=== PATIENT | female | born 1930 | race Caucasian/White ===

== ENCOUNTER 2017-08-01 13:08 | Outpatient (RCR) | payer MEDICARE, OTHER ==
[~2017-08-01 13:08] MED LIST: ALTACE; ASA81 MG; CARVEDILOL3.125 MG PO; COUMADIN3 MG PO; CRESTOR10 MG PO; ESIDRIX25 MG PO; IRBESARTAN150 MG PO; MINERAL OIL/PETROLAT/GLYCERI 6OZ BTL ONE; MUPIROCIN 2% OINT 22 GM TUBE ONE; NORCO 5-325 TA1 EACH PO; OMEPRAZOLE20 MG PO; OMEPRAZOLE40 MG PO; POTASSIUM CITRA5 MEQ PO; PREDNISONE2.5 MG PO; RAMIPRIL10 MG PO; WARFARIN SODIUM1 MG PO; WARFARIN SODIUM3 MG PO; Z.0.BENICAR HCT 201; Z.0.CARVEDILOL6.25 M PO; Z.0.CRESTOR10 MG PO; Z.0.RAMIPRIL10 MG PO; [UNRECOGNIZED DRUG - REMARK]
== END 2017-08-04 ==
LOC: WCC 13:08
PROVIDERS: ATTEND Podiatrist Foot & Ankle Surgery
DX: L89.622 Pressure ulcer of left heel, stage 2 (principal); L23.9 Allergic contact dermatitis, unspecified cause; I87.2 Venous insufficiency (chronic) (peripheral); R60.0 Localized edema; W45.8XXA Other foreign body or object entering through skin, initial encounter; Z74.01 Bed confinement status
CPT/HCPCS: 29581; G0463

== ENCOUNTER → 2017-09-04 | Outpatient (RCR) | payer MEDICARE, OTHER ==
[~2017-09-04] MED LIST changes: +LIDOCAINE VISC 2% SOLN 15 ML UDC ONE
== END ==
LOC: WCC 08-09 15:02
PROVIDERS: ATTEND Podiatrist Foot & Ankle Surgery
DX: I87.332 Chronic venous hypertension (idiopathic) with ulcer and inflammation of left lower extremity (principal); I87.331 Chronic venous hypertension (idiopathic) with ulcer and inflammation of right lower extremity; L97.321 Non-pressure chronic ulcer of left ankle limited to breakdown of skin; L97.311 Non-pressure chronic ulcer of right ankle limited to breakdown of skin; R60.0 Localized edema; I87.2 Venous insufficiency (chronic) (peripheral); W45.8XXA Other foreign body or object entering through skin, initial encounter; Z74.01 Bed confinement status
CPT/HCPCS: 29581 ×7; G0463 ×3

== ENCOUNTER 2017-09-27 10:55 | Outpatient (RCR) | payer MEDICARE, OTHER ==
[~2017-09-27 10:55] MED LIST changes: -LIDOCAINE VISC 2% SOLN 15 ML UDC ONE; -MINERAL OIL/PETROLAT/GLYCERI 6OZ BTL ONE
[2017-09-27] MEDS ORDERED: MUPIROCIN 2% OINT 22 GM TUBE ONE (15:32)
[2017-09-27] MEDS ORDERED: MINERAL OIL/PETROLAT/GLYCERI 6OZ BTL ONE (15:32)
== END 2017-10-02 ==
LOC: WCC 10:55
PROVIDERS: ATTEND Podiatrist Foot & Ankle Surgery
DX: S41.101A Unspecified open wound of right upper arm, initial encounter (principal); S41.102A Unspecified open wound of left upper arm, initial encounter; I87.2 Venous insufficiency (chronic) (peripheral); I89.0 Lymphedema, not elsewhere classified; R60.0 Localized edema; L24.1 Irritant contact dermatitis due to oils and greases; L25.1 Unspecified contact dermatitis due to drugs in contact with skin; S59.919A Unspecified injury of unspecified forearm, initial encounter; S80.919A Unspecified superficial injury of unspecified knee, initial encounter; W45.8XXA Other foreign body or object entering through skin, initial encounter; Z74.01 Bed confinement status

== ENCOUNTER 2017-10-15 13:11 | Outpatient (RCR) | payer MEDICARE, OTHER ==
[~2017-10-15 13:11] MED LIST changes: +MINERAL OIL/PETROLAT/GLYCERI 6OZ BTL ONE; -MUPIROCIN 2% OINT 22 GM TUBE ONE
[2017-10-15] MEDS ORDERED: MINERAL OIL/PETROLAT/GLYCERI 6OZ BTL ONE (18:42)
[2017-10-15] MEDS ORDERED: MUPIROCIN 2% OINT 22 GM TUBE ONE (18:42)
[2017-10-18] MEDS ORDERED: CYMBALTA30 MG PO (11:20)
[2017-10-18] MEDS ORDERED: MYRBETRIQ25 MG PO (11:20)
[2017-10-18] MEDS ORDERED: VESICARE5 MG PO (11:20)
[2017-10-18] MEDS ORDERED: FOLIC ACID1 MG PO (11:22)
[2017-10-18] MEDS ORDERED: METHOTREXATE2.5 MG PO (11:22)
== END 2017-11-02 ==
LOC: WCC 13:11
PROVIDERS: ATTEND Podiatrist Foot & Ankle Surgery
DX: I87.311 Chronic venous hypertension (idiopathic) with ulcer of right lower extremity (principal); L97.811 Non-pressure chronic ulcer of other part of right lower leg limited to breakdown of skin; L89.92 Pressure ulcer of unspecified site, stage 2; S80.821A Blister (nonthermal), right lower leg, initial encounter; S41.102A Unspecified open wound of left upper arm, initial encounter; S41.101A Unspecified open wound of right upper arm, initial encounter; I87.2 Venous insufficiency (chronic) (peripheral); R60.0 Localized edema; I89.0 Lymphedema, not elsewhere classified; W45.8XXA Other foreign body or object entering through skin, initial encounter; Z74.01 Bed confinement status

== ENCOUNTER 2017-10-18 11:05 | Inpatient (IN) | payer MEDICARE, OTHER ==
[~2017-10-18] VITALS: Ht 162.6 cm; Wt 78.7 kg
[~2017-10-18 11:05] MED LIST changes: -MINERAL OIL/PETROLAT/GLYCERI 6OZ BTL ONE
--- OUTSIDE RECORDS SUMMARY | 2017-10-18 11:09 | XMS REPORT | Continuity of Care Document ---
Author Author [facility] Organization [facility] Address [address] [place] [address] Phone Unavailable Care Team Providers Care Protohistorian Name Role Phone VINEET CRUM MD PCP Insurance Providers Guarantor Oj Araiza Address [address] [place] [address] Email [email or web address] Payer AARP Policy Number [id number] Subscriber's Name Oj Araiza R Relationship 18 Self / Same As Patient Group Number [id number] Group Name RETIRED Effective Date 16 Payer Medicare A & B Policy Number [id number] Subscriber's Name Oj Araiza R Relationship 18 Self / Same As Patient Group Number [id number] Group Name RETIRED Effective Date 97 Payer Aetna o Policy Number [id number] Subscriber's Name Oj Araiza R Relationship 18 Self / Same As Patient Group Number [id number] Group Name [id number] Effective Date 91 Advance Directives Directive Response Recorded Date/Time Does the patient have an advance directive? No 11/02/15 8:43am If yes, is advance directive on file with [facility]? No 10/23/14 7:00am If not on file with [facility] will patient provide a copy? No 11/02/15 8:43am Do you have a Directive to Physician? No 09/06/17 11:41am Do you have a Medical Power of Renovation Plant Supervisor? No 09/06/17 11:41am Do you have an out of hospital Do Not Resuscitate Order? No 09/06/17 11:41am Do you have any special needs we should be aware of? No 09/06/17 11:41am Do you have a support person here with you today? No 09/06/17 11:41am Did patient receive Notice of Privacy Practices? Yes 09/06/17 11:41am Did patient receive patient rights and responsibilities? Yes 09/06/17 11:41am Problems Medical Problem Onset Date Status Acute renal insufficiency 10/23/2014 Acute Chest pain 10/23/2014 Acute Hyperkalemia 10/23/2014 Acute Medications Current Home Medications Medication Dose Units Route Directions Days Qty Instructions Start Date Carvedilol 3.125 Mg Tablet 6.25 Mg Oral Twice A Day 60 Tab Hydrochlorothiazide (Esidrix*) 25 Mg Tab 12.5 Mg Oral Daily Hydrocodone Bit/Acetaminophen (Liberty 5-325 Tablet) 1 Each Tablet 1 Each Oral Every 6 Hours as needed for Pain Irbesartan 150 Mg Tablet 150 Mg Oral Daily 30 Tab Omeprazole 20 Mg Capsule.dr 20 Mg Oral Daily Potassium Citrate 5 Meq Tablet.er 5 Meq Oral Three Times A Day Prednisone 2.5 Mg Tablet 1.25 Mg Oral Daily Ramipril 10 Mg Capsule 10 Mg Oral Twice A Day Rosuvastatin Calcium (Crestor) 10 Mg Tab 10 Mg Oral Daily THERAPEUTICALLY SUBSTITUTED WITH SIMVASTATIN 40MG Unknown Med For Ra Warfarin Sodium 1 Mg Tablet 1.5 Mg Oral Daily 30 Tab Past Home Medications Medication Directions Ordered Status Aspirin (Asa) 81 Mg Tab, Discontinued Carvedilol 6.25 Mg Tablet, 6.25 Mg Oral Twice A Day Discontinued Hydrochlorothiazide (Esidrix*) 25 Mg Tab, 12.5 Mg Oral Daily Discontinued Hydrocodone Bit/Acetaminophen (Liberty 5-325 Tablet) 1 Each Tablet, 1 Each Oral Every 6 Hours as needed for Pain Discontinued Irbesartan 150 Mg Tablet, 150 Mg Oral Daily Discontinued Olmesartan/Hydrochlorothiazide (Benicar Hct 20-12.5 Mg Tablet) 1 Each Tablet, Discontinued Omeprazole 40 Mg Capsule.dr, 20 Mg Oral Daily Discontinued Potassium Citrate 5 Meq Tablet.er, Meq Oral Three Times A Day Discontinued Ramipril 10 Mg Capsule, 10 Mg Oral Twice A Day Discontinued Rosuvastatin Calcium (Crestor) 10 Mg Tablet, 10 Mg Oral Daily Discontinued Warfarin Sodium 3 Mg Tablet, 1 Mg Oral Daily Discontinued Warfarin Sodium (Coumadin*) 3 Mg Tablet, 1 Mg Oral Today At 5:00PM Discontinued Social History Social History Problem Response Recorded Date/Time Onset Date Status Hx Psychiatric Problems No 10/23/2014 7:00am Not Applicable Not Applicable Hospital Discharge Instructions No hospital discharge instruction information available. Plan of Care Prescriptions See Medication Section Functional Status No functional status information available. Allergies, Adverse Reactions, Alerts Allergen Type Severity Reaction Status Last Updated Morphine Adverse Reaction Intermediate VOMITING, DIARRHEA Active 11/14/14 Immunizations No immunization information available. Vital Signs No vital sign information available. Results No relevant diagnostic test, laboratory data and/or discharge summary information available. Procedures No procedure information available. Encounters Encounter Location Arrival/Admit Date Discharge/Depart Date Attending Provider Discharged [facility] 09/27/17 10:55am 11:59pm DAAN FRY DPM Discharged [facility] 08/09/17 3:02pm 09/04/17 11:59pm DANA FRY DPM Discharged [facility] 07/05/17 1:22pm 08/04/17 11:59pm YANETH WOODWARD DPM Discharged [facility] 06/20/17 1:29pm 07/04/17 11:59pm YANETH WOODWARD DPM Registered Clinic [facility] 02/18/17 8:51am VINEET CRUM MD
--- OUTSIDE RECORDS SUMMARY | 2017-10-18 11:09 | XMS REPORT | Clinical Summary ---
Author Author [facility] Organization [facility] Address Unknown Phone Unavailable Care Team Providers Care Cap Lining Machine Operator Name Role Phone Jorge Larson MD PCP Unavailable Allergies Active Allergy Reactions Severity Noted Date Comments Morphine 07/27/2017 Current Medications Prescription Sig. Disp. Refills Start End Date Status Date ciprofloxacin (CIPRO) 500 Take 1 tablet (500 mg 14 tablet 0 07/27/20 08/03/20 MG tablet total) by mouth 2 (two) 17 17 times a day for 7 days. Active Problems Problem Noted Date Urinary tract infectious disease 12/03/2015 Encounters Date Type Specialty Care Team Description 07/27/2017 Emergency Emergency Medicine Divya Fernando MD Acute cystitis with hematuria (Primary Dx); Poisoning by warfarin sodium, accidental or unintentional, initial encounter after 10/17/2016 Immunizations Name Dates Previously Given Next Due Pneumococcal Conjugate 03/16/2015 13-Valent Social History Tobacco Use Types Packs/Day Years Used Date Never Smoker Smokeless Tobacco: Never Used Alcohol Use Drinks/Week oz/Week Comments No Sex Assigned at Date Recorded Not on file Last Filed Vital Signs Vital Sign Reading Time Taken Blood Pressure 142/63 07/27/2017 12:00 PM MACHINE BILLER Pulse 70 07/27/2017 12:00 PM MACHINE BILLER Temperature 37.7 C (99.8 F) 07/27/2017 9:45 AM MACHINE BILLER Respiratory Rate 16 07/27/2017 12:00 PM MACHINE BILLER Oxygen Saturation 98% 07/27/2017 12:00 PM MACHINE BILLER Inhaled Oxygen - - Concentration Weight 76.7 kg (169 lb) 07/27/2017 9:45 AM MACHINE BILLER Height 162.6 cm (5' 4") 07/27/2017 9:45 AM MACHINE BILLER Body Mass Index 29.01 07/27/2017 9:45 AM MACHINE BILLER Plan of Treatment Not on file Results * Urinalysis screen and microscopy, with reflex to culture (07/27/2017 10:09 AM) Component Value Ref Range Specimen site Clean catch Color, UA Yellow Appearance, UA Slightly-Cloudy Specific gravity, UA 1.014 1.001 - 1.035 pH, UA 5.0 5.0 - 8.5 Protein, UA 1+ (A) Negative Glucose, UA Negative Negative Ketones, UA Negative Negative Bilirubin, UA Negative Negative Blood, UA Large (A) Negative Nitrite, UA Negative Negative Urobilinogen, UA Negative <2.0 Leukocyte esterase, UA Negative Negative Round epithelial cells, Many 0 - 1 /HPF UA WBC, UA 61-80 (H) 0 - 4 /HPF RBC, UA 61-80 (H) 0 - 2 /HPF Bacteria, UA Trace None seen WBC clumps, UA Few (A) Yeast, UA Moderate (A) Yeast with pseudohyphae, None seen UA Specimen Performing Laboratory Urine [facility] DEPARTMENT OF PATHOLOGY AND GENOMIC MEDICINE [address] [place] [address] [place] [address] * Gram stain (07/27/2017 10:09 AM) Component Value Ref Range Gram stain result No WBC's or organisms seen. Comment: Specimen Information Specimen Source: Urine Specimen Site: See UA Specimen Performing Laboratory Urine [facility] DEPARTMENT OF PATHOLOGY AND GENOMIC MEDICINE [address] [place] [address] * Urine culture (07/27/2017 10:09 AM) Component Value Ref Range Urine culture isolate Mixed Gram positive sumaya 10-2 cfu/ml (A) Comment: Specimen Information Specimen Source: Urine Specimen Site: See UA Urine culture isolate Gram negative rods <10-1 cfu/ml (A) Specimen Performing Laboratory Urine [facility] DEPARTMENT OF PATHOLOGY AND GENOMIC MEDICINE [address] [place] [address] * Prothrombin time with INR (07/27/2017 9:58 AM) Component Value Ref Range Prothrombin time 54.3 (H) 12.0 - 15.0 sec INR 5.9 (HH) Comment: The International Normalized Ratio (INR) is a therapeutic monitoring tool for patients who are stable on oral anticoagulant therapy. An INR of 2.0-3.0 is suggested for deep vein thrombosis/pulmonary embolism. Results called to and read back by TANJA LOVELACE IN ER 07/27/2017 @ 10:37 by PARISH. Specimen Performing Laboratory Blood [facility] DEPARTMENT OF PATHOLOGY AND GENOMIC MEDICINE [address] [place] [address] * CBC hemogram (07/27/2017 9:58 AM) Component Value Ref Range WBC 9.08 4.50 - 11.00 k/uL RBC 3.56 (L) 4.20 - 5.50 m/uL HGB 10.6 (L) 12.0 - 16.0 g/dL HCT 33.5 (L) 37.0 - 47.0 % MCV 94.1 82.0 - 100.0 fL MCH 29.8 27.0 - 34.0 pg MCHC 31.6 31.0 - 37.0 g/dL RDW - SD 55.5 (H) 37.0 - 55.0 fL MPV 10.2 8.8 - 13.2 fL Platelet count 214 150 - 400 k/uL Nucleated RBC 0.00 /100 WBC Specimen Performing Laboratory Blood [facility] DEPARTMENT OF PATHOLOGY AND GENOMIC MEDICINE [address] [place] [address] after 10/17/2016 Insurance Payer Benefit Subscriber ID Type Phone Address Plan / Group AETNA AETNA xxxxxxxxxx HMO HMO,POS,EP O, MC/EC MEDICARE MEDICARE xxxxxxxxxx Medicare [place], [place] PART A AND B AARP AARP xxxxxxxxxx [place] [address]
[2017-10-18] MEDS ORDERED: SODIUM CHLORIDE 0.9% 1000ML 1,000 ML IV STA (11:17)
[2017-10-18] MEDS ORDERED: CYMBALTA30 MG PO (11:20)
[2017-10-18] MEDS ORDERED: MYRBETRIQ25 MG PO (11:20)
[2017-10-18] MEDS ORDERED: VESICARE5 MG PO (11:20)
[2017-10-18] MEDS ORDERED: METHOTREXATE2.5 MG PO (11:22)
[2017-10-18] MEDS ORDERED: FOLIC ACID1 MG PO (11:22)
[2017-10-18] MEDS ORDERED: TETANUS/DIPHTHERIA TOX ADULT 0.5 ML SYR IM ONE (11:30)
[2017-10-18 11:49] LABS: BASOPHILS % 0.1 % (0.0-1.0); EOSINOPHILS % 0.2 % (0.0-6.0); HEMATOCRIT 31.9 % (34.2-44.1); HEMOGLOBIN 10.6 g/dL (12.0-16.0); LYMPHOCYTES # (AUTO) 0.5 (1.0-3.2); LYMPHOCYTES % 5.7 % (18.0-39.1); MEAN CORPUSCULAR HEMOGLOBIN 29.1 pg (28-32); MEAN CORPUSCULAR HGB CONC 33.2 g/dL (31-35); MEAN CORPUSCULAR VOLUME 87.6 fL (81-99); MONOCYTES % 0.2 % (4.4-11.3); NEUTROPHILS # (AUTO) 8.8 (2.1-6.9); NEUTROPHILS % 93.4 % (38.7-80.0); PLATELET COUNT 188 x10e3/uL (140-360); RED BLOOD COUNT 3.64 x10e6/uL (3.6-5.1); RED CELL DISTRIBUTION WIDTH 16.3 % (11.7-14.4)
[2017-10-18 11:55] LABS: PARTIAL THROMBOPLASTIN TIME 90.4 seconds (23.8-35.5)
[2017-10-18 11:57] LABS: INR 11.86; PROTHROMBIN TIME 85.6 seconds (11.9-14.5)
[2017-10-18] MEDS ORDERED: PANTOPRAZOLE 40 MG 10ML VIAL IV STA (11:58)
[2017-10-18 12:05] LABS: ALBUMIN 2.3 g/dL (3.5-5.0); ALBUMIN/GLOBULIN RATIO 0.9 (0.8-2.0); ANION GAP 20.6 mmol/L (8-16); CALCIUM 9.1 mg/dL (8.4-10.2); CREATININE, SERUM 2.63 mg/dL (0.57-1.11); POTASSIUM 5.6 mmol/L (3.5-5.1)
[2017-10-18] MEDS ORDERED: PIPER-TAZ 3.375 GM 50 ML IV STA (12:05)
--- NOTE | 2017-10-18 12:06 | Diagnostic Imaging Report ---
PROCEDURE: A single AP view of the chest. COMPARISON: 10/23/14 INDICATIONS: LEG WEAKNESS FINDINGS: Lines/tubes: None. Lungs: Low lung volumes. Left lower lung field linear atelectasis/scarring. Mild central vascular congestion. Pleura: There is no pleural effusion or pneumothorax. Heart and mediastinum: Enlarged cardiomediastinal silhouette, accentuated by low lung volumes. Median sternotomy wires. Bones: No acute bony abnormality. Partially imaged lumbar spine fixation hardware. Right humeral head prosthesis. IMPRESSION: Limited by shallow inspiration. Mild central vascular congestion and enlarged cardiomediastinal silhouette, accentuated by low lung volumes. Dictated by: Nate Becerra M.D. on 10/18/2017 at 12:06 Electronically approved by: Nate Becerra M.D. on 10/18/2017 at 12:06
[2017-10-18 12:09] LABS: MAGNESIUM 0.9 MG/DL (1.3-2.1)
[2017-10-18] MEDS ORDERED: ONDANSETRON HCL INJ 2 MG/ML VIAL IV PRN (12:15)
[2017-10-18] MEDS ORDERED: MAGNESIUM SULFATE 2GM/50ML 50 ML IV ONE (12:15)
[2017-10-18] MEDS ORDERED: FENTANYL CITRATE/PF 100MCG/2 ML INJ IV SCH (12:15)
[2017-10-18 12:18] LABS: BILIRUBIN,URINE NEGATIVE (NEGATIVE); CLARITY,URINE CLEAR (CLEAR); COLOR,URINE YELLOW (YELLOW); KETONES,URINE NEGATIVE (NEGATIVE); LEUKOCYTE ESTERASE ,URINE NEGATIVE (NEGATIVE); NITRITE,URINE NEGATIVE (NEGATIVE); PROTEIN,URINE DIPSTICK NEGATIVE (NEGATIVE); URINE UROBILINOGEN 0.2 mg/dL (0.2 - 1)
[2017-10-18 12:24] LABS: THYROID STIMULATING HORMONE 2.019 uIU/mL (0.350-4.940)
[2017-10-18] MEDS ORDERED: SOD POLYSTYRENE SULFONATE SUSP 15 GM/60 ML BTL PO ONE ×2 (12:30→19:30)
[2017-10-18 12:33] LABS: BACTERIA,URINE FEW /HPF; EPITHELIAL CELLS,URINE RARE /LPF; WBC,URINE (MAN) 0-5 /HPF (0-5)
[2017-10-18 12:34] LABS: AMORPHOUS SEDIMENT,URINE MODERATE (FEW)
[2017-10-18 12:40] LABS: LYMPHOCYTES % (MANUAL) 4 % (19-48); NEUTROPHILS % (MANUAL) 96 % (40-74)
[2017-10-18 12:42] LABS: ANISOCYTOSIS SLIGHT; PLATELET ESTIMATE ADEQUATE; PLATELET MORPHOLOGY COMMENT NORMAL; RBC MORPHOLOGY COMMENT NORMAL
--- OUTSIDE RECORDS SUMMARY | 2017-10-18 12:58 | XMS REPORT | Clinical Summary ---
Author Author [facility] Organization [facility] Address Unknown Phone Unavailable Care Team Providers Care Bonsai Tender Name Role Phone Jorge Larson MD PCP [...] Taken Blood Pressure 142/63 07/27/2017 12:00 PM EXHIBITIONS AND COLLECTIONS MANAGER Pulse 70 07/27/2017 12:00 PM EXHIBITIONS AND COLLECTIONS MANAGER Temperature 37.7 C (99.8 F) 07/27/2017 9:45 AM EXHIBITIONS AND COLLECTIONS MANAGER Respiratory Rate 16 07/27/2017 12:00 PM EXHIBITIONS AND COLLECTIONS MANAGER Oxygen Saturation 98% 07/27/2017 12:00 PM EXHIBITIONS AND COLLECTIONS MANAGER Inhaled Oxygen - - Concentration Weight 76.7 kg (169 lb) 07/27/2017 9:45 AM EXHIBITIONS AND COLLECTIONS MANAGER Height 162.6 cm (5' 4") 07/27/2017 9:45 AM EXHIBITIONS AND COLLECTIONS MANAGER Body Mass Index 29.01 07/27/2017 9:45 AM EXHIBITIONS AND COLLECTIONS MANAGER Plan of Treatment Not on file Results [...] None seen UA Specimen Performing Laboratory Urine [facility] DEPARTMENT OF PATHOLOGY AND GENOMIC MEDICINE [address] [place] [address] [place] [address] * Gram stain (07/27/2017 10:09 AM) Component Value Ref Range Gram stain result No WBC's or organisms seen. Comment: Specimen Information Specimen Source: Urine Specimen Site: See UA Specimen Performing Laboratory Urine [facility] DEPARTMENT OF PATHOLOGY AND GENOMIC MEDICINE [address] [place] [address] * Urine culture (07/27/2017 10:09 AM) Component Value Ref Range Urine culture isolate Mixed Gram positive sumaya 10-2 cfu/ml (A) Comment: Specimen Information Specimen Source: Urine Specimen Site: See UA Urine culture isolate Gram negative rods <10-1 cfu/ml (A) Specimen Performing Laboratory Urine [facility] DEPARTMENT OF PATHOLOGY AND GENOMIC MEDICINE [address] [place] [address] * Prothrombin time with INR (07/27/2017 9:58 [...] 10:37 by PARISH. Specimen Performing Laboratory Blood [facility] DEPARTMENT OF PATHOLOGY AND GENOMIC MEDICINE [address] [place] [address] * CBC hemogram (07/27/2017 9:58 AM) Component [...] 0.00 /100 WBC Specimen Performing Laboratory Blood [facility] DEPARTMENT OF PATHOLOGY AND GENOMIC MEDICINE [address] [place] [address] after 10/17/2016 Insurance Payer Benefit Subscriber ID Type Phone Address Plan / Group AETNA AETNA xxxxxxxxxx HMO HMO,POS,EP O, MC/EC MEDICARE MEDICARE xxxxxxxxxx Medicare [place], [place] PART A AND B AARP AARP xxxxxxxxxx [place] [address]
--- OUTSIDE RECORDS SUMMARY | 2017-10-18 12:59 | XMS REPORT ---
[facility] Address Unknown Phone Unavailable Care Team Providers Care Watch Engine Operator Name Role Phone JENA SMITH Unavailable Unavailable Problems This patient has no known problems. Allergies, Adverse Reactions, Alerts This patient has no known allergies or adverse reactions. Medications This patient has no known medications. Results Test Description Test Time Test Comments Text Results Atomic Results Result Comments CHEST SINGLE (PORTABLE) [place] [address] Patient Name: OJ GARAY MR #: [id number] : 1930 Age/Sex: 87/F Req #: [id number] Adm Physician: Ordered by: JENA SMITH MD, MD Report #: [id number] Location: ER Room/Bed: Procedure: [id number] DX/CHEST SINGLE (PORTABLE) Exam Date: 10/18/17 Exam Time: 1155 REPORT STATUS: Signed PROCEDURE: A single AP view of the chest. COMPARISON: 10/23/14 INDICATIONS: LEG WEAKNESS FINDINGS: Lines/tubes: None. Lungs: Low lung volumes. Left lower lung field linear atelectasis/scarring. Mild central vascular congestion. Pleura: There is no pleural effusion or pneumothorax. Heart and mediastinum: Enlarged cardiomediastinal silhouette , accentuated by low lung volumes. Median sternotomy wires. Bones: No acute bony abnormality. Partially imaged lumbar spine fixation hardware. Right humeral head prosthesis. IMPRESSION: Limited by shallow inspiration. Mild central vascular congestion and enlarged cardiomediastinal silhouette, accentuated by low lung volumes. Dictated by: Nate Becerra M.D. on 10/18/2017 at 12:06 Electronically approved by: Nate Becerra M.D. on 10/18/2017 at 12:06 Dictated By: NATE BECERRA MD [id number] Transcribed By: ARIANNA on 10/18/17 1206 COPY TO: JENA SMITH
[2017-10-18] MEDS ORDERED: PANTOPRAZOLE 40 MG 10ML VIAL IV SCH (13:00)
--- NOTE | 2017-10-18 14:07 | Diagnostic Imaging Report ---
EXAM: CT Chest, Abdomen and Pelvis WITHOUT contrast INDICATION: \S\FALL \[id number] \S\1226 \S\Y COMPARISON: None. TECHNIQUE: Chest, abdomen and pelvis were scanned utilizing a multidetector helical scanner from the lung apex to the pubic symphysis without administration of IV contrast. Absence of intravenous contrast decreases sensitivity for detection of focal lesions and vascular pathology. Coronal and sagittal reformations were obtained. Routine protocol was performed. IV CONTRAST: None ORAL CONTRAST: Water COMPLICATIONS: None RADIATION DOSE: Total DLP: 874.53 mGy*cm Estimated effective dose: (DLP x 0.015 x size factor) mSv CTDIvol has been reviewed. It is below the limits set by the Radiation Protocol Committee (RPC). FINDINGS: LINES and TUBES: None. LUNGS AND AIRWAYS: Bilateral airspace opacities, especially in the upper lobes. Bilateral lower lobe atelectasis/scarring. Airways are normal. PLEURA: The pleural spaces are clear. HEART AND MEDIASTINUM: The thyroid gland is normal. No mediastinal, hilar or axillary lymphadenopathy. The heart is normal in size.. There is no pericardial effusion. Atherosclerotic calcification of coronary arteries. Median sternotomy wires. HEPATOBILIARY: Unenhanced liver is unremarkable. No evidence of injury. No biliary ductal dilation. GALLBLADDER: Not visualized. SPLEEN: No splenomegaly. PANCREAS: No focal masses or ductal dilatation. ADRENALS: No adrenal nodules KIDNEYS/URETERS: No hydronephrosis. 1.9 cm hyperdense exophytic right renal inferior pole lesion. There is also a hypodense left midpole subcentimeter lesion. No stones. GI TRACT: No abnormal distention, wall thickening, or evidence of bowel obstruction. Appendix is not visualized. PELVIC ORGANS/BLADDER: Limited evaluation due to streak artifacts. Bladder is decompressed by a Bailey catheter in place. LYMPH NODES: No lymphadenopathy. VESSELS: There is moderate atherosclerotic disease in the aorta and major arterial branches. PERITONEUM / RETROPERITONEUM: No free air or fluid. BONES: Evaluation is limited by generalized demineralization. Mildly displaced fractures of the posterior 11th and 10th right ribs. Old fracture of the posterior left 11th rib. Advanced degenerative changes of left shoulder. Right shoulder arthroplasty. Old appearing compression fracture of T12 vertebral body. Right hip prosthesis. Advanced degenerative changes of lumbar spine. L2-L5 posterior fusion and laminectomies. SOFT TISSUES: Unremarkable. Elevated right hemidiaphragm. IMPRESSION: Limited study without intravenous contrast. 1. Bilateral upper lung lobe patchy opacities, concerning for infectious/inflammatory process. 2. Mildly displaced posterior right 10th and 11th rib fractures. No pneumothorax. 3. No evidence of traumatic injury in the abdomen/pelvis. 4. Right renal inferior pole hyperdense exophytic lesion is probably a hemorrhagic/proteinaceous cyst. Nonurgent renal ultrasound can be obtained to further evaluate. 5. Old appearing T12 vertebral body compression fracture. Signed by: Dr. Nate Becerra MD on 10/18/2017 2:03 PM
[2017-10-18 14:30] VITALS: BP 113/54
--- NOTE | 2017-10-18 15:26 | Diagnostic Imaging Report ---
Exams: Head and cervical spine CTs without IV contrast History: Fall, leg weakness Comparison studies: None Technique: Axial images were obtained from the brain and cervical spine. Coronal and sagittal images reconstructed from the axial data. Intravenous contrast: None Findings: Head CT: Scalp: No abnormalities. Bones: No fractures, blastic or lytic lesions. Extra-axial spaces: No masses. No fluid collections. Brain sulci: Mildly prominent but age appropriate. Ventricles: Mild compensatory dilatation. No hydrocephalus. Parenchyma: No mass, acute hemorrhage or acute cortical vascular insults. 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 Additional small chronic insult with encephalomalacia in the cuneus gyrus of the left parietal lobe and within the right middle frontal gyrus. A few scattered hypodensities in the supratentorial white matter are nonspecific but most compatible with chronic small vessel ischemic changes. A more focal hypodensity in the right frontal centrum semiovale is compatible with age-indeterminate nonhemorrhagic lacunar insult. Sellar/suprasellar region: No abnormalities. Craniocervical junction: The foramen magnum is patent. No Chiari one malformation. Cervical spine CT: Fractures: None. Soft tissues: No gross acute abnormalities. Atlantoaxial articulation: Intact. The patient's head is rotated to the right at the time of the exam. Alignment: Mild anterolisthesis of C3 on C4 is most likely degenerative in etiology. Cervicolordotic curvature is otherwise maintain. Cervicomedullary junction: No abnormalities. The foramen magnum is patent. Vertebrae: No infection or neoplasm. Degenerative changes: Moderately degenerated C3-C4 disc with loss of disc height. Thickened ligamentum flavum with disc bulge/uncovered disc/disc bulge at C3-C4 and small disc bulges at C4-C5 and C5-C6 result in mild canal stenosis. Uncovertebral facet arthrosis with moderate left and mild right foraminal stenosis at C3-C4. Multilevel facet arthrosis, worse/moderate on the left C3-C4 and at C4-C5 and on the right at C5-C6. Incidental findings: Atherosclerotic calcifications in the carotid siphons and vertebral arteries. Bilateral lens replacements related to previous cataract surgery. Left sphenoid sinus is partially opacified and contains hyperdense inspissated secretions within the left lateral recess. Partially imaged dystrophic calcification or calcified nodule in the left thyroid lobe. IMPRESSION: Head CT: 1. No acute posttraumatic and abnormalities. 2. Age-indeterminate nonhemorrhagic right frontal centrum semiovale lacunar insult. 3. Mild chronic microvascular ischemic changes with chronic insult in the distal right MCA territory and smaller chronic cortical insults in the right frontal and left parietal lobes. Cervical spine CT: 1. No cervical spine fracture or acute subluxation. 2. Multilevel degenerative changes as described. 3. Cannot exclude ligament, spinal cord and or vascular abnormalities on the basis of this examination. Signed by: Dr. Jorge Villaseñor M.D. on 10/18/2017 3:23 PM
[2017-10-18] MEDS ORDERED: SODIUM CHLORIDE 0.9% 1000ML 1,000 ML IV SCH (17:15)
[2017-10-18] MEDS: MAGNESIUM OXIDE 400 MG TAB PO SCH (18:03)
[2017-10-18] MEDS ORDERED: FUROSEMIDE INJ 10 MG/ML 4 ML VIAL IV PRN (18:30)
[2017-10-18] MEDS ORDERED: LACTULOSE SYRUP 20 GM/30 ML UDC PO ONE (19:30)
[2017-10-18] MEDS ORDERED: FUROSEMIDE INJ 10 MG/ML 4 ML VIAL IV ONE (19:30)
[2017-10-18 20:00] VITALS: BP 19/56
[2017-10-18] MEDS ORDERED: PHYTONADIONE 10 MG/ML AMP SC ONE (20:00)
[2017-10-18 21:00] VITALS: BP 19/56
[2017-10-18] MEDS: SIMVASTATIN 20 MG TAB PO SCH (21:00)
[2017-10-18 21:49] LABS: CREATINE KINASE MB 4.8 ng/mL (0-5.0)
[2017-10-18] MEDS: PIPER-TAZ 3.375 GM 50 ML IV SCH (21:53)
[2017-10-18] MEDS ORDERED: SODIUM CHLORIDE 0.9% 250ML 250 ML ONE (22:49)
[2017-10-19] VITALS (7 sets, daily range): BP systolic 108–144; BP diastolic 53–77
--- NOTE | 2017-10-19 05:26 | Consultation ---
DATE OF CONSULTATION: October 19, 2017 An 87-year-old female renal consulted for hyperkalemia. She has some urological issue. Has been seeing Dr. Lehman. Initially, was seeing Dr. Rao, but she says he did not paid attention to her "problem", and then Dr. Larson referred her to Dr. Lehman. She is a very poor historian. Initially, she denied having any kidney issues as far as kidney function issues, but later on she admitted that yes she did have abnormal kidney function. She has been on and hydrochlorothiazide at home. She also has skin tears and edema in the lower extremity. She has got a stage I decubitus noted in the buttock area. Beside valsartan, she is on simvastatin. She is on ramipril. She is on mirabegron. She is on VESIcare. She received some Kayexalate for her hyperkalemia as per my discussion with the ER physician. She is also on carvedilol 12.5 mg p.o. b.i.d. She was given 1 dose of Zosyn and currently on 3.375 g q.8 h. She is on normal saline at 50 mL an hour. She also received magnesium sulfate 1 time dose for hypomagnesemia. She is bright and alert. Comfortable laying supine. No apparent distress. Denies any fever, chills, chest pain, or shortness of breath. ALLERGIES: SHE IS ALLERGIC TO MORPHINE. SOCIAL HISTORY: Does not smoke or drink. Lives with her . FAMILY HISTORY: Significant for hypertension. PHYSICAL EXAMINATION GENERAL: Awake, alert and laying supine. No apparent distress. VITALS: Blood pressure of 109/86, pulse rate 95 and afebrile. HEAD AND NECK: Cornea clear. Mucosa dry. LUNGS: Occasional rhonchi. Decreased air entry at bases. No rales. HEART: S1 and S2 audible. ABDOMEN: Otherwise, soft and nontender. LOWER EXTREMITY EXAMINATION: No edema. It is covered by Kerlix on both lower extremities. IMPRESSION AND PLAN 1. History overactive bladder: On VESIcare as well as meropenem, as well as mirabegron. 2. She has had prior coronary bypass surgery. 3. She has had bilateral knee replacement. 4. She has had right shoulder replacement. 5. History of osteoporosis. 6. Osteoarthritis. 7. Hypertension. 8. Now with hyperkalemia. 9. Mmblf-uw-vzfxwjf kidney failure, most likely. I will discuss with Dr. Larson to find out what her baseline serum creatinine is. Her white count is 9.3 and hemoglobin 10.6. Potassium 5.6, bicarbonate 16. Magnesium 0.9. BNP 112. Plan to discontinue the ramipril and valsartan. She should not be given combination medications. Will discontinue hydrochlorothiazide. Will discontinue IV normal saline and start IV bicarbonate drip for distal RTA. Will obtain urine culture. Dr. Braun of wound care to see for decubitus and the leg ulcers. Exact underlying ejection fraction unclear. Will order an echocardiogram. Job#: [id number] TONYA
[2017-10-19] MEDS: PIPER-TAZ 3.375 GM 50 ML IV SCH ×3 (06:00→21:09)
--- NOTE | 2017-10-19 06:38 | Diagnostic Imaging Report ---
CHEST SINGLE (PORTABLE), 10/19/2017 7:00 AM Technique: CHEST SINGLE (PORTABLE) Comparison: CT from 10/18/2017. Clinical history: Cough Findings: See Impression. Partially imaged right shoulder arthroplasty. Severe left glenohumeral degenerative change. Posttraumatic deformity of the left scapula. Impression: 1. Mild cardiomegaly status post median sternotomy. 2. Diffuse interstitial and scattered linear opacities, favor edema/atelectasis. More patchy opacities could be due to infection. 3. No significant effusion. Signed by: Dr Dolly Drew MD on 10/19/2017 6:35 AM
[2017-10-19 07:32] LABS: EOSINOPHILS % 0.1 % (0.0-6.0); LYMPHOCYTES # (AUTO) 0.3 (1.0-3.2); LYMPHOCYTES % 3.7 % (18.0-39.1); MEAN CORPUSCULAR HEMOGLOBIN 28.7 pg (28-32); MEAN CORPUSCULAR HGB CONC 33.3 g/dL (31-35); MEAN CORPUSCULAR VOLUME 86.2 fL (81-99); MONOCYTES % 0.1 % (4.4-11.3); NEUTROPHILS # (AUTO) 6.4 (2.1-6.9); NEUTROPHILS % 94.5 % (38.7-80.0); PLATELET COUNT 130 x10e3/uL (140-360); RED BLOOD COUNT 2.61 x10e6/uL (3.6-5.1); RED CELL DISTRIBUTION WIDTH 16.2 % (11.7-14.4)
[2017-10-19 07:45] LABS: HEMATOCRIT 22.5 % (34.2-44.1); HEMOGLOBIN 7.5 g/dL (12.0-16.0)
[2017-10-19 07:49] LABS: ALBUMIN 2.5 g/dL (3.5-5.0); ALBUMIN/GLOBULIN RATIO 0.9 (0.8-2.0); ANION GAP 15.9 mmol/L (8-16); CALCIUM 8.8 mg/dL (8.4-10.2); CREATININE, SERUM 2.6 mg/dL (0.57-1.11); MAGNESIUM 1.5 MG/DL (1.3-2.1); PHOSPHORUS 4.6 MG/DL (2.3-4.7)
[2017-10-19 07:51] LABS: POTASSIUM 2.9 mmol/L (3.5-5.1)
[2017-10-19 08:00] LABS: INR 2.35; PROTHROMBIN TIME 24.2 seconds (11.9-14.5)
[2017-10-19 08:01] LABS: PARTIAL THROMBOPLASTIN TIME 65.8 seconds (23.8-35.5)
[2017-10-19] MEDS ORDERED: POTASSIUM CHLORIDE 20MEQ/15ML UDC NG STA (08:04)
[2017-10-19 08:08] LABS: CREATINE KINASE MB 4.8 ng/mL (0-5.0)
[2017-10-19] MEDS ORDERED: SODIUM CHLORIDE 0.9% 250ML 250 ML IV SCH (08:15)
[2017-10-19] MEDS ORDERED: POTASSIUM CHLORIDE 20MEQ/15ML UDC PO SCH (08:30)
[2017-10-19] MEDS: FOLIC ACID 1 MG TAB PO SCH (08:44)
[2017-10-19] MEDS: MAGNESIUM OXIDE 400 MG TAB PO SCH ×2 (08:44→17:46)
[2017-10-19] MEDS: CARVEDILOL 12.5 MG TAB PO SCH ×2 (08:44→17:46)
[2017-10-19] MEDS: PANTOPRAZOLE SOD 40 MG TABEC PO SCH (08:44)
[2017-10-19] MEDS: PREDNISONE 5 MG/5 ML SOLN PO SCH (08:44)
[2017-10-19] MEDS: SOLIFENACIN SUCCINATE 5 MG TAB PO SCH (08:44)
[2017-10-19] MEDS: DULOXETINE HCL 30 MG DELAYED RELEASE PO SCH (08:44)
[2017-10-19] MEDS: MIRABEGRON 25 MG PO SCH (08:50)
[2017-10-19] MEDS ORDERED: SIMVASTATIN 40 MG TAB PO SCH (09:00)
[2017-10-19] MEDS ORDERED: PREDNISONE PO SCH (09:00)
[2017-10-19] MEDS ORDERED: RAMIPRIL 20 MG PO SCH (09:00)
[2017-10-19] MEDS ORDERED: HYDROCHLOROTHIAZIDE 25 MG TAB PO SCH (09:00)
[2017-10-19] MEDS ORDERED: METHOTREXATE SOD 2.5 MG TAB PO SCH (09:00)
[2017-10-19] MEDS ORDERED: IRBESARTAN 150 MG TAB PO SCH (09:00)
[2017-10-19] MEDS ORDERED: CARVEDILOL 3.125 MG TAB PO SCH (09:00)
[2017-10-19] MEDS: HYDROCODONE/APAP 5MG-325MG TAB PO PRN (11:04)
[2017-10-19 11:27] LABS: LYMPHOCYTES % (MANUAL) 4 % (19-48); MONOCYTES % (MANUAL) 2 % (3.4-9.0); NEUTROPHILS % (MANUAL) 94 % (40-74); PLATELET ESTIMATE ADEQUATE; PLATELET MORPHOLOGY COMMENT NORMAL; RBC MORPHOLOGY COMMENT NORMAL
--- NOTE | 2017-10-19 11:37 | Diagnostic Imaging Report ---
EXAM: Renal Ultrasound INDICATION: LEONARDO COMPARISON: CT abdomen and pelvis 10/18/2017. Ultrasound 10/17/2016 is unavailable TECHNIQUE: Transverse and longitudinal images of the kidneys and bladder were obtained. FINDINGS: Right Kidney: Size: 9.3 x 4.7 x 4.0 cm Echogenicity: Increased Parenchymal thickness: Normal Collecting system: No hydronephrosis Stones: None Cyst/Mass: 1.4 x 1.1 x 1.3 cm hypoechoic area in the superior pole Left Kidney: Size: 8.7 x 3.9 x 3.5 cm Echogenicity: Increased Parenchymal thickness: Normal Collecting system: No hydronephrosis Stones: None Cyst/Mass: None Bladder: Decompressed with a Bailey catheter in place. IMPRESSION: 1. Limited exam secondary to overlying bowel gas. 2. Mildly increased echogenicity of bilateral kidneys consistent medical renal disease. 3. 1.4 cm cyst in the superior pole of the right kidney is present. The remaining cysts that was seen on CT abdomen and pelvis 10/18/2017 is obscured by overlying bowel gas. Signed by: Dr. Dhaval Long M.D. on 10/19/2017 11:34 AM
[2017-10-19] MEDS: SODIUM BICARBONATE 8.4% SYRING 150 ML in DEXTROSE 5% 1,000 ML IV SCH (13:00)
[2017-10-19 15:28] LABS: HEMATOCRIT 25.3 % (34.2-44.1); HEMOGLOBIN 8.6 g/dL (12.0-16.0)
--- NOTE | 2017-10-19 16:22 | Consultation ---
DATE OF CONSULTATION: WOUND CONSULTATION Thank you, Dr. Dutton, for asking me to see this patient. HISTORY OF PRESENT ILLNESS: An 87-year-old female patient admitted with multiple skin tears and wounds lower extremities, coagulopathy, fall, pain and deconditioning. Patient is a poor historian. Wound consult was called for multiple ulcers to the lower extremities. PAST MEDICAL HISTORY: Hypertension, chronic kidney disease, rheumatoid arthritis, hyperlipidemia, DVT and on anticoagulation, coronary artery disease, degenerative joint disease, hyperlipidemia. SURGICAL HISTORY: Cholecystectomy, appendectomy, coronary artery bypass surgery, bilateral knee surgery, right shoulder surgery, exploratory laparotomy. MEDICATIONS 1. Carvedilol 3.125 mg tablet, 12.5 mg b.i.d. 2. Hydrochlorothiazide 25 mg daily. 3. [place] 5 per 325 q.6 p.r.n. 4. Irbesartan 150 mg daily. 5. 30 mg daily. 6. Potassium. 7. Ramipril 20 mg oral twice a day. 8. Crestor 10 mg daily. 9. Warfarin 1 mg daily. 10. Prednisone 2.5 mg daily. 11. Duloxetine 30 mg 2 capsules daily. 12. Mirbetriq 25 mg daily. 13. Methotrexate 12.5 mg p.o. weekly. 14. Folic acid 1 mg daily. SOCIAL HISTORY: Does not smoke, drink. PHYSICAL EXAMINATION VITAL SIGNS: Blood pressure 108/71, pulse of 96, temperature is 97.2. HEENT: Patient has edema to the face. LUNGS: Diminished at the base. CARDIOVASCULAR: Normal. ABDOMEN: Soft. Bowel sounds normal. LOWER EXTREMITIES: Patient has compressive dressing to the lower extremities. Edema seen to the upper extremities. CENTRAL NERVOUS SYSTEM: Patient is awake, cognitively impaired, bedbound, weak, deconditioned. SKIN Left lower leg: Patient has a skin tear secondary to fall, measures 1.4 x 6.5 x 0.2 cm, 100% pink. Right proximal lateral lower leg: Has a wound that measures 1 x 1 x 0.2 cm, 100% pink. Right distal lateral lower leg: Has a wound, measures 1 x 0.8 x 0.2 cm, 100% pink. Right upper arm: Skin tear secondary to fall measures 4 x 8 x 0.2 cm, covered with Steri-Strips. Left buttock: Stage 2 pressure ulcer measures 10 x 7 x cm, 100% pink. No signs of infection noted. Patient has Xeroform to the buttock per wound care nurse. ASSESSMENT 1. Fall with multiple skin tears to the lower extremities. 2. Deconditioning from multiple medical problems including rheumatoid arthritis, degenerative joint disease, and medical condition. PLAN: Apply Xeroform ABD pad, Kerlix and Coban to both legs and Maxorb AG between toes. Change dressing Saturday/Saturday/Saturday. Patient needs physical therapy. Thank you for the consultation. Will follow. Job#: [id number] EV
[2017-10-19] MEDS ORDERED: POTASSIUM CHLORIDE 20MEQ/15ML UDC NG SCH (17:27)
[2017-10-19] MEDS: SIMVASTATIN 20 MG TAB PO SCH (21:09)
[2017-10-20] VITALS (7 sets, daily range): BP systolic 125–160; BP diastolic 56–72
[2017-10-20] MEDS: SODIUM BICARBONATE 8.4% SYRING 150 ML in DEXTROSE 5% 1,000 ML IV SCH ×2 (02:13→13:07)
[2017-10-20] MEDS ORDERED: DEXTROSE 5% 0 ML IV ONE (02:14)
[2017-10-20] MEDS: PIPER-TAZ 3.375 GM 50 ML IV SCH ×3 (05:33→21:20)
[2017-10-20] MEDS: MIRABEGRON 25 MG PO SCH (09:00)
[2017-10-20] MEDS: PANTOPRAZOLE SOD 40 MG TABEC PO SCH (09:07)
[2017-10-20] MEDS: PREDNISONE 5 MG/5 ML SOLN PO SCH (09:07)
[2017-10-20] MEDS: MAGNESIUM OXIDE 400 MG TAB PO SCH ×2 (09:07→16:00)
[2017-10-20] MEDS: DULOXETINE HCL 30 MG DELAYED RELEASE PO SCH (09:07)
[2017-10-20] MEDS: FOLIC ACID 1 MG TAB PO SCH (09:07)
[2017-10-20] MEDS: CARVEDILOL 12.5 MG TAB PO SCH ×2 (09:07→16:00)
[2017-10-20] MEDS: SOLIFENACIN SUCCINATE 5 MG TAB PO SCH (09:08)
[2017-10-20 10:38] LABS: HEMATOCRIT 25.7 % (34.2-44.1); HEMOGLOBIN 8.5 g/dL (12.0-16.0); MEAN CORPUSCULAR HEMOGLOBIN 27.8 pg (28-32); MEAN CORPUSCULAR HGB CONC 33.1 g/dL (31-35); PLATELET COUNT 119 x10e3/uL (140-360); RED BLOOD COUNT 3.06 x10e6/uL (3.6-5.1); RED CELL DISTRIBUTION WIDTH 20.3 % (11.7-14.4)
[2017-10-20 11:12] LABS: ALBUMIN 2.1 g/dL (3.5-5.0); ALBUMIN/GLOBULIN RATIO 0.8 (0.8-2.0); ANION GAP 15.7 mmol/L (8-16); CALCIUM 8.5 mg/dL (8.4-10.2); CREATININE, SERUM 2.2 mg/dL (0.57-1.11)
[2017-10-20 11:15] LABS: POTASSIUM 2.7 mmol/L (3.5-5.1)
[2017-10-20 11:18] LABS: INR 2.63; PROTHROMBIN TIME 26.4 seconds (11.9-14.5)
[2017-10-20 11:19] LABS: PARTIAL THROMBOPLASTIN TIME 88.2 seconds (23.8-35.5)
[2017-10-20 11:27] LABS: FERRITIN 653.47 ng/mL (4.63-204.00); FREE T4 (FREE THYROXINE) 0.89 ng/dL (0.9-1.8); THYROID STIMULATING HORMONE 0.664 uIU/mL (0.350-4.940)
[2017-10-20] MEDS ORDERED: POTASSIUM CHLORIDE 20MEQ/100ML 200 ML IV ONE (11:45)
[2017-10-20 11:55] LABS: ANISOCYTOSIS SLIGHT; EOSINOPHILS % (MANUAL) 4 % (0-7); HYPOCHROMASIA SLIGHT; LYMPHOCYTES % (MANUAL) 6 % (19-48); NEUTROPHILS % (MANUAL) 90 % (40-74); PLATELET ESTIMATE SLIGHTLY DECREASED; PLATELET MORPHOLOGY COMMENT NORMAL; RBC MORPHOLOGY COMMENT NORMAL
[2017-10-20] MEDS ORDERED: SODIUM CHLORIDE 0.9% 50ML 50 ML ONE (12:22)
--- NOTE | 2017-10-20 12:24 | Progress Note ---
DATE: October 20, 2017 CARDIOLOGY PROGRESS NOTE SUBJECTIVE: The patient denies chest pain or shortness of breath. OBJECTIVE VITALS: Temperature 98.3 degrees, pulse 85, respiratory rate 17, blood pressure 125/56, oxygen saturation 95% on 2 L nasal cannula. GENERAL: Awake, alert and in no acute distress. LUNGS: Clear to auscultation bilaterally. No wheezes or crackles. CARDIOVASCULAR: Normal rate. Regular rhythm. No murmur. Normal S1 and S2. ABDOMEN: Soft and nontender. EXTREMITIES: Bilateral lower extremities with compression wraps. Left upper extremity compression wrapping is noted. Edema is present. CARDIAC MEDICATIONS 1. Carvedilol 12.5 mg p.o. b.i.d. 2. Simvastatin 10 mg p.o. at bedtime. LABS: WBC 6.69, hemoglobin 8.5, hematocrit 25.7, and platelets 119,000. Sodium 142, potassium 2.7, chloride 94, CO2 35, BUN 53, creatinine 2.2. Telemetry is normal sinus rhythm. IMPRESSION 1. Qvppw-tf-pggewqq kidney disease. 2. Hyperkalemia, resolved. 3. Elevated beta naturetic peptide. 4. Status post fall with multiple skin tears and wounds. 5. Coronary artery disease: Status post coronary artery bypass graft. 6. Rheumatoid arthritis. RECOMMENDATIONS: Echocardiogram was technically difficult, but left ventricular systolic function appears low normal with EF between 50% and 55%. There was impaired LV relaxation. Continue carvedilol and statin. Can attempt trial of diuretics if agreeable with nephrology. Currently, being evaluated for zcrkw-xq-ovgchpg kidney disease. Please have the patient follow up in the office for bilateral lower extremity venous Dopplers with insufficiency protocol. Most likely, she also has venous reflux given history of DVT. Keep extremities elevated. Continue compression wrappings. Blood pressure is acceptable for age. Thank you for this consult. We will continue to follow. Job#: [id number] TONYA ANNA
[2017-10-20 14:03] LABS: FOLATE > 20.0 ng/mL (7.0-15.4)
[2017-10-20] MEDS: BALSAM PERU/CASTOR OIL 60 GM OINT...G. TP SCH (16:00)
[2017-10-20] MEDS: SIMVASTATIN 20 MG TAB PO SCH (20:28)
[2017-10-21] VITALS (8 sets, daily range): BP systolic 113–194; BP diastolic 61–84
[2017-10-21] MEDS: PIPER-TAZ 3.375 GM 50 ML IV SCH ×3 (06:33→21:26)
[2017-10-21 07:17] LABS: EOSINOPHILS # (AUTO) 0.2 (0.0-0.4); EOSINOPHILS % 5.5 % (0.0-6.0); HEMATOCRIT 26.9 % (34.2-44.1); HEMOGLOBIN 8.7 g/dL (12.0-16.0); LYMPHOCYTES # (AUTO) 0.4 (1.0-3.2); LYMPHOCYTES % 8.7 % (18.0-39.1); MEAN CORPUSCULAR HEMOGLOBIN 28.3 pg (28-32); MEAN CORPUSCULAR HGB CONC 32.3 g/dL (31-35); MEAN CORPUSCULAR VOLUME 87.6 fL (81-99); MONOCYTES % 0.2 % (4.4-11.3); NEUTROPHILS # (AUTO) 3.5 (2.1-6.9); NEUTROPHILS % 84.4 % (38.7-80.0); PLATELET COUNT 109 x10e3/uL (140-360); RED BLOOD COUNT 3.07 x10e6/uL (3.6-5.1); RED CELL DISTRIBUTION WIDTH 19.9 % (11.7-14.4)
[2017-10-21 07:42] LABS: ALBUMIN 1.9 g/dL (3.5-5.0); ALBUMIN/GLOBULIN RATIO 0.7 (0.8-2.0); ANION GAP 12.9 mmol/L (8-16); CALCIUM 8.8 mg/dL (8.4-10.2); CREATININE, SERUM 1.9 mg/dL (0.57-1.11)
[2017-10-21 07:45] LABS: POTASSIUM 2.9 mmol/L (3.5-5.1)
[2017-10-21] MEDS ORDERED: POTASSIUM CHLORIDE 20 MEQ TAB CR PO STA (08:10)
[2017-10-21] MEDS: MIRABEGRON 25 MG PO SCH (09:00)
[2017-10-21 09:25] LABS: ANISOCYTOSIS SLIGHT; PLATELET ESTIMATE SLIGHTLY DECREASED; PLATELET MORPHOLOGY COMMENT NORMAL; RBC MORPHOLOGY COMMENT NORMAL
[2017-10-21] MEDS: PANTOPRAZOLE SOD 40 MG TABEC PO SCH (09:52)
[2017-10-21] MEDS: SOLIFENACIN SUCCINATE 5 MG TAB PO SCH (09:52)
[2017-10-21] MEDS: DULOXETINE HCL 30 MG DELAYED RELEASE PO SCH (09:52)
[2017-10-21] MEDS: MAGNESIUM OXIDE 400 MG TAB PO SCH ×2 (09:52→17:47)
[2017-10-21] MEDS: CARVEDILOL 12.5 MG TAB PO SCH ×2 (09:52→17:47)
[2017-10-21] MEDS: FOLIC ACID 1 MG TAB PO SCH (09:52)
[2017-10-21] MEDS: BALSAM PERU/CASTOR OIL 60 GM OINT...G. TP SCH ×2 (09:52→17:47)
--- NOTE | 2017-10-21 10:02 | Consultation ---
DATE OF CONSULTATION: October 19, 2017 CARDIOLOGY CONSULTATION REQUESTING PHYSICIAN: Dr. Ambrosio Larson. REASON FOR CONSULTATION: Suspected congestive heart failure. HISTORY OF PRESENT ILLNESS: This is an 87-year-old woman with a history of coronary artery disease status post 2-vessel CABG, hypertension, hyperlipidemia, chronic kidney disease stage 3, and rheumatoid arthritis, who presents after a fall. The patient was evaluated in the ER and was found to have supratherapeutic INR with INR of 11.86 and acute renal failure with creatinine of 2.63 as well as hyperkalemia at 5.6. BNP was elevated at 113. Due to her supratherapeutic INR, the patient was admitted and administered 5 mg of vitamin K and 1 unit FFP. The patient dropped her H?H to 7.5 and 22.5 this morning and was transfused 1 unit PRBCs today. The patient denies any cardiac complaints. Denies chest pain, shortness of breath, palpitation, orthopnea, PND, lightheadedness or syncope. She does endorse chronic lower extremity swelling but states this has been ongoing since her diagnosis of deep vein thrombosis. REVIEW OF SYSTEMS: Negative except as per HPI. PAST MEDICAL HISTORY 1. Coronary artery disease status post 2-vessel CABG in November of 2008. 2. Hypertension. 3. Hyperlipidemia. 4. Rheumatoid arthritis. 5. Chronic kidney disease. 6. History of DVT on chronic anticoagulation. PAST SURGICAL HISTORY 1. Two-vessel CABG. 2. Bilateral knee replacement. 3. Right shoulder surgery. ALLERGIES: PLEASE SEE EMR. MEDICATIONS: Please see medication list. SOCIAL HISTORY: No tobacco, alcohol or illicit drugs. FAMILY HISTORY: Noncontributory. PHYSICAL EXAMINATION VITAL SIGNS: Temperature 98.7 degrees, pulse 83, respiratory rate 18, blood pressure 124/60, oxygen saturation 98% on 2 liters nasal cannula. GENERAL: Elderly woman in no acute distress. HEENT: Normocephalic, atraumatic. Pupils equal, no scleral icterus. NECK: Supple. No thyromegaly or cervical lymphadenopathy, no carotid bruits. LUNGS: Clear to auscultation bilaterally. No wheezes or crackles. CARDIOVASCULAR: Normal rate, regular rhythm. No murmur. Normal S1 and S2. ABDOMEN: Soft, nontender. EXTREMITIES: Bilateral lower extremities with compression wrappings. However, she does have 1+ pitting edema in the dependent areas. NEURO: Nonfocal exam. LABS: WBC 6.76, hemoglobin 7.5, hematocrit 22.5, platelets 130. Sodium 139, potassium 2.9, chloride 102, CO2 24, BUN 70, creatinine 2.6. Troponin 0.214. BNP 113. INR 2.35. Chest x-ray: Mild cardiomegaly, status post median sternotomy. Diffuse interstitial and scattered linear opacities. Favor edema/atelectasis. More patchy opacities could be due to infection. No significant effusion. CT chest, abdomen and pelvis: Bilateral upper lobe patchy opacities concerning for infectious or inflammatory process. Mildly displaced right 10th and 11th rib fractures. No pneumothorax. No evidence of traumatic injury in the abdomen and pelvis. Right renal inferior pole hyperdense exophytic lesion is probably a hemorrhagic proteinaceous cyst. No urgent renal ultrasound can be obtained to further evaluate. Old-appearing T12 vertebral body compression fracture. EKG: Normal sinus rhythm. Voltage criteria for LVH. Abnormal EKG. IMPRESSION 1. Supratherapeutic international normalized ratio. 2. Hbavz-qn-pbnskef kidney disease. 3. Acute anemia. 4. Coronary artery disease status post 2-vessel coronary artery bypass graft in November of 2008. 5. Hypertension. 6. Hyperlipidemia. 7. History of deep vein thrombosis, on chronic anticoagulation. RECOMMENDATIONS: The patient has been administered vitamin K and FFP. Defer further treatment to Dr. Sow. Echocardiogram has been done; however, has not yet been uploaded for review. We will review the images once they are available. No evidence of myocardial infarction on serial cardiac biomarkers. Continue current cardiac medications. Management of ulcers per Wound Care. Obtain bilateral lower extremity arterial Doppler. We will need a bilateral lower extremity arterial Doppler if these wounds do not heal. Given her history of DVT, she likely has deep-system venous reflux and will need long-term compression stockings. Keep compression wrappings and keep the legs elevated. Further recommendations pending echocardiogram results. Thank you for this consult. We will continue to follow. Job#: [id number] EV SHOSHANA
--- NOTE | 2017-10-21 10:46 | Progress Note ---
DATE: October 21, 2017 CARDIOLOGY PROGRESS NOTE SUBJECTIVE: The patient denies chest pain or shortness of breath. OBJECTIVE VITALS: Temperature 99 degrees, pulse 76, respiratory rate 18, blood pressure 170/74, oxygen saturation 95% on 2 L nasal cannula. GENERAL: Elderly woman in no acute distress. LUNGS: Clear to auscultation bilaterally. No wheezes or crackles. CARDIOVASCULAR: Normal rate. Regular rhythm. No murmur. Normal S1 and S2. ABDOMEN: Soft and nontender. EXTREMITIES: Bilateral lower extremities with compressing wrappings. One plus pitting edema in dependent areas. Left upper extremity wrapped as well. CARDIAC MEDICATIONS 1. Carvedilol 12.5 mg p.o. b.i.d. 2. Simvastatin 10 mg p.o. at bedtime. LABS: WBC 4.16, hemoglobin 8.7, hematocrit 26.9, and platelets 109,000. Sodium 139, potassium 2.9, chloride 92, CO2 37, BUN 43, creatinine 1.9. Normal sinus rhythm. IMPRESSION 1. Supratherapeutic INR: Currently, therapeutic after vitamin K administration and fresh frozen plasma. 2. Jmfkx-kd-akgefyc kidney disease. 3. Acute anemia, currently stable. 4. Coronary artery disease: Status post 2-vessel coronary artery bypass graft in November of 2008. 5. Hypertension. 6. Hyperlipidemia. 7. History of deep venous thrombosis, on chronic anticoagulation. 8. Lower extremity wounds. 9. Status post fall with multiple skin tears and wounds. 10. Hyperkalemia, resolved. 11. Elevated brain natriuretic peptide. 12. Rheumatoid arthritis. RECOMMENDATIONS: Echocardiogram was technically difficulty, but LV systolic function appeared low normal with EF between 50% and 55%. There was impaired LV relaxation. Monitor volume status closely. Continue carvedilol and statin. Currently, on IV fluids given acute kidney injury. The patient will need to follow up in the office for bilateral lower extremity venous Doppler with insufficiency protocol given her history of DVT. Continue compression wrappings and keep extremities elevated. Blood pressure is labile, but for the most part acceptable for age. Monitor for now. Thank you for this consult. We will continue to follow. Job#: [id number] TONYA
[2017-10-21] MEDS ORDERED: POTASSIUM CHLORIDE 20 MEQ TAB CR PO SCH (12:00)
[2017-10-21] MEDS: PREDNISONE 5 MG/5 ML SOLN PO SCH (13:44)
[2017-10-21] MEDS: HYDROCODONE/APAP 5MG-325MG TAB PO PRN (14:29)
[2017-10-21] MEDS: SIMVASTATIN 20 MG TAB PO SCH (21:00)
[2017-10-21] MEDS: LABETALOL HCL 5 MG/ML 20ML VIAL IV PRN (21:27)
[2017-10-22] VITALS (9 sets, daily range): BP systolic 136–205; BP diastolic 63–90
[2017-10-22] MEDS: PIPER-TAZ 3.375 GM 50 ML IV SCH ×3 (05:51→21:19)
[2017-10-22 07:09] LABS: EOSINOPHILS # (AUTO) 0.2 (0.0-0.4); EOSINOPHILS % 9.1 % (0.0-6.0); HEMATOCRIT 28.1 % (34.2-44.1); LYMPHOCYTES # (AUTO) 0.3 (1.0-3.2); LYMPHOCYTES % 16.7 % (18.0-39.1); MEAN CORPUSCULAR HEMOGLOBIN 28.1 pg (28-32); MEAN CORPUSCULAR VOLUME 87.8 fL (81-99); MONOCYTES % 0.5 % (4.4-11.3); NEUTROPHILS # (AUTO) 1.5 (2.1-6.9); NEUTROPHILS % 73.2 % (38.7-80.0); PLATELET COUNT 101 x10e3/uL (140-360); RED CELL DISTRIBUTION WIDTH 19.3 % (11.7-14.4)
[2017-10-22 07:38] LABS: ANION GAP 11.8 mmol/L (8-16); CREATININE, SERUM 1.64 mg/dL (0.57-1.11); POTASSIUM 3.8 mmol/L (3.5-5.1)
[2017-10-22 07:44] LABS: MAGNESIUM 0.9 MG/DL (1.3-2.1)
[2017-10-22 08:24] LABS: ANISOCYTOSIS SLIGHT; EOSINOPHILS % (MANUAL) 11 % (0-7); LYMPHOCYTES % (MANUAL) 11 % (19-48); NEUTROPHILS % (MANUAL) 73 % (40-74); NUCLEATED RED BLOOD CELLS 1; PLATELET ESTIMATE SLIGHTLY DECREASED; PLATELET MORPHOLOGY COMMENT NORMAL
[2017-10-22 08:25] LABS: OVALOCYTES FEW; RBC MORPHOLOGY COMMENT NORMAL
[2017-10-22] MEDS: MIRABEGRON 25 MG PO SCH (09:00)
[2017-10-22] MEDS: BALSAM PERU/CASTOR OIL 60 GM OINT...G. TP SCH ×2 (09:43→16:06)
[2017-10-22] MEDS: CARVEDILOL 12.5 MG TAB PO SCH ×2 (09:43→16:06)
[2017-10-22] MEDS: PREDNISONE 5 MG/5 ML SOLN PO SCH (09:43)
[2017-10-22] MEDS: FOLIC ACID 1 MG TAB PO SCH (09:43)
[2017-10-22] MEDS: MAGNESIUM OXIDE 400 MG TAB PO SCH ×2 (09:43→16:06)
[2017-10-22] MEDS: DULOXETINE HCL 30 MG DELAYED RELEASE PO SCH (09:43)
[2017-10-22] MEDS: PANTOPRAZOLE SOD 40 MG TABEC PO SCH (09:43)
[2017-10-22] MEDS: SOLIFENACIN SUCCINATE 5 MG TAB PO SCH (09:43)
[2017-10-22] MEDS ORDERED: MAGNESIUM SULFATE 2GM/50ML 50 ML IV ONE (10:00)
[2017-10-22] MEDS: SPIRONOLACTONE 25 MG TAB PO SCH (10:36)
--- NOTE | 2017-10-22 12:30 | Progress Note ---
DATE: October 22, 2017 CARDIOLOGY PROGRESS NOTE SUBJECTIVE: Patient denies chest pain or shortness of breath. She was seen working with physical therapy. OBJECTIVE VITAL SIGNS: Temperature 99 degrees, pulse 82, respiratory rate 17, blood pressure 155/67, oxygen saturation 94% on 2 liters nasal cannula. GENERAL: Elderly woman in no acute distress, sitting up at bedside with physical therapy. LUNGS: Clear to auscultation bilaterally. No wheezes or crackles. CARDIOVASCULAR: Normal rate, regular rhythm. No murmur. Normal S1 and S2. ABDOMEN: Soft, nontender. EXTREMITIES: Bilateral lower extremities with compression wrappings, 1+ pitting edema in dependent areas. The left upper extremity is wrapped as well. CARDIAC MEDICATIONS 1. Spironolactone 25 mg p.o. daily. 2. Carvedilol 12.5 mg p.o. b.i.d. 3. Simvastatin 10 mg p.o. nightly. 4. Furosemide 40 mg p.o. b.i.d. LABS: WBC 11.98, hemoglobin 9, hematocrit 28.1, platelets 101. Sodium 134, potassium 3.8, chloride 97, CO2 29, BUN 35, creatinine 1.64. TELEMETRY: Normal sinus rhythm. IMPRESSION 1. Supratherapeutic international normalized ratio, status post vitamin K and fresh frozen plasma. 2. Wugpk-mq-rrpwidd kidney disease, improving. 3. Acute anemia, currently stable. 4. Coronary artery disease status post 2-vessel coronary artery bypass graft in November of 2008. 5. Hypertension. 6. Hyperlipidemia. 7. History of deep vein thrombosis on chronic anticoagulation. 8. Lower extremity wounds. 9. Status post fall with multiple skin tears and wounds. 10. Hyperkalemia, resolved. 11. Elevated Beta natriuretic peptide. 12. Rheumatoid arthritis. RECOMMENDATIONS: Echocardiogram was technically difficult, had low normal EF with impaired LV relaxation. Noted initiation of spironolactone and Lasix. Will monitor volume status closely. Titrate up carvedilol given uncontrolled blood pressure. Continue compression wrappings. Keep extremities elevated when seated. Thank you for this consult. We will continue to follow. Job#: [id number] EV MTDJohn
[2017-10-22] MEDS: FUROSEMIDE 40 MG TAB PO SCH (17:19)
[2017-10-22] MEDS: SIMVASTATIN 20 MG TAB PO SCH (21:00)
[2017-10-23] VITALS: BP 153/70
[2017-10-23] MEDS ORDERED: MAGNESIUM SULFATE 2GM/50ML 50 ML IV ONE (04:30)
[2017-10-23] MEDS: FUROSEMIDE 40 MG TAB PO SCH ×2 (05:35→17:16)
[2017-10-23 07:28] LABS: EOSINOPHILS # (AUTO) 0.2 (0.0-0.4); EOSINOPHILS % 9.7 % (0.0-6.0); HEMATOCRIT 27.9 % (34.2-44.1); HEMOGLOBIN 8.9 g/dL (12.0-16.0); LYMPHOCYTES # (AUTO) 0.4 (1.0-3.2); LYMPHOCYTES % 17.2 % (18.0-39.1); MEAN CORPUSCULAR HEMOGLOBIN 28.3 pg (28-32); MEAN CORPUSCULAR HGB CONC 31.9 g/dL (31-35); MEAN CORPUSCULAR VOLUME 88.6 fL (81-99); NEUTROPHILS # (AUTO) 1.6 (2.1-6.9); NEUTROPHILS % 72.2 % (38.7-80.0); RED BLOOD COUNT 3.15 x10e6/uL (3.6-5.1); RED CELL DISTRIBUTION WIDTH 19.5 % (11.7-14.4)
[2017-10-23 07:42] LABS: INR 2.33
[2017-10-23 07:54] LABS: ALBUMIN 1.7 g/dL (3.5-5.0); ALBUMIN/GLOBULIN RATIO 0.6 (0.8-2.0); ANION GAP 12.5 mmol/L (8-16); CREATININE, SERUM 1.91 mg/dL (0.57-1.11); MAGNESIUM 1.6 MG/DL (1.3-2.1); PHOSPHORUS 2.2 MG/DL (2.3-4.7); POTASSIUM 3.5 mmol/L (3.5-5.1)
[2017-10-23 08:00] VITALS: BP 154/67
[2017-10-23 08:42] LABS: BLAST CELLS % MANUAL 1; EOSINOPHILS % (MANUAL) 8 % (0-7); LYMPHOCYTES % (MANUAL) 16 % (19-48); MONOCYTES % (MANUAL) 1 % (3.4-9.0); NEUTROPHILS % (MANUAL) 71 % (40-74); RBC MORPHOLOGY COMMENT NORMAL
[2017-10-23 08:43] LABS: ANISOCYTOSIS SLIGHT; HYPOCHROMASIA SLIGHT; PLATELET ESTIMATE SLIGHTLY DECREASED; PLATELET MORPHOLOGY COMMENT NORMAL
[2017-10-23 08:51] LABS: PLATELET COUNT 83 x10e3/uL (140-360)
[2017-10-23] MEDS: MIRABEGRON 25 MG PO SCH (09:00)
[2017-10-23] MEDS: PANTOPRAZOLE SOD 40 MG TABEC PO SCH (09:45)
[2017-10-23] MEDS: CARVEDILOL 12.5 MG TAB PO SCH ×2 (09:45→17:00)
[2017-10-23] MEDS: SOLIFENACIN SUCCINATE 5 MG TAB PO SCH (09:45)
[2017-10-23] MEDS: DULOXETINE HCL 30 MG DELAYED RELEASE PO SCH (09:45)
[2017-10-23] MEDS: PREDNISONE 5 MG/5 ML SOLN PO SCH (09:45)
[2017-10-23] MEDS: FOLIC ACID 1 MG TAB PO SCH (09:45)
[2017-10-23] MEDS: SPIRONOLACTONE 25 MG TAB PO SCH (09:45)
[2017-10-23] MEDS: MAGNESIUM OXIDE 400 MG TAB PO SCH ×2 (09:45→17:16)
--- NOTE | 2017-10-23 11:47 | Progress Note ---
DATE: October 23, 2017 CARDIOLOGY PROGRESS NOTE SUBJECTIVE: Patient denies chest pain or shortness of breath. OBJECTIVE VITAL SIGNS: Temperature 96.1 degrees, pulse 80, respiratory rate 21, blood pressure 154/67, oxygen saturation 96% on 2 liters nasal cannula. GENERAL: Elderly woman in no acute distress. LUNGS: Clear to auscultation bilaterally. No wheezes or crackles. CARDIOVASCULAR: Normal rate, regular rhythm. No murmur. Normal S1 and S2. ABDOMEN: Soft, nontender. EXTREMITIES: Bilateral lower extremities with compression wrappings, 1+ pitting edema in dependent areas. The left upper extremity is wrapped. CARDIAC MEDICATIONS 1. Carvedilol 12.5 mg p.o. b.i.d. 2. Spironolactone 25 mg p.o. daily. 3. Furosemide 40 mg p.o. b.i.d. 4. Simvastatin 10 mg p.o. nightly. LABS: WBC 2.27, hemoglobin 8.9, hematocrit 27.9, platelets 83. Sodium 134, potassium 3.5, chloride 97, CO2 28, BUN 35, creatinine 1.91. INR 2.33. TELEMETRY: Normal sinus rhythm. IMPRESSION 1. Supratherapeutic international normalized ratio, status post vitamin K and fresh frozen plasma, currently still therapeutic. 2. Tgvtm-bq-zizznes kidney disease, improving. 3. Acute anemia, currently stable. 4. Coronary artery disease status post 2-vessel coronary artery bypass graft in November of 2008. 5. Hypertension. 6. Hyperlipidemia. 7. History of deep vein thrombosis on chronic anticoagulation. 8. Lower extremity wounds status post falls with multiple skin tears and wounds. 9. Hyperkalemia, resolved. 10. Elevated beta natriuretic peptide. 11. Rheumatoid arthritis. RECOMMENDATIONS: Echocardiogram was technically difficult, but ejection fraction was low normal with impaired LV relaxation. Monitor volume status closely. The patient's blood pressure is borderline for her age. If it remains elevated, we will add additional antihypertensive therapies, likely low-dose nifedipine. Continue compression wrappings. Keep legs elevated when seated. Thank you for this consult. We will continue to follow. Job#: [id number]
[2017-10-23 12:01] VITALS: BP 166/72
[2017-10-23 12:17] VITALS: BP 154/67
[2017-10-23] MEDS: BALSAM PERU/CASTOR OIL 60 GM OINT...G. TP SCH ×2 (14:30→15:27)
[2017-10-23] MEDS ORDERED: POTASSIUM CHLORIDE 20 MEQ TAB CR PO ONE (15:40)
[2017-10-23 16:00] VITALS: BP 161/70
[2017-10-23 20:00] VITALS: BP 142/65
[2017-10-23] MEDS: SIMVASTATIN 20 MG TAB PO SCH (20:15)
[2017-10-24] VITALS (7 sets, daily range): BP systolic 133–156; BP diastolic 60–71
[2017-10-24] MEDS: FUROSEMIDE 40 MG TAB PO SCH ×2 (05:51→17:59)
[2017-10-24 06:50] LABS: HEMATOCRIT 28.7 % (34.2-44.1); HEMOGLOBIN 9.3 g/dL (12.0-16.0); MEAN CORPUSCULAR HGB CONC 32.4 g/dL (31-35); MEAN CORPUSCULAR VOLUME 86.4 fL (81-99); PLATELET COUNT 61 x10e3/uL (140-360); RED BLOOD COUNT 3.32 x10e6/uL (3.6-5.1); RED CELL DISTRIBUTION WIDTH 19.1 % (11.7-14.4)
[2017-10-24 07:19] LABS: ALBUMIN 1.8 g/dL (3.5-5.0); ALBUMIN/GLOBULIN RATIO 0.6 (0.8-2.0); ANION GAP 14.3 mmol/L (8-16); CALCIUM 9.4 mg/dL (8.4-10.2); CREATININE, SERUM 1.65 mg/dL (0.57-1.11); POTASSIUM 4.3 mmol/L (3.5-5.1)
[2017-10-24] MEDS: MIRABEGRON 25 MG PO SCH (09:00)
[2017-10-24] MEDS: MAGNESIUM OXIDE 400 MG TAB PO SCH ×2 (09:30→16:20)
[2017-10-24] MEDS: CARVEDILOL 12.5 MG TAB PO SCH ×2 (09:30→16:20)
[2017-10-24] MEDS: DULOXETINE HCL 30 MG DELAYED RELEASE PO SCH (09:30)
[2017-10-24] MEDS: PANTOPRAZOLE SOD 40 MG TABEC PO SCH (09:30)
[2017-10-24] MEDS: SOLIFENACIN SUCCINATE 5 MG TAB PO SCH (09:30)
[2017-10-24] MEDS: SPIRONOLACTONE 25 MG TAB PO SCH (09:30)
[2017-10-24] MEDS: PREDNISONE 5 MG/5 ML SOLN PO SCH (09:30)
[2017-10-24] MEDS: FOLIC ACID 1 MG TAB PO SCH (09:30)
[2017-10-24] MEDS: BALSAM PERU/CASTOR OIL 60 GM OINT...G. TP SCH ×2 (11:55→16:20)
--- NOTE | 2017-10-24 15:28 | Progress Note ---
DATE: October 24, 2017 CARDIOLOGY PROGRESS NOTE SUBJECTIVE: The patient denies chest pain or shortness of breath. OBJECTIVE VITALS: Temperature 97 degrees, pulse 80, respiratory rate 22, blood pressure 134/60, and oxygen saturation 95% on 2 L nasal cannula. GENERAL: Elderly woman in no acute distress. LUNGS: Clear to auscultation bilaterally. No wheezes or crackles. CARDIOVASCULAR: Normal rate. Regular rhythm. No murmur. Normal S1 and S2. ABDOMEN: Soft and nontender. EXTREMITIES: Bilateral lower extremities in compression wrapping. One plus pitting edema in dependent areas. The left upper extremity is wrapped. CARDIAC MEDICATIONS 1. Carvedilol 25 mg p.o. b.i.d. 2. Spironolactone 25 mg p.o. daily. 3. Furosemide 40 mg p.o. b.i.d. 4. Simvastatin 10 mg p.o. at bedtime. LABS: WBC 2.44, hemoglobin 9.3, hematocrit 28.7, and platelets 61,000. Sodium 134, potassium 4.3, chloride 99, CO2 25, BUN 31, creatinine 1.65. Telemetry is normal sinus rhythm. IMPRESSION 1. Supratherapeutic INR, status post vitamin K and fresh frozen plasma. 2. Ydkfm-uu-vpcagje kidney disease, improving. 3. Acute anemia, currently stable. 4. Coronary artery disease, status post 2-vessel coronary artery bypass graft in November of 2008. 5. Hypertension. 6. Hyperlipidemia. 7. History of deep venous thrombosis, on chronic anticoagulation. 8. Left lower extremity wound, status post fall with multiple skin tears and wounds. 9. Hyperkalemia, resolved. 10. Elevated brain natriuretic peptide. 11. Rheumatoid arthritis. RECOMMENDATIONS: Echocardiogram was technically difficult, but demonstrated low normal LVEF with impaired LV relaxation. Monitor volume status closely. The patient is on gentle diuretics. We will continue to monitor volume status. Continue compression wrappings. Keep legs elevated. Blood pressure is borderline for age. Continue to monitor. Thank you for this consult. We will continue to follow. Job#: [id number] TONYA
[2017-10-24] MEDS: HYDROCODONE/APAP 5MG-325MG TAB PO PRN ×2 (16:20→23:35)
[2017-10-24] MEDS: SIMVASTATIN 20 MG TAB PO SCH (20:16)
[2017-10-25] VITALS (7 sets, daily range): BP systolic 114–183; BP diastolic 57–84
[2017-10-25] MEDS: FUROSEMIDE 40 MG TAB PO SCH ×2 (06:16→18:00)
[2017-10-25 07:06] LABS: HEMATOCRIT 28.6 % (34.2-44.1); HEMOGLOBIN 9.4 g/dL (12.0-16.0); MEAN CORPUSCULAR HEMOGLOBIN 28.1 pg (28-32); MEAN CORPUSCULAR HGB CONC 32.9 g/dL (31-35); MEAN CORPUSCULAR VOLUME 85.6 fL (81-99); PLATELET COUNT 55 x10e3/uL (140-360); RED BLOOD COUNT 3.34 x10e6/uL (3.6-5.1); RED CELL DISTRIBUTION WIDTH 18.7 % (11.7-14.4)
[2017-10-25 07:28] LABS: ALBUMIN 1.9 g/dL (3.5-5.0); ALBUMIN/GLOBULIN RATIO 0.6 (0.8-2.0); ANION GAP 12.8 mmol/L (8-16); CALCIUM 9.4 mg/dL (8.4-10.2); CREATININE, SERUM 1.7 mg/dL (0.57-1.11); POTASSIUM 3.8 mmol/L (3.5-5.1)
[2017-10-25 08:27] LABS: EOSINOPHILS % (MANUAL) 21 % (0-7); LYMPHOCYTES % (MANUAL) 23 % (19-48); NEUTROPHILS % (MANUAL) 56 % (40-74); PLATELET ESTIMATE MARKEDLY DECREASED; PLATELET MORPHOLOGY COMMENT FEW LARGE; RBC MORPHOLOGY COMMENT NORMAL
[2017-10-25 08:39] LABS: INR 1.69; PROTHROMBIN TIME 18.7 seconds (11.9-14.5)
[2017-10-25 08:40] LABS: PARTIAL THROMBOPLASTIN TIME 47.4 seconds (23.8-35.5)
[2017-10-25] MEDS: MIRABEGRON 25 MG PO SCH (09:00)
[2017-10-25] MEDS: SPIRONOLACTONE 25 MG TAB PO SCH (09:54)
[2017-10-25] MEDS: SOLIFENACIN SUCCINATE 5 MG TAB PO SCH (09:55)
[2017-10-25] MEDS: PANTOPRAZOLE SOD 40 MG TABEC PO SCH (09:55)
[2017-10-25] MEDS: FOLIC ACID 1 MG TAB PO SCH (09:55)
[2017-10-25] MEDS: PREDNISONE 5 MG/5 ML SOLN PO SCH (09:55)
[2017-10-25] MEDS: BALSAM PERU/CASTOR OIL 60 GM OINT...G. TP SCH ×2 (09:55→18:03)
[2017-10-25] MEDS: CARVEDILOL 12.5 MG TAB PO SCH ×2 (09:55→17:00)
[2017-10-25] MEDS: DULOXETINE HCL 30 MG DELAYED RELEASE PO SCH (09:55)
[2017-10-25] MEDS: MAGNESIUM OXIDE 400 MG TAB PO SCH ×2 (09:55→17:00)
[2017-10-25] MEDS ORDERED: FILGRASTIM 480 MCG/0.8 ML VIAL SC ONE (11:30)
--- NOTE | 2017-10-25 14:17 | Progress Note ---
DATE: October 25, 2017 CARDIOLOGY PROGRESS NOTE SUBJECTIVE: The patient is confused. She thinks she is at her mother's house and the year is 1979. OBJECTIVE VITALS: Temperature 96.9 degrees, pulse 71, respiratory rate 18, blood pressure 158/72, oxygen saturation 96% on nasal cannula. GENERAL: Elderly woman in no acute distress. Confused. LUNGS: Clear to auscultation bilaterally. No wheezes or crackles. CARDIOVASCULAR: Normal rate. Regular rhythm. No murmur. Normal S1 and S2. ABDOMEN: Soft and nontender. EXTREMITIES: Bilateral lower extremities with compression wrappings. There is 1+ pitting edema in dependent areas. The left upper extremity has wrapping as well. Ecchymoses are noted across the body. CARDIAC MEDICATIONS 1. Carvedilol 25 mg p.o. b.i.d. 2. Spironolactone 25 mg p.o. daily. 3. Lasix 40 mg p.o. b.i.d. 4. Simvastatin 10 mg p.o. at bedtime. LABS: WBC 1.17, hemoglobin 9.4, hematocrit 28.6, and platelets 55,000. Sodium 128, potassium 3.8, chloride 93, CO2 26, BUN 35, creatinine 1.7. TELEMETRY: Normal sinus rhythm. IMPRESSION 1. Supratherapeutic international normalization ratio, status post vitamin K and fresh frozen plasma, now subtherapeutic. 2. Ysdow-iq-namvsgt kidney disease. 3. Acute anemia, currently stable. 4. Coronary artery disease, status post 2-vessel coronary artery bypass graft in November 2008. 5. Hypertension. 6. Hyperlipidemia. 7. History of deep venous thrombosis on chronic anticoagulation. 8. Left lower extremity wound, status post fall with multiple skin tears and wounds. 9. Hyperkalemia, resolved. 10. Hyponatremia. 11. Elevated brain natriuretic peptide. 12. Rheumatoid arthritis. 13. Altered mental status. RECOMMENDATIONS: Echocardiogram was technically difficult but demonstrated normal LVEF with impaired LV relaxation. The patient is diuresing well. Plan to continue. Continue compression wrappings. Keep legs elevated. Will obtain a CT of the head given the patient's change in mental status. Further evaluation is per primary. The patient's blood pressure is borderline for age. May need to add additional antihypertensive agents. Would prefer an MINA or ARB; however, her renal function precludes this. If her renal function stabilizes, plan to add at that time. Thank you for this consult. We will continue to follow. Job#: [id number] ROJELIO
[2017-10-25] MEDS: CLOTRIMAZOLE 1% CR 15 GM TOP SCH (18:03)
--- NOTE | 2017-10-25 21:09 | Diagnostic Imaging Report ---
History:Altered mental status Comparison studies:CT brain from 10/18/2017. Technique: Axial images were obtained from the skull base to the vertex. Coronal and sagittal images reconstructed from the axial data. Intravenous contrast: None Findings: Suboptimal evaluation due to motion-related streak artifacts. Scalp/skull: No abnormalities. Extra-axial spaces: No masses. No fluid collections. Brain sulci: Mildly prominent. Ventricles: Mild compensatory dilatation. No hydrocephalus. 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 Chronic encephalomalacia in left parietal lobe and right middle frontal gyrus from prior vascular insult. 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 Scattered hypodensities in the supratentorial white matter are small vessel ischemic changes. No acute intracranial hemorrhage, mass or acute major vascular territorial infarct. Sellar/suprasellar region: No abnormalities. Craniocervical junction: Patent foramen magnum. No Chiari one malformation. Incidental findings: Severe atherosclerotic calcifications in the carotid siphons and distal vertebral arteries. Near complete opacification of the left sphenoid sinus. Impression: No acute abnormalities. No change since CT head from 10/18/2017. Persistent findings: 1. 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 2. Multifocal chronic encephalomalacia as detailed above. 3. Mild supratentorial white matter microvascular ischemic changes. A preliminary report was given by neuroradiology fellow Dr. Narvaez and at 4:56 PM on 10/25/2017. I have reviewed the images and agree with the findings in the preliminary report. Signed by: Dr. Minerva Alcocer M.D. on 10/25/2017 9:02 PM
[2017-10-25] MEDS: SIMVASTATIN 20 MG TAB PO SCH (21:31)
[2017-10-26] VITALS (8 sets, daily range): BP systolic 124–165; BP diastolic 63–79
[2017-10-26] MEDS: LABETALOL HCL 5 MG/ML 20ML VIAL IV PRN ×2 (01:10→05:10)
[2017-10-26] MEDS: FUROSEMIDE 40 MG TAB PO SCH ×2 (05:24→18:00)
[2017-10-26 08:03] LABS: HEMATOCRIT 30.7 % (34.2-44.1); HEMOGLOBIN 10.1 g/dL (12.0-16.0); MEAN CORPUSCULAR HEMOGLOBIN 28.1 pg (28-32); MEAN CORPUSCULAR HGB CONC 32.9 g/dL (31-35); MEAN CORPUSCULAR VOLUME 85.3 fL (81-99); RED CELL DISTRIBUTION WIDTH 18.9 % (11.7-14.4)
[2017-10-26 08:16] LABS: PLATELET COUNT 41 x10e3/uL (140-360)
[2017-10-26 08:32] LABS: ALBUMIN 1.9 g/dL (3.5-5.0); ALBUMIN/GLOBULIN RATIO 0.5 (0.8-2.0); ANION GAP 16.7 mmol/L (8-16); CALCIUM 9.8 mg/dL (8.4-10.2); CREATININE, SERUM 1.53 mg/dL (0.57-1.11); POTASSIUM 3.7 mmol/L (3.5-5.1)
[2017-10-26] MEDS: PANTOPRAZOLE SOD 40 MG TABEC PO SCH (09:00)
[2017-10-26] MEDS: SPIRONOLACTONE 25 MG TAB PO SCH (09:00)
[2017-10-26] MEDS: DULOXETINE HCL 30 MG DELAYED RELEASE PO SCH (09:00)
[2017-10-26] MEDS: MIRABEGRON 25 MG PO SCH (09:00)
[2017-10-26] MEDS: BALSAM PERU/CASTOR OIL 60 GM OINT...G. TP SCH ×2 (09:00→17:00)
[2017-10-26] MEDS: SOLIFENACIN SUCCINATE 5 MG TAB PO SCH (09:00)
[2017-10-26] MEDS: CLOTRIMAZOLE 1% CR 15 GM TOP SCH ×2 (09:00→17:00)
[2017-10-26] MEDS: MAGNESIUM OXIDE 400 MG TAB PO SCH ×2 (09:00→17:00)
[2017-10-26] MEDS: FOLIC ACID 1 MG TAB PO SCH (09:00)
[2017-10-26 10:41] LABS: EOSINOPHILS % (MANUAL) 24 % (0-7); HYPOCHROMASIA SLIGHT; LYMPHOCYTES % (MANUAL) 24 % (19-48); NEUTROPHILS % (MANUAL) 50 % (40-74); PLATELET ESTIMATE MARKEDLY DECREASED; PLATELET MORPHOLOGY COMMENT NORMAL; RBC MORPHOLOGY COMMENT NORMAL
--- NOTE | 2017-10-26 11:24 | Progress Note ---
DATE: CARDIOLOGY PROGRESS NOTE SUBJECTIVE: The patient states she has no complains. Denies any shortness of breath or palpitations or chest pain. OBJECTIVE: VITAL SIGNS: Temperature 98.5, pulse 103, respiratory rate 20, blood pressure 145/79, oxygen saturation 94% on 2 liters nasal cannula. GENERAL: Alert and oriented times 2, resting comfortably in bed. Does not appear to be in any acute distress. LUNGS: Diminished breath sounds throughout. No wheezing. No rhonchi or crackles. CARDIOVASCULAR: Regular rate and rhythm. Tachycardic. No murmurs. Normal S1, S2. ABDOMEN: Soft, nontender. EXTREMITIES: Bilateral lower extremity with compression wraps. Ecchymosis noted all across the body. CARDIOVASCULAR MEDICATIONS 1. Carvedilol 25 mg p.o. b.i.d. 2. Spironolactone 25 mg p.o. daily. 3. Simvastatin 10 mg p.o. at bedtime. 4. Labetalol 20 mg q.4 hours p.r.n. for hypertension. 5. Furosemide 40 mg p.o. b.i.d. LABORATORY DATA: WBC 0.54, hemoglobin 10.1, hematocrit 30.7, platelet 41. Sodium 131, potassium 3.7, BUN 34, creatinine 1.53, GFR 32, alkaline phosphatase 126, ALT 27, ALT 19. CT of the brain from yesterday with age-indeterminate lacunar infarct of the right frontal centrum semiovale, multifocal chronic encephalomalacia, and mild supratentorial white matter microvascular ischemic changes. Telemetry, sinus tachycardia. IMPRESSION 1. Supratherapeutic INR, status post vitamin K and fresh frozen plasma, now subtherapeutic. 2. Hpcnz-lo-gxudjee kidney disease. 3. Acute anemia, currently stable. 4. Thrombocytopenia. 5. Coronary artery disease, status post 2-vessel coronary artery bypass graft in 2008. 6. Hypertension. 7. Hyperlipidemia. 8. History of deep venous thrombosis, on chronic anticoagulation. 9. Lower extremity wound, status post fall with multiple skin tears and wounds. 10. Hyperkalemia, resolved. 11. Hyponatremia. 12. Elevated brain natriuretic peptide. 13. Rheumatoid arthritis. 14. Altered mental status changes. RECOMMENDATION: Recent echocardiogram revealed normal left ventricular ejection fraction with impaired left ventricular relaxation. Patient is currently on diuresis. Continue the above listed cardiac medication. Up-titrate beta-juan alberto today. Continue leg wrapping and keep legs elevated. CT of the head with chronic ischemic changes. Continue to monitor renal function closely. Dictated By: Meron Bhardwaj NP Job#: [id number] VAS
[2017-10-26] MEDS ORDERED: SODIUM CHLORIDE 0.9% 1000ML 1,000 ML ONE (16:19)
[2017-10-26] MEDS: CARVEDILOL 12.5 MG TAB PO SCH (17:00)
[2017-10-26] MEDS ORDERED: FILGRASTIM 300 MCG/ML VIAL SC ONE (18:30)
[2017-10-26] MEDS: SIMVASTATIN 20 MG TAB PO SCH (20:23)
[2017-10-27] VITALS: BP_SYST 156; BP_SYST 177; BP_DIAS 68; BP_DIAS 72
[2017-10-27 04:00] VITALS: BP 114/64
[2017-10-27 07:26] LABS: EOSINOPHILS # (AUTO) 0.1 (0.0-0.4); EOSINOPHILS % 24.4 % (0.0-6.0); HEMATOCRIT 30.4 % (34.2-44.1); HEMOGLOBIN 9.8 g/dL (12.0-16.0); LYMPHOCYTES # (AUTO) 0.2 (1.0-3.2); LYMPHOCYTES % 51.1 % (18.0-39.1); MEAN CORPUSCULAR HEMOGLOBIN 27.8 pg (28-32); MEAN CORPUSCULAR HGB CONC 32.2 g/dL (31-35); MEAN CORPUSCULAR VOLUME 86.1 fL (81-99); MONOCYTES # (AUTO) 0.1 (0.2-0.8); MONOCYTES % 13.3 % (4.4-11.3); NEUTROPHILS # (AUTO) 0.1 (2.1-6.9); NEUTROPHILS % 11.2 % (38.7-80.0); RED BLOOD COUNT 3.53 x10e6/uL (3.6-5.1); RED CELL DISTRIBUTION WIDTH 19.2 % (11.7-14.4)
[2017-10-27 07:30] LABS: PLATELET COUNT 23 x10e3/uL (140-360)
[2017-10-27] MEDS: FUROSEMIDE 40 MG TAB PO SCH ×2 (07:35→17:54)
[2017-10-27] MEDS: SODIUM CHLORIDE 0.9% 1000ML 1,000 ML IV SCH (07:45)
[2017-10-27 07:47] VITALS: BP 138/58
[2017-10-27] MEDS: CARVEDILOL 12.5 MG TAB PO SCH ×3 (08:00→16:54)
[2017-10-27 08:02] LABS: ALBUMIN 1.8 g/dL (3.5-5.0); ALBUMIN/GLOBULIN RATIO 0.5 (0.8-2.0); ANION GAP 18.9 mmol/L (8-16); CALCIUM 9.4 mg/dL (8.4-10.2); CREATININE, SERUM 1.9 mg/dL (0.57-1.11); POTASSIUM 3.9 mmol/L (3.5-5.1)
[2017-10-27] MEDS: CLOTRIMAZOLE 1% CR 15 GM TOP SCH ×2 (09:00→16:55)
[2017-10-27] MEDS: DULOXETINE HCL 30 MG DELAYED RELEASE PO SCH (09:00)
[2017-10-27] MEDS: PANTOPRAZOLE SOD 40 MG TABEC PO SCH (09:00)
[2017-10-27] MEDS: MAGNESIUM OXIDE 400 MG TAB PO SCH ×2 (09:00→16:55)
[2017-10-27] MEDS: SPIRONOLACTONE 25 MG TAB PO SCH (09:00)
[2017-10-27] MEDS: FOLIC ACID 1 MG TAB PO SCH (09:00)
[2017-10-27] MEDS: MIRABEGRON 25 MG PO SCH (09:00)
[2017-10-27] MEDS: BALSAM PERU/CASTOR OIL 60 GM OINT...G. TP SCH ×2 (09:00→16:55)
[2017-10-27 10:26] LABS: BAND NEUTROPHILS % (MANUAL) 1 %; BLAST CELLS % MANUAL 3; EOSINOPHILS % (MANUAL) 14 % (0-7); LYMPHOCYTES % (MANUAL) 69 % (19-48); NEUTROPHILS % (MANUAL) 13 % (40-74)
[2017-10-27 10:27] LABS: PLATELET ESTIMATE MARKEDLY DECREASED; PLATELET MORPHOLOGY COMMENT NORMAL; RBC MORPHOLOGY COMMENT NORMAL
[2017-10-27 12:06] VITALS: BP 126/58
--- NOTE | 2017-10-27 12:16 | Progress Note ---
DATE: CARDIOLOGY PROGRESS NOTE SUBJECTIVE: Patient is without any complaints. She states she is just tired; however, she is disoriented this morning and confused. CARDIOVASCULAR MEDICATIONS 1. Furosemide 40 mg p.o. b.i.d. 2. Simvastatin 10 mg p.o. h.s. 3. Coreg 25 mg p.o. t.i.d. 4. Spironolactone 25 mg p.o. daily. 5. Labetalol 20 mg q.4 hours p.r.n. IV. OBJECTIVE VITAL SIGNS: Temperature 97.5, pulse 97, respiratory rate 20, blood pressure 138/58, oxygen saturation 90% on 2 liters nasal cannula. GENERAL: Alert and oriented x1, resting comfortably in bed. Does not appear to be in any acute distress. LUNGS: Diminished breath sounds throughout. No wheezing. No rhonchi or crackles. CARDIOVASCULAR: Regular rate and rhythm. No murmurs. S1 and S2 normal. ABDOMEN: Rounded, soft, and nontender. EXTREMITIES: Bilateral lower extremities with compression wraps. Ecchymosis noted all throughout the body. LABS: WBC 0.45, hemoglobin 9.8, hematocrit 30.4, and platelets 23. Sodium 134, potassium 3.9, BUN 46, creatinine 1.90, glucose 123. AST 14 and ALT 20. IMPRESSION 1. Supratherapeutic INR, status post vitamin K and fresh frozen plasma, now subtherapeutic. 2. Pkvau-dm-yvxckjb kidney disease. 3. Acute anemia, currently stable. 4. Thrombocytopenia. 5. Coronary artery disease, status post 2-vessel coronary artery bypass graft in 2008. 6. Hypertension. 7. Hyperlipidemia. 8. History of deep venous thrombosis, on chronic anticoagulation. 9. Lower extremity wounds, status post falls with multiple skin tears and wounds. 10. Electrolyte imbalance. 11. Elevated BNP. 12. Rheumatoid arthritis. 13. Altered mental status and changes. RECOMMENDATIONS: Recent echocardiogram with normal left ventricular ejection fraction and impaired left ventricular relaxation. Patient is currently on diuresis. Continue the current dose of medications. Continue the rest of the above listed cardiac medications. Monitor closely. Monitor renal function. Thank you. We will continue to follow. Dictated By: Meron Bhardwaj NP Job#: [id number]
[2017-10-27 16:24] VITALS: BP 119/55
[2017-10-27 20:00] VITALS: BP 130/58
[2017-10-27] MEDS: SIMVASTATIN 20 MG TAB PO SCH (21:00)
[2017-10-28] VITALS (28 sets, daily range): BP systolic 84–153; BP diastolic 49–78
[2017-10-28] MEDS: SODIUM CHLORIDE 0.9% 1000ML 1,000 ML IV SCH ×2 (05:46→13:41)
[2017-10-28 07:52] LABS: HEMATOCRIT 25.4 % (34.2-44.1); HEMOGLOBIN 8.2 g/dL (12.0-16.0); MEAN CORPUSCULAR HGB CONC 32.3 g/dL (31-35); MEAN CORPUSCULAR VOLUME 86.7 fL (81-99); RED BLOOD COUNT 2.93 x10e6/uL (3.6-5.1); RED CELL DISTRIBUTION WIDTH 19.2 % (11.7-14.4)
[2017-10-28] MEDS: CARVEDILOL 12.5 MG TAB PO SCH ×3 (08:00→16:30)
[2017-10-28 08:02] LABS: PLATELET COUNT 29 x10e3/uL (140-360)
[2017-10-28 08:14] LABS: ALBUMIN 1.5 g/dL (3.5-5.0); ALBUMIN/GLOBULIN RATIO 0.5 (0.8-2.0); ANION GAP 14.8 mmol/L (8-16); CALCIUM 8.8 mg/dL (8.4-10.2); CREATININE, SERUM 1.77 mg/dL (0.57-1.11); POTASSIUM 3.8 mmol/L (3.5-5.1)
[2017-10-28 08:47] LABS: PLATELET ESTIMATE MODERATELY DECREASED; RBC MORPHOLOGY COMMENT NORMAL
[2017-10-28 08:48] LABS: ANISOCYTOSIS SLIG; PLATELET MORPHOLOGY COMMENT FEW LARGE
[2017-10-28 08:49] LABS: HYPOCHROMASIA SLIGHT; POIKILOCYTOSIS SLIG
[2017-10-28] MEDS: PANTOPRAZOLE SOD 40 MG TABEC PO SCH (09:00)
[2017-10-28] MEDS: FOLIC ACID 1 MG TAB PO SCH (09:00)
[2017-10-28] MEDS: MAGNESIUM OXIDE 400 MG TAB PO SCH ×2 (09:00→16:30)
[2017-10-28] MEDS ORDERED: MAGNESIUM SULFATE 2GM/50ML 50 ML IV ONE (09:15)
[2017-10-28] MEDS: FILGRASTIM 480 MCG/0.8 ML VIAL SC SCH (10:30)
[2017-10-28] MEDS: BALSAM PERU/CASTOR OIL 60 GM OINT...G. TP SCH ×2 (10:30→16:30)
--- NOTE | 2017-10-28 11:20 | Diagnostic Imaging Report ---
Examination: CT BRAIN WITHOUT CONTRAST History:Confusion. Weakness. Comparison studies:Head CT performed October 25, 2017. Technique: Axial images were obtained from the skull base to the vertex. Coronal and sagittal images reconstructed from the axial data. Intravenous contrast: None Findings: Scalp: No abnormalities. Bones: No fractures, blastic or lytic lesions. Brain sulci: Mild volume loss for age. Ventricles: No hydrocephalus. Extra-axial space: No abnormalities. Parenchyma: Again demonstrated are patchy areas of hypoattenuation in the periventricular and subcortical and pontine white matter, nonspecific. Chronic cortical based infarct is again demonstrated in the right middle and inferior temporal gyri with ex vacuo dilatation of the atrium of the right lateral ventricle. Chronic lacunar infarct is again demonstrated in the right frontal centrum semiovale. No masses, hemorrhage, or acute cortical based vascular insults. Sellar/suprasellar region: No abnormalities. Craniocervical junction: Patent foramen magnum. No Chiari one malformation. Incidental findings: Atherosclerotic calcification of the cavernous and supraclinoid internal carotid and V4 segments of the bilateral vertebral arteries. Moderate circumferential inflammatory mucosal thickening of the left sphenoid sinus with involvement of the aerated lateral recess. Bilateral slitlike orbital lenses. Impression: 1. No new or acute intracranial abnormality. No change from prior head CT performed October 25, 2017. 2. 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 3. Unchanged mild chronic microvascular ischemic change and volume loss. Signed by: Dr. Aliyah Javed M.D. on 10/28/2017 11:16 AM
[2017-10-28] MEDS: CLOTRIMAZOLE 1% CR 15 GM TOP SCH ×2 (13:41→16:30)
--- NOTE | 2017-10-28 16:36 | Diagnostic Imaging Report ---
PROCEDURE: A single AP view of the chest. COMPARISON: Chest x-ray 10/19/2017. INDICATIONS: RESPIRATORY DISTRESS FINDINGS: Lines/tubes: Median sternotomy wires are present. Lungs: Lungs are hypoinflated. Continued worsening in lung aeration. Significant worsening of diffuse interstitial and airspace opacities. Pleura: There is no pleural effusion or pneumothorax. Heart and mediastinum: The heart and the mediastinum are unremarkable. Atherosclerotic calcifications of the aorta. Bones: No acute bony abnormality. Right humeral arthroplasty. Moderate severe degenerative changes in the left glenohumeral joint. IMPRESSION: Worsening diffuse airspace opacities in bilateral lungs, possibly multifocal pneumonia versus pulmonary edema. Dictated by: Dhaval Long M.D. on 10/28/2017 at 16:36 Electronically approved by: Dhaval Long M.D. on 10/28/2017 at 16:36
[2017-10-28] MEDS ORDERED: BUMETANIDE INJ 0.25MG/ML 4ML VIAL IV STA (16:47)
[2017-10-28 16:48] LABS: ABG HCO3 21 mmol/L (23-28); ABG PCO2 29 mmHg (41-51); ABG PH 7.46 (7.31-7.41); ABG PO2 47 mmHg (80-105)
[2017-10-28] MEDS: MEROPENEM 500 MG VIAL IV SCH (19:35)
[2017-10-28] MEDS: BUMETANIDE 10 MG in SODIUM CHLORIDE 0.9% 100 ML 60 ML IV SCH (20:02)
[2017-10-28] MEDS: SIMVASTATIN 20 MG TAB PO SCH (21:00)
[2017-10-28] MEDS ORDERED: PIPER-TAZ 3.375 GM 50 ML IV SCH (22:00)
[2017-10-28] MEDS ORDERED: MEROPENEM 500MG 500 MG in SODIUM CHLORIDE 0.9% 50ML 50 ML IV SCH (22:00)
[2017-10-28 22:03] LABS: ABG PH 7.5 (7.31-7.41)
[2017-10-29] VITALS (73 sets, daily range): BP systolic 75–129; BP diastolic 38–69
--- NOTE | 2017-10-29 00:50 | Consultation ---
DATE OF CONSULTATION: October 28, 2017 PULMONARY CONSULTATION Patient of Dr. Larson. Unfortunate 87-year-old woman admitted with elevated pro-time and renal failure on October 18. She has had progressive pancytopenia. She, apparently, did receive 1 dose of methotrexate. Her pro-time has improved. She remains . She was confused this morning and found to be hypoxic. She has a history for DVT in the past, rheumatoid arthritis. She has had coronary bypass surgery in the past, total knee replacements, shoulder replacement surgery. ALLERGIES: SHE IS ALLERGIC TO MORPHINE. HOME MEDICATIONS: Warfarin, potassium citrate, Coreg, Cymbalta, folic acid, hydrochlorothiazide, Vicodin, irbesartan, methotrexate, Myrbetriq, Prilosec, prednisone, ramipril, Crestor, and . Nonsmoker. It is difficult for her to relay her history because of her . EXAM HEAD: Normocephalic, atraumatic. SKIN: There is bruising in the extremities and right lower extremity. LUNGS: Bilateral rales. HEART: Regular rhythm. ABDOMEN: Nontender. EXTREMITIES: Not edematous. IMPRESSIONS 1. Hospital-acquired pneumonia. 2. Pancytopenia. 3. Elderly frail patient. Patient's outlook is extremely poor at this time. Will add meropenem for broad-spectrum antibiotic for hospital acquired pneumonia, pancytopenia. Patient initially declined intubation, but now she has agreed intubation if there is no other choice. She wish to defer this as long as possible. Case discussed with Dr. Sow and Dr. Larson. Prognosis is extremely poor. Thank you for this kind referral. Job#: [id number] CQ
--- NOTE | 2017-10-29 01:07 | Progress Note ---
DATE: October 28, 2017 CARDIOLOGY PROGRESS NOTE SUBJECTIVE: The patient denies chest pain. However, she is confused and tachypneic, pulling off her face mask. OBJECTIVE VITALS: Temperature 100.4 degrees, pulse 99, respiratory rate 16, blood pressure 131/63, and oxygen saturation 86% on 15 L nasal cannula. GENERAL: Elderly woman, tachypneic, confused. LUNGS: Diminished breath sounds. No wheezes or crackles. CARDIOVASCULAR: Normal rate. Regular rhythm. No murmur. Normal S1 and S2. ABDOMEN: Soft and nontender. EXTREMITIES: Compression wrappings noted with scattered ecchymosis. There is 1+ pitting edema in dependent areas. CARDIAC MEDICATIONS 1. Bumex drip at 1 mg an hour. 2. Carvedilol 25 mg p.o. t.i.d. 3. Simvastatin 10 mg p.o. nightly. LABS: WBC 0.48, hemoglobin 8.2, hematocrit 25.4, and platelets 29,000. Sodium 133, potassium 3.8, chloride 98, CO2 of 24, BUN 50, and creatinine 1.77. BNP 311. Chest x-ray: Worsening diffuse air space opacities in bilateral lungs, possible multifocal pneumonia versus pulmonary edema. IMPRESSIONS 1. Acute hypoxic respiratory failure. 2. Fkuhb-wu-faeqvkt kidney disease. 3. Pancytopenia. 4. Suspect pneumonia in the setting of leukopenia and low-grade fever and chest x-ray findings. 5. Coronary artery disease, status post 2-vessel coronary artery bypass grafting in 2008. 6. Hypertension. 7. Hyperlipidemia. 8. History of deep venous thrombosis, on chronic anticoagulation. 9. Supratherapeutic international normalized ratio, status post vitamin K fresh frozen plasma, now subtherapeutic. 10. Left lower extremity wound, status post fall with multiple skin tears. 11. Rheumatoid arthritis. 12. Altered mental status. 13. Electrolyte abnormalities. 14. Elevated beta-natriuretic peptide. RECOMMENDATIONS: Most recent echocardiogram demonstrates normal LV systolic function with impaired LV relaxation. Continue diuretics. Watch creatinine closely. Continue current cardiac medications otherwise. Suspect patient's acute hypoxic respiratory failure is infectious in etiology given leukopenia and fever. Thank you for this consult. We will continue to follow. Job#: [id number]
[2017-10-29] MEDS: MEROPENEM 500 MG VIAL IV SCH ×3 (02:14→18:40)
[2017-10-29 06:15] LABS: HEMATOCRIT 27.3 % (34.2-44.1); HEMOGLOBIN 8.7 g/dL (12.0-16.0); MEAN CORPUSCULAR HEMOGLOBIN 27.5 pg (28-32); MEAN CORPUSCULAR HGB CONC 31.9 g/dL (31-35); MEAN CORPUSCULAR VOLUME 86.4 fL (81-99); PLATELET COUNT 56 x10e3/uL (140-360); RED BLOOD COUNT 3.16 x10e6/uL (3.6-5.1); RED CELL DISTRIBUTION WIDTH 19.6 % (11.7-14.4)
--- NOTE | 2017-10-29 06:31 | Diagnostic Imaging Report ---
CHEST SINGLE (PORTABLE), 10/29/2017 7:00 AM Technique: CHEST SINGLE (PORTABLE) Comparison: 10/19/2017 Clinical history: Pneumonia Findings: Rotation precludes adequate assessment of the cardiomediastinal silhouette status post sternotomy. Unchanged bones with posttraumatic deformity, left glenohumeral osteoarthrosis and right humeral hemiarthroplasty. Impression: 1. Increased bilateral pulmonary opacities which may reflect a combination of infection and edema. 2. Elevated right hemidiaphragm. No significant effusion appreciated. Signed by: Dr Dolly Drew MD on 10/29/2017 6:28 AM
[2017-10-29 06:46] LABS: ALBUMIN 1.6 g/dL (3.5-5.0); ALBUMIN/GLOBULIN RATIO 0.5 (0.8-2.0); ANION GAP 18.7 mmol/L (8-16); CALCIUM 9.5 mg/dL (8.4-10.2); CREATININE, SERUM 1.82 mg/dL (0.57-1.11); MAGNESIUM 2.2 MG/DL (1.3-2.1); PHOSPHORUS 3.1 MG/DL (2.3-4.7); POTASSIUM 3.7 mmol/L (3.5-5.1)
[2017-10-29] MEDS: CARVEDILOL 12.5 MG TAB PO SCH ×3 (08:00→17:00)
[2017-10-29] MEDS ORDERED: MIDAZOLAM HCL 25 MG in DEXTROSE 5% 50ML 45 ML IV PRN (09:00)
[2017-10-29] MEDS: PANTOPRAZOLE SOD 40 MG TABEC PO SCH (09:00)
[2017-10-29] MEDS: MAGNESIUM OXIDE 400 MG TAB PO SCH ×2 (09:00→17:00)
[2017-10-29] MEDS ORDERED: VANCOMYCIN 1GM/NS 250 ML 250 ML IV SCH (09:00)
[2017-10-29] MEDS: FOLIC ACID 1 MG TAB PO SCH (09:00)
[2017-10-29] MEDS ORDERED: FILGRASTIM 480 MCG/0.8 ML VIAL SC SCH (09:00)
[2017-10-29] MEDS ORDERED: SODIUM CHLORIDE 0.9% 1000ML 1,000 ML ONE (09:10)
[2017-10-29] MEDS: MIDAZOLAM HCL 25 MG in SODIUM CHLORIDE 0.9% 50ML 45 ML IV PRN (09:30)
--- NOTE | 2017-10-29 09:50 | Diagnostic Imaging Report ---
PROCEDURE:CHEST SINGLE (PORTABLE) TECHNIQUE:Supine AP portable chest INDICATION:Line placement placement; intubation COMPARISON:[facility], , CHEST SINGLE (PORTABLE), 10/29/2017, 5:51. FINDINGS: See conclusion. CONCLUSION: 1. Endotracheal tube tip about 3 cm from the mechelle. 2. Left internal jugular central venous catheter tip about 3 cm from the superior atrial caval junction. 3. Low lung volume. Bilateral airspace opacities consistent with a combination of atelectasis, pneumonia and/or pulmonary edema. 4. Stable cardiomediastinal silhouette, with mild cardiomegaly and central vascular prominence. 5. Right shoulder arthroplasty. Grossly intact skeleton. 6. Intact midline sternotomy wires. Dictated by: Danilo Hughes M.D. on 10/29/2017 at 9:51 Electronically approved by: Danilo Hughes M.D. on 10/29/2017 at 9:51
[2017-10-29] MEDS: FILGRASTIM 480 MCG/0.8 ML VIAL SC SCH (10:04)
[2017-10-29 10:21] LABS: ABG HCO3 21 mmol/L (23-28); ABG PCO2 33 mmHg (41-51); ABG PH 7.42 (7.31-7.41); ABG PO2 64 mmHg (80-105)
[2017-10-29 10:23] LABS: ABG HCO3 25 mmol/L (23-28); ABG PCO2 34 mmHg (41-51); ABG PH 7.48 (7.31-7.41); ABG PO2 71 mmHg (80-105)
[2017-10-29] MEDS: BALSAM PERU/CASTOR OIL 60 GM OINT...G. TP SCH ×2 (11:07→17:32)
[2017-10-29] MEDS: CLOTRIMAZOLE 1% CR 15 GM TOP SCH ×2 (11:07→17:32)
[2017-10-29 11:21] LABS: BLAST CELLS % MANUAL 2; EOSINOPHILS % (MANUAL) 6 % (0-7); HYPOCHROMASIA MODERATE; LYMPHOCYTES % (MANUAL) 48 % (19-48); METAMYELOCYTES % (MANUAL) 4 % (0-0); MONOCYTES % (MANUAL) 16 % (3.4-9.0); MYELOCYTES % (MANUAL) 2 % (0-0); NEUTROPHILS % (MANUAL) 16 % (40-74); NUCLEATED RED BLOOD CELLS 2; PLATELET ESTIMATE MARKEDLY DECREASED; PLATELET MORPHOLOGY COMMENT FEW GIANT; PROMYELOCYTES % (MANUAL) 2 % (0-0); RBC MORPHOLOGY COMMENT ABNORMAL
[2017-10-29 11:22] LABS: ANISOCYTOSIS MODERATE; BURR CELLS SLIGHT; ELLIPTOCYTE, RBC SLIGHT; POIKILOCYTOSIS SLIGHT
[2017-10-29] MEDS: ALBUTEROL SULF 0.083% NEB SOLN 3 ML NEB NEB SCH ×2 (14:00→15:00)
--- NOTE | 2017-10-29 14:25 | Progress Note ---
DATE: October 29, 2017 CARDIOLOGY PROGRESS NOTE SUBJECTIVE: The patient was intubated this morning for respiratory distress. OBJECTIVE VITALS: Temperature 98.8 degrees, pulse 85, respiratory rate 18, blood pressure 86/46, and oxygen saturation 97% on mechanical ventilation. GENERAL: Woman in no acute distress intubated and sedated. LUNGS: Diminished breath sounds. No wheezes or crackles. CARDIOVASCULAR: Normal rate. Regular rhythm. No murmur. Normal S1 and S2. ABDOMEN: Soft and nontender. EXTREMITIES: Compression wrapping noted with ecchymosis across the body. CARDIAC MEDICATIONS 1. Bumex 1 mg an hour. 2. Carvedilol 25 mg p.o. t.i.d. 3. Simvastatin 10 mg p.o. at bedtime. LABS: WBC 11.7, hemoglobin 8.7, hematocrit 27.3, and platelets 56,000. Sodium 140, potassium 3.7, chloride 101, CO2 24, BUN 60, creatinine 1.82. Telemetry is normal sinus rhythm. Chest x-ray with increased bilateral pulmonary opacities, which may reflect a combination of infection and edema, elevated right hemidiaphragm. No significant effusion appreciated. IMPRESSION 1. Acute hypoxic respiratory failure, now on mechanical ventilation. 2. Yrozj-cg-oduiwql kidney disease. 3. Pancytopenia. 4. Suspect pneumonia in the setting of leukopenia and low-grade fever and chest x-ray findings. 5. Coronary artery disease: Status post 2-vessel coronary artery bypass graft in 2008. 6. Hypertension. 7. Hyperlipidemia. 8. History of deep venous thrombosis, on chronic anticoagulation. 9. Supratherapeutic INR: Status post vitamin K and fresh frozen plasma, now subtherapeutic. 10. Left lower extremity wound: Status post fall with multiple skin tears. 11. Rheumatoid arthritis. 12. Altered mental status. 13. Electrolyte abnormalities. 14. Elevated brain natriuretic peptide. RECOMMENDATIONS: The patient's echocardiogram demonstrated normal LV systolic function with impaired LV relaxation. Continue diuretics. Watch creatinine closely. Continue current cardiac medications. Antibiotics per primary service. Suspect hypoxic respiratory failure secondary to pneumonia given leukopenia and x-ray findings. Thank you for this consult. Will continue to follow. Job#: [id number] IN
[2017-10-29] MEDS: BUMETANIDE 10 MG in SODIUM CHLORIDE 0.9% 100 ML 60 ML IV SCH ×2 (16:00→17:33)
[2017-10-29] MEDS ORDERED: SUCCINYLCHOLINE CHLORIDE 20 MG/ML 10ML VIAL ONE (18:13)
[2017-10-29] MEDS ORDERED: ETOMIDATE 40 MG/ 20ML VIAL IV ONE (18:13)
[2017-10-29] MEDS ORDERED: PANTOPRAZOLE 40 MG 10ML VIAL ONE (19:00)
--- NOTE | 2017-10-29 20:06 | Diagnostic Imaging Report ---
PROCEDURE:X-RAY ABDOMEN - KUB COMPARISON:[facility], CT, CT ABDOMEN/PELVIS WO, 10/18/2017, 12:29. INDICATIONS:OG TUBE PLACEMENT FINDINGS: See conclusion. CONCLUSION: 1. Enteric tube is seen below the left hemidiaphragm, with distal tip projecting in the proximal fundus and side-port at the level of the GE junction. Further advancement is recommended. 2. Nonobstructive bowel gas pattern. 3. Generalized osteopenia. No acute bony abnormalities. Intact posterior fusion orthopedic hardware in the lower lumbar spine. 4. Patchy opacities in the lung bases bilaterally, left greater than right, which represent atelectasis versus pneumonia. Armando Gil M.D. Dictated by: Armando Gil M.D. on 10/29/2017 at 20:07 Electronically approved by: Armando Gil M.D. on 10/29/2017 at 20:07
[2017-10-29] MEDS: LINEZOLID 600 MG/D5W 300ML 300 ML IV SCH (20:56)
[2017-10-29] MEDS: SIMVASTATIN 20 MG TAB PO SCH (20:56)
--- NOTE | 2017-10-29 22:36 | Consultation ---
DATE OF CONSULTATION: ADDENDUM I am concerned about Coumadin associated skin necrosis in this patient. Agree with wound care. Agree with antibiotic. Discontinue Coumadin. Will follow. Job#: [id number]
--- NOTE | 2017-10-29 23:33 | Consultation ---
REASON FOR CONSULTATION: Sepsis. HISTORY OF PRESENT ILLNESS: This is an 66-nml[age]-vut white female. The patient had been by Dr. Lehman as an outpatient and Dr. Rao apparently. The patient is currently at the intensive care unit, ill and infectious disease was consulted. The patient who apparently has history of overactive bladder, history of coronary artery disease, status post CABG, bilateral total knee replacement, right shoulder replacement, osteoporosis, hypertension, hyperkalemia. She presented with acute exacerbation of her chronic kidney disease. The patient has multiple skin tears, multiple wound in lower extremities, coagulopathy, history of cholecystectomy, appendectomy, coronary artery disease with CABG. Her home medications she is on carvedilol, hydrochlorothiazide, [place], Losartan, potassium, ramipril, Coumadin, prednisone, methotrexate. Patient has been seen by critical care, has been seen by cardiology. I was asked to see her today to make recommendations towards antibiotic. The patient was currently intubated, noncommunicative, history was taken mainly from chart. The patient since she came here, she had chest x-ray, showed mild cardiomegaly. She had CT of the abdomen and pelvis, showed bilateral upper lobe patchy opacity concerning for infection, mildly displaced 10th and 11th rib fracture. The patient was originally admitted to the hospital on October 19. I was asked to see her today, on October 29. Apparently, she got sick overnight, transferred to ICU. She was intubated. Infectious disease was consulted today because they were concerned about sepsis. The patient was continued on ventilator and there is no family for me to interview, so history was taken mainly from chart. She had multiple lacerations. I can see multiple bruising noted on the skin on the chest and on the right elbow. The area on the chest is concerning with early necrosis noted. She had been seen by Dr. Mcclain earlier. LABORATORY DATA: Reviewed. Blood culture on was no growth. White count was 1.77, hemoglobin 9.4, her platelets 55,000. Sodium 133, potassium 3.8, creatinine 1.77. MEDICATIONS: The patient is currently on meropenem q.8, Lotrimin, Neupogen, Coreg. PHYSICAL EXAMINATION GENERAL: She is intubated, sedated. VITALS: Stable. T-max 100.4. HEENT: Normocephalic. NECK: Supple. CHEST: A few crackles. COR: S1, S2. No murmur. ABDOMEN: Soft. IMPRESSION 1. Respiratory failure, acute: I think there is hospital associated aspiration pneumonia. I am also concerned about the patient is overall very ill. 2. Pancytopenia. 3. History of deep vein thrombosis. 4. Multiple wounds. 5. Rheumatoid arthritis. 6. Altered mental status. PLAN: Agree with meropenem. Will adjust for kidney function. Will put her on linezolid. Since the patient has chronic kidney disease, I am concerned she may go into worsened condition with acute renal failure. Pancytopenia, hematology/oncology is following. Will discuss with Dr. Sow. Concerned about the skin lesion. Concerned if it is Coumadin toxicity or side effects. Will follow with you. Job#: [id number] DORITA
[2017-10-30] VITALS (100 sets, daily range): BP systolic 62–177; BP diastolic 38–85
[2017-10-30] MEDS: ALBUTEROL SULF 0.083% NEB SOLN 3 ML NEB NEB SCH ×4 (00:15→23:20)
[2017-10-30] MEDS ORDERED: NOREPINEPHRINE 8 MG/D5W 250 ML 250 ML ONE ×3 (00:40→18:09)
[2017-10-30] MEDS: NOREPINEPHRINE INJ 4MG/4ML 8 MG in DEXTROSE 5% 250ML 242 ML IV SCH (00:43)
[2017-10-30] MEDS: BUMETANIDE 10 MG in SODIUM CHLORIDE 0.9% 100 ML 60 ML IV SCH (03:51)
--- NOTE | 2017-10-30 05:46 | Diagnostic Imaging Report ---
CHEST SINGLE (PORTABLE), 10/30/2017 7:00 AM Technique: CHEST SINGLE (PORTABLE) Comparison: Previous day Clinical history: Pneumonia Findings: Stable cardiomediastinal silhouette status post sternotomy. Unchanged bones with left glenohumeral osteoarthrosis and right humeral hemiarthroplasty. Impression: Lines/tubes: Placement of subdiaphragmatic NG tube. Stable ET tube 2.2 cm above the mechelle, left CVC tip over the SVC, median sternotomy wires. 1. Stable bilateral pulmonary opacities which may reflect a combination of infection and edema. 2. Mildly elevated right hemidiaphragm. No significant effusion appreciated. Signed by: Dr Dolly Drew MD on 10/30/2017 5:43 AM
[2017-10-30 06:19] LABS: HEMATOCRIT 27.5 % (34.2-44.1); HEMOGLOBIN 8.8 g/dL (12.0-16.0); MEAN CORPUSCULAR HEMOGLOBIN 27.4 pg (28-32); MEAN CORPUSCULAR VOLUME 85.7 fL (81-99); PLATELET COUNT 72 x10e3/uL (140-360); RED BLOOD COUNT 3.21 x10e6/uL (3.6-5.1); RED CELL DISTRIBUTION WIDTH 19.4 % (11.7-14.4)
[2017-10-30] MEDS: MEROPENEM 500 MG VIAL IV SCH ×2 (06:27→18:08)
[2017-10-30 07:07] LABS: ALBUMIN 1.4 g/dL (3.5-5.0); ALBUMIN/GLOBULIN RATIO 0.5 (0.8-2.0); ANION GAP 15.3 mmol/L (8-16); CALCIUM 9.1 mg/dL (8.4-10.2); CREATININE, SERUM 2.05 mg/dL (0.57-1.11); POTASSIUM 3.3 mmol/L (3.5-5.1)
[2017-10-30] MEDS ORDERED: POTASSIUM CHLORIDE 20MEQ/100ML 200 ML IV ONE (07:45)
[2017-10-30] MEDS: CARVEDILOL 12.5 MG TAB PO SCH ×3 (08:00→16:48)
[2017-10-30] MEDS: FOLIC ACID 1 MG TAB PO SCH (09:21)
[2017-10-30] MEDS: MAGNESIUM OXIDE 400 MG TAB PO SCH ×2 (09:21→16:48)
[2017-10-30] MEDS: LINEZOLID 600 MG/D5W 300ML 300 ML IV SCH ×2 (09:21→22:15)
[2017-10-30] MEDS: BALSAM PERU/CASTOR OIL 60 GM OINT...G. TP SCH ×2 (09:30→16:43)
[2017-10-30] MEDS: PANTOPRAZOLE SOD 40 MG TABEC PO SCH (09:30)
[2017-10-30] MEDS: FILGRASTIM 480 MCG/0.8 ML VIAL SC SCH (09:45)
[2017-10-30] MEDS: CLOTRIMAZOLE 1% CR 15 GM TOP SCH ×2 (10:00→16:43)
[2017-10-30] MEDS ORDERED: ALBUMIN 5% 500 ML IV ONE (15:30)
--- NOTE | 2017-10-30 21:28 | Progress Note ---
DATE: October 30, 2017 CARDIOLOGY PROGRESS NOTE SUBJECTIVE: The patient remains intubated and sedated. She is on Levophed 5 mcg per minute. OBJECTIVE VITAL SIGNS: Temperature 99.4 degrees, pulse 88, respiratory rate 22, blood pressure 101/54, oxygen saturation 96% on mechanical ventilation. GENERAL: Intubated and sedated. In no acute distress. LUNGS: Diminished breath sounds. No wheezes or crackles. CARDIOVASCULAR: Normal rate. Regular rhythm. No murmur. Normal S1 and S2. ABDOMEN: Soft and nontender. EXTREMITIES: Compression wrappings noted with ecchymosis across the body. There is 1+ dependent pitting edema. CARDIAC MEDICATIONS 1. Levophed 5 mcg per minute. 2. Simvastatin 10 mg p.o. at bedtime. LABS: WBC 7.05, hemoglobin 8.8, hematocrit 27.5, platelets 72,000. Sodium 137, potassium 3.3, chloride 101, CO2 of 24, BUN 67, creatinine 2.05. TELEMETRY: Normal sinus rhythm. Chest x-ray stable bilateral pulmonary opacities which may reflect a combination of infection and edema. Mildly elevated right hemidiaphragm. IMPRESSION 1. Acute hypoxic respiratory failure, now on mechanical ventilation. 2. Septic shock, suspect pneumonia. 3. Atjby-gl-shgtlph kidney disease. 4. Pancytopenia. 5. Coronary artery disease: Status post 2-vessel coronary artery bypass graft in 2008. 6. Hypertension. 7. Hyperlipidemia. 8. History of deep venous thrombosis, on chronic anticoagulation. 9. Left lower extremity wound: Status post fall with multiple skin tears. 10. Supratherapeutic INR status post vitamin K and fresh frozen plasma, now subtherapeutic. 11. Rheumatoid arthritis. 12. Altered mental status. 13. Electrolyte abnormalities. 14. Elevated brain natriuretic peptide. RECOMMENDATIONS: Echocardiogram demonstrated normal LV systolic function with impaired LV relaxation. Given hypotension requiring pressor support, hold beta blockade and diuretics. Continue current cardiac medications otherwise. Antibiotics per infectious disease. Thank you for this consult. We will continue to follow. Job#: [id number]
[2017-10-30] MEDS: SIMVASTATIN 20 MG TAB PO SCH (22:15)
[2017-10-31] VITALS (96 sets, daily range): BP systolic 82–119; BP diastolic 39–66
[2017-10-31] MEDS: MIDAZOLAM HCL 25 MG in SODIUM CHLORIDE 0.9% 50ML 45 ML IV PRN ×3 (00:30→20:21)
[2017-10-31] MEDS: NOREPINEPHRINE INJ 4MG/4ML 8 MG in DEXTROSE 5% 250ML 242 ML IV SCH (00:45)
[2017-10-31] MEDS: MEROPENEM 500 MG VIAL IV SCH ×2 (05:10→16:58)
[2017-10-31 06:10] LABS: HEMATOCRIT 28.4 % (34.2-44.1); MEAN CORPUSCULAR HGB CONC 31.7 g/dL (31-35); MEAN CORPUSCULAR VOLUME 88.2 fL (81-99); PLATELET COUNT 74 x10e3/uL (140-360); RED BLOOD COUNT 3.22 x10e6/uL (3.6-5.1); RED CELL DISTRIBUTION WIDTH 20.1 % (11.7-14.4)
--- NOTE | 2017-10-31 06:10 | Diagnostic Imaging Report ---
CHEST SINGLE (PORTABLE), 10/31/2017 5:00 AM Technique: CHEST SINGLE (PORTABLE) Comparison: Previous day Clinical history: Intubated Findings: Stable cardiomediastinal silhouette and bones. Impression: Lines/tubes: ET tube 1.6 cm above the mechelle. Stable left CVC tip over the SVC, median sternotomy wires, subdiaphragmatic NG tube. 1. Persistent bilateral pulmonary opacities, increased at the left lung base, which could be due to aspiration/infection or atelectasis. 2. Possible small effusions. Signed by: Dr Dolly Drew MD on 10/31/2017 6:06 AM
[2017-10-31 06:26] LABS: ALBUMIN 1.8 g/dL (3.5-5.0); ALBUMIN/GLOBULIN RATIO 0.7 (0.8-2.0); ANION GAP 17.5 mmol/L (8-16); CALCIUM 9.3 mg/dL (8.4-10.2); CREATININE, SERUM 2.17 mg/dL (0.57-1.11); PHOSPHORUS 0.8 MG/DL (2.3-4.7); POTASSIUM 4.5 mmol/L (3.5-5.1)
[2017-10-31] MEDS: ALBUTEROL SULF 0.083% NEB SOLN 3 ML NEB NEB SCH ×3 (07:03→23:00)
[2017-10-31] MEDS: CARVEDILOL 12.5 MG TAB PO SCH ×3 (08:00→16:57)
[2017-10-31] MEDS: FILGRASTIM 480 MCG/0.8 ML VIAL SC SCH (09:00)
[2017-10-31] MEDS ORDERED: SODIUM PHOSPHATE 30 MMOL in SODIUM CHLORIDE 0.9% 250ML 250 ML IV ONE (09:15)
[2017-10-31] MEDS ORDERED: SODIUM CHLORIDE 0.9% 250ML 250 ML ONE (09:30)
[2017-10-31] MEDS: PANTOPRAZOLE SOD 40 MG TABEC PO SCH (09:30)
[2017-10-31] MEDS: MAGNESIUM OXIDE 400 MG TAB PO SCH ×2 (09:30→16:57)
[2017-10-31] MEDS: FOLIC ACID 1 MG TAB PO SCH (09:30)
[2017-10-31] MEDS: BALSAM PERU/CASTOR OIL 60 GM OINT...G. TP SCH ×2 (09:30→16:58)
[2017-10-31] MEDS: CLOTRIMAZOLE 1% CR 15 GM TOP SCH ×2 (09:30→16:57)
[2017-10-31] MEDS: LINEZOLID 600 MG/D5W 300ML 300 ML IV SCH ×2 (09:30→21:40)
--- NOTE | 2017-10-31 12:43 | Progress Note ---
DATE: October 31, 2017 CARDIOLOGY PROGRESS NOTE SUBJECTIVE: Patient remains intubated and sedated on Levophed 5 mcg per minute. OBJECTIVE VITAL SIGNS: Temperature 100.6 degrees, pulse 85, respiratory rate 30, blood pressure 90/49, oxygen saturation 94% on mechanical ventilation. GENERAL: Intubated and sedated. No acute distress. LUNGS: Diminished breath sounds. No wheezes or crackles. CARDIOVASCULAR: Normal rate, regular rhythm. No murmur. Normal S1 and S2. ABDOMEN: Soft, nontender. EXTREMITIES: Compression wrappings noted in bilateral lower extremities with ecchymosis across the body. There is 1+ dependent pitting edema. CARDIAC MEDICATIONS 1. Simvastatin 10 mg p.o. nightly. 2. Levophed 5 mcg per minute. LABS: WBC 15.49, hemoglobin 9, hematocrit 28.4, platelets 74. Sodium 136, potassium 4.5, chloride 101, CO2 22, BUN 81, creatinine 2.17. TELEMETRY: Normal sinus rhythm. CHEST X-RAY: Persistent bilateral pulmonary opacities increased at the left lung base, which could be due to aspiration/infection or atelectasis, possible small effusions. IMPRESSION 1. Acute hypoxic respiratory failure, now on mechanical ventilation. 2. Septic shock, suspect pneumonia. 3. Dnsfw-oh-hqvetue kidney disease. 4. Pancytopenia. 5. Coronary artery disease, status post 2-vessel coronary artery bypass graft in 2008. 6. Hypertension. 7. Hyperlipidemia. 8. History of deep vein thrombosis on chronic anticoagulation. 9. Left lower extremity wounds status post fall with multiple skin tears. 10. Supratherapeutic international normalized ratio, status post vitamin K and fresh frozen plasma, now subtherapeutic. 11. Rheumatoid arthritis. 12. Altered mental status. 13. Electrolyte abnormality. 14. Elevated Beta natriuretic peptide. RECOMMENDATIONS: Echocardiogram demonstrated normal LV systolic function with impaired LV relaxation. Given hypotension requiring pressor support and LEONARDO, hold beta blockers and diuretics. Antibiotics per Infectious Disease. Continue current cardiac medications otherwise. The ventilator management per Pulmonary. Thank you for this consult. We will continue to follow. Job#: [id number] EV
[2017-10-31] MEDS: INSULIN REGULAR, HUMAN 100 UNIT/1 ML 3ML VIAL SQ SCH (18:55)
[2017-10-31] MEDS ORDERED: DEXTROSE 50% SYRINGE 50 ML IV PRN (19:00)
[2017-10-31] MEDS: SIMVASTATIN 20 MG TAB PO SCH (21:40)
[2017-11-01] VITALS (95 sets, daily range): BP systolic 91–125; BP diastolic 41–66
[2017-11-01] MEDS: INSULIN REGULAR, HUMAN 100 UNIT/1 ML 3ML VIAL SQ SCH ×4 (00:19→18:19)
[2017-11-01] MEDS: NOREPINEPHRINE INJ 4MG/4ML 8 MG in DEXTROSE 5% 250ML 242 ML IV SCH (00:45)
[2017-11-01] MEDS: MIDAZOLAM HCL 25 MG in SODIUM CHLORIDE 0.9% 50ML 45 ML IV PRN (05:05)
[2017-11-01] MEDS: MEROPENEM 500 MG VIAL IV SCH ×2 (05:05→18:18)
--- NOTE | 2017-11-01 05:42 | Diagnostic Imaging Report ---
CHEST SINGLE (PORTABLE), 11/01/2017 7:00 AM Technique: CHEST SINGLE (PORTABLE) Comparison: Previous day Clinical history: Intubation Findings: Stable cardiomediastinal silhouette and bones. Impression: Lines/tubes: Stable ET tube, left CVC tip over the SVC, median sternotomy wires, subdiaphragmatic NG tube. 1. No significant change in bilateral pulmonary opacities. 2. Small pleural effusions. Signed by: Dr Dolly Drew MD on 11/01/2017 5:38 AM
[2017-11-01 06:32] LABS: BASOPHILS # (AUTO) 0.1 (0.0-0.1); BASOPHILS % 0.2 % (0.0-1.0); EOSINOPHILS # (AUTO) 0.2 (0.0-0.4); EOSINOPHILS % 0.6 % (0.0-6.0); HEMATOCRIT 27.4 % (34.2-44.1); HEMOGLOBIN 8.9 g/dL (12.0-16.0); LYMPHOCYTES # (AUTO) 1.6 (1.0-3.2); LYMPHOCYTES % 5.4 % (18.0-39.1); MEAN CORPUSCULAR HEMOGLOBIN 27.5 pg (28-32); MEAN CORPUSCULAR HGB CONC 32.5 g/dL (31-35); MEAN CORPUSCULAR VOLUME 84.6 fL (81-99); MONOCYTES # (AUTO) 3.2 (0.2-0.8); MONOCYTES % 10.7 % (4.4-11.3); NEUTROPHILS # (AUTO) 16.5 (2.1-6.9); NEUTROPHILS % 56.2 % (38.7-80.0); PLATELET COUNT 75 x10e3/uL (140-360); RED BLOOD COUNT 3.24 x10e6/uL (3.6-5.1); RED CELL DISTRIBUTION WIDTH 20.4 % (11.7-14.4)
[2017-11-01 06:57] LABS: ANION GAP 18.7 mmol/L (8-16); CALCIUM 8.4 mg/dL (8.4-10.2); CREATININE, SERUM 2.43 mg/dL (0.57-1.11); POTASSIUM 4.7 mmol/L (3.5-5.1)
[2017-11-01] MEDS: ALBUTEROL SULF 0.083% NEB SOLN 3 ML NEB NEB SCH ×3 (07:30→23:10)
[2017-11-01] MEDS: CARVEDILOL 12.5 MG TAB PO SCH ×3 (08:00→17:00)
[2017-11-01 08:28] LABS: BAND NEUTROPHILS % (MANUAL) 20 %; EOSINOPHILS % (MANUAL) 1 % (0-7); LYMPHOCYTES % (MANUAL) 5 % (19-48); METAMYELOCYTES % (MANUAL) 12 % (0-0); MONOCYTES % (MANUAL) 5 % (3.4-9.0); MYELOCYTES % (MANUAL) 5 % (0-0); NEUTROPHILS % (MANUAL) 49 % (40-74); NUCLEATED RED BLOOD CELLS 4; PROMYELOCYTES % (MANUAL) 3 % (0-0)
[2017-11-01 08:31] LABS: PLATELET ESTIMATE MODERATELY DECREASED; PLATELET MORPHOLOGY COMMENT FEW LARGE
[2017-11-01 08:32] LABS: ANISOCYTOSIS MODERATE; POIKILOCYTOSIS SLIGHT; RBC MORPHOLOGY COMMENT ABNORMAL
[2017-11-01] MEDS: PANTOPRAZOLE SODIUM 40 MG SUSPDR.PKT PO SCH (09:18)
[2017-11-01] MEDS: FOLIC ACID 1 MG TAB PO SCH (09:18)
[2017-11-01] MEDS: MAGNESIUM OXIDE 400 MG TAB PO SCH ×2 (09:18→18:18)
[2017-11-01] MEDS: LINEZOLID 600 MG/D5W 300ML 300 ML IV SCH ×2 (09:18→21:10)
[2017-11-01] MEDS ORDERED: HYDROMORPHONE 2MG/ML INJ IV PRN (11:00)
--- NOTE | 2017-11-01 12:20 | Progress Note ---
DATE: November 01, 2017 CARDIOLOGY PROGRESS NOTE SUBJECTIVE: Patient remains intubated and sedated on Levophed 5 mcg per minute. OBJECTIVE VITAL SIGNS: Temperature 99.6 degrees, pulse 91, respiratory rate 30, blood pressure 96/41, oxygen saturation 94% on mechanical ventilation. GENERAL: Intubated and sedated, in no acute distress. LUNGS: Diminished breath sounds. No wheezes or crackles. CARDIOVASCULAR: Normal rate, regular rhythm. No murmur. Normal S1 and S2. ABDOMEN: Soft, nontender. EXTREMITIES: Compression wrappings noted on bilateral lower extremities. Ecchymoses are noted across the body with 2+ dependent edema. CARDIAC MEDICATIONS 1. Simvastatin 10 mg p.o. nightly. 2. Levophed 5 mcg per minute. LABS: WBC 29.37, hemoglobin 8.9, hematocrit 27.4, platelets 75. Sodium 133, potassium 4.7, chloride 96, CO2 23, BUN 99, creatinine 2.43. Sputum culture is growing yeast species. CHEST X-RAY: No significant change in bilateral pulmonary opacities. Small pleural effusions. TELEMETRY: Normal sinus rhythm. IMPRESSION 1. Acute hypoxic respiratory failure, now on mechanical ventilation. 2. Septic shock, suspect pneumonia. 3. Tzanh-xw-akvuhpl kidney disease. 4. Pancytopenia. 5. Coronary artery disease, status post 2-vessel coronary artery bypass graft. 6. Hypertension. 7. Hyperlipidemia. 8. History of deep vein thrombosis on chronic anticoagulation. 9. Left lower extremity wound status post fall with multiple skin tears. 10. Supratherapeutic international normalized ratio, status post vitamin K and fresh frozen plasma, now subtherapeutic. 11. Rheumatoid arthritis. 12. Altered mental status. 13. Electrolyte abnormality. 14. Elevated beta natriuretic peptide. RECOMMENDATIONS: Echocardiogram demonstrated normal LV systolic function with impaired LV relaxation. Given hypotension requiring pressor support and worsening LENOARDO, hold beta blockers and diuretics. Fluids and pressor support as necessary for presumed sepsis. Antibiotics per infectious disease. Continue current cardiac medications otherwise. Ventilator management per pulmonary. Thank you for this consult. We will continue to follow. Job#: [id number]
[2017-11-01] MEDS ORDERED: HYDROMORPHONE 20MG/ NS 100ML IV PRN (14:30)
[2017-11-01] MEDS ORDERED: BUMETANIDE 10 MG in SODIUM CHLORIDE 0.9% 100 ML 60 ML IV SCH ×2 (14:30→22:15)
[2017-11-01] MEDS ORDERED: HYDROMORPHONE 100 ML IV PRN (14:45)
[2017-11-01] MEDS ORDERED: BUMETANIDE INJ 0.25MG/ML 4ML VIAL IV SCH (15:15)
[2017-11-01] MEDS: CLOTRIMAZOLE 1% CR 15 GM TOP SCH (15:50)
[2017-11-01] MEDS: BALSAM PERU/CASTOR OIL 60 GM OINT...G. TP SCH (17:03)
[2017-11-01] MEDS: BUMETANIDE 10 MG in SODIUM CHLORIDE 0.9% 100 ML 60 ML IV SCH (19:15)
[2017-11-01] MEDS: SIMVASTATIN 20 MG TAB PO SCH (21:10)
[2017-11-01] MEDS ORDERED: ACETAMINOPHEN 325 MG TAB ONE (23:15)
[2017-11-01] MEDS ORDERED: ACETAMINOPHEN 1000 MG/100 ML 100 ML IV ONE (23:40)
[2017-11-01] MEDS ORDERED: ACETAMINOPHEN 1000 MG/100 ML IV STA (23:49)
[2017-11-02] VITALS (89 sets, daily range): BP systolic 77–119; BP diastolic 40–59
[2017-11-02] MEDS ORDERED: ACETAMINOPHEN 1000 MG/100 ML IV SCH
[2017-11-02] MEDS: NOREPINEPHRINE INJ 4MG/4ML 8 MG in DEXTROSE 5% 250ML 242 ML IV SCH (00:03)
[2017-11-02] MEDS: INSULIN REGULAR, HUMAN 100 UNIT/1 ML 3ML VIAL SQ SCH ×4 (00:05→18:00)
[2017-11-02] MEDS ORDERED: BUMETANIDE 10 MG in SODIUM CHLORIDE 0.9% 100 ML 60 ML IV SCH ×2 (00:30→10:15)
[2017-11-02] MEDS: BUMETANIDE 10 MG in SODIUM CHLORIDE 0.9% 100 ML 60 ML IV SCH (01:15)
[2017-11-02] MEDS: MEROPENEM 500 MG VIAL IV SCH ×2 (05:40→18:31)
[2017-11-02] MEDS ORDERED: ACETAMINOPHEN 1000 MG/100 ML IV PRN (06:00)
--- NOTE | 2017-11-02 06:11 | Diagnostic Imaging Report ---
CHEST SINGLE (PORTABLE), 11/02/2017 5:00 AM Technique: CHEST SINGLE (PORTABLE) Comparison: Previous day Clinical history: Intubated Findings: Stable cardiomediastinal silhouette and bones. Impression: Lines/tubes: Stable ET tube, left CVC tip over the SVC, median sternotomy wires, subdiaphragmatic NG tube. 1. No significant change in bilateral pulmonary opacities. 2. Small pleural effusions. Signed by: Dr Dolly Drew MD on 11/02/2017 6:08 AM
[2017-11-02] MEDS: ALBUTEROL SULF 0.083% NEB SOLN 3 ML NEB NEB SCH ×3 (06:15→22:36)
[2017-11-02 06:31] LABS: ALBUMIN 1.6 g/dL (3.5-5.0); ALBUMIN/GLOBULIN RATIO 0.6 (0.8-2.0); ANION GAP 17.1 mmol/L (8-16); CALCIUM 8.5 mg/dL (8.4-10.2); CREATININE, SERUM 2.8 mg/dL (0.57-1.11); POTASSIUM 5.1 mmol/L (3.5-5.1)
[2017-11-02] MEDS: PANTOPRAZOLE SODIUM 40 MG SUSPDR.PKT PO SCH (07:30)
[2017-11-02] MEDS: CARVEDILOL 12.5 MG TAB PO SCH ×2 (08:00→12:00)
[2017-11-02] MEDS: FOLIC ACID 1 MG TAB PO SCH (09:00)
[2017-11-02] MEDS: MAGNESIUM OXIDE 400 MG TAB PO SCH ×2 (09:00→18:31)
[2017-11-02] MEDS: LINEZOLID 600 MG/D5W 300ML 300 ML IV SCH ×2 (09:28→21:30)
[2017-11-02] MEDS: HEPARIN 25,000U/0.45% NS 250ML 1,100 UNIT in SODIUM CHLORIDE 0.9% 250ML 0 ML IV SCH (15:08)
[2017-11-02] MEDS ORDERED: HEPARIN 25,000U/0.45% NS 250ML 250 ML ONE (15:13)
[2017-11-02] MEDS: BALSAM PERU/CASTOR OIL 60 GM OINT...G. TP SCH ×2 (16:43→17:35)
--- NOTE | 2017-11-02 18:42 | Progress Note ---
DATE: November 02, 2017 SUBJECTIVE: Ms. Araiza remains in the intensive care unit intubated, sedated, on Levophed. OBJECTIVE VITAL SIGNS: Stable, currently afebrile. HEENT: Not icteric. Normocephalic. CHEST: A few crackles. HEART: S1 and S2, no murmur. ABDOMEN: Soft. Bowel sounds present. EXTREMITIES: No edema. SKIN: No rash. IMPRESSION: 1. Respiratory failure on a ventilator. 2. Septic shock. 3. Pancytopenia. 4. Coronary artery disease, status post 2-vessel bypass. 5. Hypertension. 6. Hyperlipidemia. 7. History of deep venous thrombosis. 8. Left lower extremity wound, status post multiple skin tears and wound care. 9. Multiple eschars and wounds on her chest. 10. Rheumatoid arthritis. 11. Altered mental status. 12. Funguria. Prognosis remains very guarded. She is currently on and meropenem. Continue with the same. Job#: [id number]
[2017-11-02] MEDS: SIMVASTATIN 20 MG TAB PO SCH (21:30)
[2017-11-03] VITALS (95 sets, daily range): BP systolic 51–173; BP diastolic 27–140
[2017-11-03] MEDS: NOREPINEPHRINE INJ 4MG/4ML 8 MG in DEXTROSE 5% 250ML 242 ML IV SCH (00:45)
[2017-11-03] MEDS: INSULIN REGULAR, HUMAN 100 UNIT/1 ML 3ML VIAL SQ SCH ×4 (01:05→19:06)
[2017-11-03 05:47] LABS: BASOPHILS # (AUTO) 0.1 (0.0-0.1); BASOPHILS % 0.1 % (0.0-1.0); EOSINOPHILS # (AUTO) 0.2 (0.0-0.4); EOSINOPHILS % 0.6 % (0.0-6.0); HEMATOCRIT 30.4 % (34.2-44.1); LYMPHOCYTES % 8.6 % (18.0-39.1); MEAN CORPUSCULAR HEMOGLOBIN 27.7 pg (28-32); MEAN CORPUSCULAR HGB CONC 32.9 g/dL (31-35); MEAN CORPUSCULAR VOLUME 84.2 fL (81-99); MONOCYTES # (AUTO) 1.5 (0.2-0.8); MONOCYTES % 4.3 % (4.4-11.3); NEUTROPHILS % 51.2 % (38.7-80.0); PLATELET COUNT 78 x10e3/uL (140-360); RED BLOOD COUNT 3.61 x10e6/uL (3.6-5.1); RED CELL DISTRIBUTION WIDTH 21.1 % (11.7-14.4)
[2017-11-03] MEDS: MEROPENEM 500 MG VIAL IV SCH ×2 (05:55→19:05)
[2017-11-03 06:05] LABS: ANION GAP 19.5 mmol/L (8-16); CALCIUM 8.5 mg/dL (8.4-10.2); CREATININE, SERUM 2.85 mg/dL (0.57-1.11); POTASSIUM 4.5 mmol/L (3.5-5.1)
[2017-11-03] MEDS: ALBUTEROL SULF 0.083% NEB SOLN 3 ML NEB NEB SCH ×3 (07:36→19:10)
--- NOTE | 2017-11-03 07:57 | Diagnostic Imaging Report ---
EXAMINATION: CHEST SINGLE (PORTABLE) INDICATION: \S\Intubated \[id number] \S\[id number] \S\Y COMPARISON: 11/02/2017 FINDINGS: AP view TUBES and LINES: Stable endotracheal tube, left internal jugular central line, and nasogastric tube. The endotracheal tube is approximately 2.4 cm above mechelle. LUNGS: Low lung volumes. Diffuse airspace opacities, unchanged. PLEURA: No visible pneumothorax. HEART AND MEDIASTINUM: The cardiomediastinal silhouette is enlarged. Median sternotomy wires. Aorta is calcified and tortuous. BONES AND SOFT TISSUES: No acute osseous lesion. Right shoulder hemiarthroplasty. Soft tissues are unremarkable. UPPER ABDOMEN: No free air under the diaphragm. IMPRESSION: No interval change from prior exam. Diffuse bilateral airspace opacities, representing edema and/or pneumonia. Possible small bilateral pleural effusions. Signed by: Dr. Nate Becerra MD on 11/03/2017 7:54 AM
[2017-11-03] MEDS: BALSAM PERU/CASTOR OIL 60 GM OINT...G. TP SCH ×2 (08:22→17:00)
[2017-11-03] MEDS: PANTOPRAZOLE SODIUM 40 MG SUSPDR.PKT PO SCH (08:22)
[2017-11-03] MEDS: LINEZOLID 600 MG/D5W 300ML 300 ML IV SCH ×2 (08:22→21:59)
[2017-11-03] MEDS: FOLIC ACID 1 MG TAB PO SCH (08:22)
[2017-11-03] MEDS: MAGNESIUM OXIDE 400 MG TAB PO SCH ×2 (08:22→17:00)
[2017-11-03] MEDS: HEPARIN 25,000U/0.45% NS 250ML 1,100 UNIT in SODIUM CHLORIDE 0.9% 250ML 0 ML IV SCH (13:00)
--- NOTE | 2017-11-03 14:36 | Progress Note ---
DATE: November 03, 2017 CARDIOLOGY PROGRESS NOTE SUBJECTIVE: Remains intubated and sedated on Levophed. OBJECTIVE Temperature is 100.1 and heart rate 100, respiratory rate 22, blood pressure 103/54. O2 sat 95% on vent support. Telemetry in sinus tachycardia. GENERAL: Intubated, sedated and coarse breath sounds. CARDIOVASCULAR: Regular rate and rhythm. Normal S1 and S2. ABDOMEN: Soft. EXTREMITIES: Trace edema. Legs with compressive dressings. There is cyanotic discoloration of toes. CARDIOVASCULAR MEDICATIONS: Reviewed. Simvastatin 10 mg nightly. STUDIES: White blood cells 33, hemoglobin 10, platelets 78,000. INR 1.6. Most recent PTT over 100. Heparin being adequately adjusted. Sodium 126, potassium 4.5, chloride 88, bicarbonate 23. BUN t120. Creatinine 2.8. Glucose 136. Calcium 8.5. ASSESSMENT: 1. Acute respiratory failure. 2. Septic shock. 3. Status post pancytopenia. 4. Coronary artery disease, status post 2 vessel bypass. 5. History of deep venous thrombosis. 6. Early gangrenous changes to toes/distal acrocyanosis. 7. Hypertension and dyslipidemia. 8. Lower extremity wounds and eschars. 9. History of rheumatoid arthritis. 10. Funguria. 11. Status post supratherapeutic INR. 12. Encephalopathy. 13. Elevated B-natriuretic peptide. 14. Electrolyte derangements. PLAN: Remains encephalopathic. Off sedation. Continues to require pressors. Try and wean as much as tolerated. Holiday from diuretics has been in advised and initiated. Will defer further volume management to nephrology. Continue current cardiovascular medications. Avoid antihypertensives including beta blockers for now. Continue antibiotics per ID and ventilator management per pulmonary. Overall guarded prognosis. Job#: [id number]
[2017-11-03] MEDS: FLUCONAZOLE 200 MG/100 ML 100 ML IV SCH (21:59)
[2017-11-03] MEDS: SIMVASTATIN 20 MG TAB PO SCH (21:59)
[2017-11-04] VITALS (114 sets, daily range): BP systolic 57–182; BP diastolic 20–77
[2017-11-04] MEDS: INSULIN REGULAR, HUMAN 100 UNIT/1 ML 3ML VIAL SQ SCH ×4 (00:20→18:42)
[2017-11-04] MEDS: ALBUTEROL SULF 0.083% NEB SOLN 3 ML NEB NEB SCH ×4 (00:36→22:58)
[2017-11-04] MEDS: NOREPINEPHRINE INJ 4MG/4ML 8 MG in DEXTROSE 5% 250ML 242 ML IV SCH ×2 (00:45→08:18)
[2017-11-04] MEDS: MEROPENEM 500 MG VIAL IV SCH ×2 (05:15→18:43)
[2017-11-04] MEDS ORDERED: ACETAMINOPHEN 1000 MG/100 ML IV PRN (05:45)
[2017-11-04] MEDS: SODIUM CHLORIDE 0.9% 1000ML 1,000 ML IV SCH ×2 (06:20→09:30)
--- NOTE | 2017-11-04 06:41 | Diagnostic Imaging Report ---
CHEST SINGLE (PORTABLE), 11/04/2017 5:00 AM Technique: CHEST SINGLE (PORTABLE) Comparison: 11/03/2017 Clinical history: Intubated Findings: See Impression Impression: 1. Lines/Tubes: Stable ET tube about 2.2 cm above the mechelle, left IJ central venous catheter, subdiaphragmatic NG tube, median sternotomy wires. 2. Stable cardiomediastinal silhouette, bilateral airspace opacities, and small effusions Signed by: Dr Dolly Drew MD on 11/04/2017 6:38 AM
[2017-11-04 07:34] LABS: BASOPHILS % 0.1 % (0.0-1.0); EOSINOPHILS % 0.1 % (0.0-6.0); HEMATOCRIT 29.5 % (34.2-44.1); HEMOGLOBIN 9.7 g/dL (12.0-16.0); LYMPHOCYTES # (AUTO) 3.2 (1.0-3.2); LYMPHOCYTES % 10.1 % (18.0-39.1); MEAN CORPUSCULAR HEMOGLOBIN 27.6 pg (28-32); MEAN CORPUSCULAR HGB CONC 32.9 g/dL (31-35); MONOCYTES # (AUTO) 1.7 (0.2-0.8); MONOCYTES % 5.4 % (4.4-11.3); NEUTROPHILS # (AUTO) 16.7 (2.1-6.9); NEUTROPHILS % 52.5 % (38.7-80.0); PLATELET COUNT 100 x10e3/uL (140-360); RED BLOOD COUNT 3.51 x10e6/uL (3.6-5.1); RED CELL DISTRIBUTION WIDTH 21.2 % (11.7-14.4)
[2017-11-04 07:53] LABS: ALBUMIN 1.5 g/dL (3.5-5.0); ALBUMIN/GLOBULIN RATIO 0.6 (0.8-2.0); ANION GAP 19.2 mmol/L (8-16); CALCIUM 8.2 mg/dL (8.4-10.2); CREATININE, SERUM 3.45 mg/dL (0.57-1.11); POTASSIUM 5.2 mmol/L (3.5-5.1)
[2017-11-04] MEDS: PANTOPRAZOLE SODIUM 40 MG SUSPDR.PKT PO SCH (08:05)
[2017-11-04] MEDS: LINEZOLID 600 MG/D5W 300ML 300 ML IV SCH ×2 (08:05→22:45)
[2017-11-04] MEDS: FOLIC ACID 1 MG TAB PO SCH (08:06)
[2017-11-04] MEDS: MAGNESIUM OXIDE 400 MG TAB PO SCH ×2 (08:06→18:43)
[2017-11-04] MEDS: BALSAM PERU/CASTOR OIL 60 GM OINT...G. TP SCH ×2 (08:06→18:42)
[2017-11-04] MEDS ORDERED: SODIUM CHLORIDE 0.9% 250ML 250 ML ONE (08:10)
--- NOTE | 2017-11-04 08:25 | Progress Note ---
DATE: Ms. Araiza remains in the ICU. Remains very ill. She has significant subcutaneous hematoma and bruising, as well as area of early necrosis noted on the skin. Patient overall remains ill. Apparently, no family has been visiting the patient except for son-in-law. The patient remains in the intensive care unit intubated and sedated. Her laboratory data was reviewed. Her chart reviewed. The patient remains very ill. Remains intubated. Remains on vasopressors. Still running fever. IMPRESSION 1. Respiratory failure. 2. Sepsis. 3. Pneumonia. 4. Status post pancytopenia. 5. Coronary artery disease. 6. History of deep venous thrombosis. 7. Early gangrenous changes noted: Concerned about Coumadin induced related. 8. Necrosis. 9. Hypertension. 10. Dyslipidemia. 11. Lower extremity wounds and eschar. 12. History of rheumatoid arthritis. 13. Funguria. 14. Congestive heart failure. So far, her blood cultures are no growth. Her white count today is 35.2, hemoglobin 10, hematocrit 30. Sodium 126, potassium 4.5, creatinine 2.85. The patient is on insulin, meropenem and linezolid, Lotrimin, Will add Diflucan. Will check blood cultures. Prognosis remains poor. Continue to follow the CBC and Chem panel. Job#: [id number] TONYA
[2017-11-04] MEDS ORDERED: LACTULOSE SYRUP 20 GM/30 ML UDC PO ONE (08:30)
[2017-11-04] MEDS ORDERED: SOD POLYSTYRENE SULFONATE SUSP 15 GM/60 ML BTL PO ONE (08:30)
--- NOTE | 2017-11-04 08:50 | Progress Note ---
DATE: November 02, 2017 CARDIOLOGY PROGRESS NOTE SUBJECTIVE: No complaints, intubated, on pressors. OBJECTIVE VITAL SIGNS: Temperature 98.5, heart rate 85, respiratory rate on pressor support. Discussed with nurse slow respiratory drive and advice on discussing further with pulmonary critical care considering SIMV. Blood pressure 90/50, O2 sat 96%. GENERAL: Intubated. CHEST: Coarse breath sounds. CARDIOVASCULAR: Regular rate and rhythm, systolic ejection murmur. ABDOMEN: Soft. EXTREMITIES: Trace edema. CARDIOVASCULAR MEDICATIONS: Bumetanide IV drip. Carvedilol 25 mg t.i.d. Simvastatin 10 mg nightly. STUDIES: White blood cells 29.3, hemoglobin 8.9, platelets 75,000 from yesterday, not from today. Labs from today: Sodium 129, potassium 5.1, chloride 93, bicarbonate 24, BUN 116, creatinine 2.39. AST 37, ALT 15, 29, 1.6. ASSESSMENT 1. Acute hypoxic respiratory failure on ventilator support. 2. Septic shock. 3. Pneumonia, restrictive. 4. Acute kidney injury on chronic kidney disease. 5. Pancytopenia, now recovering. 6. Coronary artery disease, status post 3-vessel aortocoronary bypass. 7. Hypertension. 8. Dyslipidemia. 9. History of deep venous thrombosis on chronic anticoagulation. 10. Left lower extremity wound, status post fall with multiple skin tears. 11. Supratherapeutic INR, status post vitamin K and fresh frozen plasma, now subtherapeutic. 12. Rheumatoid arthritis. 13. Encephalopathy. 14. Elevated B-natriuretic peptide. RECOMMENDATIONS: on echocardiogram. and diuretic on hold. hypotension on pressor support. Treat as sepsis for now. Defer management to other treating physicians. Will follow closely. Job#: [id number]
--- NOTE | 2017-11-04 10:56 | Diagnostic Imaging Report ---
PROCEDURE:CHEST XRAY LINE PLACEMENT TECHNIQUE:Portable AP chest INDICATION:Line placement COMPARISON:Patients [facility], DX, CHEST SINGLE (PORTABLE), 11/04/2017, 6:21. FINDINGS: See conclusion. CONCLUSION: 1. Right internal jugular central venous catheter tip at the atrial caval junction. No pneumothorax. 2. Findings are otherwise unchanged from 6:21 AM of the same date. Dictated by: Danilo Hughes M.D. on 11/04/2017 at 10:57 Electronically approved by: Danilo Hughes M.D. on 11/04/2017 at 10:57
--- NOTE | 2017-11-04 10:57 | Progress Note ---
DATE: November 04, 2017 CARDIOLOGY PROGRESS NOTE SUBJECTIVE: The patient remains intubated. She is unresponsive off sedation. Continues to require pressor support, Levophed 9 mcg per minute. OBJECTIVE VITALS: Temperature 99.3 degrees, pulse 87, respiratory rate 24, blood pressure 100/47, oxygen saturation 100% on mechanical ventilation. GENERAL: Intubated and unresponsive off sedation. No acute distress. LUNGS: Clear to auscultation bilaterally. No wheezes or crackles. CARDIOVASCULAR: Normal rate. Regular rhythm. No murmur. Normal S1 and S2. ABDOMEN: Soft and nontender. EXTREMITIES: One plus pitting edema in dependent areas. Scattered ecchymosis across the body. Sacral decubitus ulcer is present. CARDIAC MEDICATIONS 1. Levophed 9 mcg per minute. 2. Heparin drip. 3. Simvastatin 10 mg p.o. at bedtime. LABS: WBC 31.76, hemoglobin 9.7, hematocrit 29.5, and platelets 100,000. Sodium 123, potassium 5.2, chloride 89, CO2 20, BUN 126, creatinine 3.45. Telemetry is normal sinus rhythm. IMPRESSION 1. Acute hypoxic respiratory failure on mechanical ventilation. 2. Septic shock: Suspect pneumonia. 3. Hegra-qh-xjtjyxe kidney disease. 4. Pancytopenia. 5. Coronary artery disease: Status post 2-vessel coronary artery bypass graft. 6. Hypertension. 7. Hyperlipidemia. 8. History of deep venous thrombosis: On chronic anticoagulation. 9. Left lower extremity wounds: Status post fall with multiple skin tears. 10. Sacral decubitus ulcer. 11. Supratherapeutic INR: Status post vitamin K and fresh frozen plasma, now subtherapeutic. 12. Rheumatoid arthritis. 13. Altered mental status. 14. Electrolyte abnormalities with elevated brain natriuretic peptide. RECOMMENDATIONS: Echocardiogram demonstrated normal LV systolic function with impaired relaxation. Continue to hold beta blockers given continued pressor requirement. Volume management per nephrology. The patient has had a right IJ hemodialysis catheter placed today with plan for initiation of hemodialysis. Antibiotics per infectious disease. Ventilator management per pulmonary. Continue current cardiac medications. Thank you for this consult. We will continue to follow. Job#: [id number] [place]
--- NOTE | 2017-11-04 11:04 | Diagnostic Imaging Report ---
Non-tunneled Dialysis Catheter Placement 11/04/2017 Pre-Procedure Diagnosis: Acute renal failure; hyperkalemia Post-procedure Diagnosis:Acute renal failure; hyperkalemia Forensic Science Technician: Pippa Hughes Prep Room Supervisor: None Sedation: None. Heart rate and oxygen saturation were monitored in real-time. Blood pressure was measured in 5 minute increments. 1% lidocaine was used for local anesthesia. Estimate blood loss: <5 mL Blood administered: None Complications: None Implants/Grafts: 13 [place] 15 cm 3 lumen temporary dialysis catheter (Trialysis) Specimen: None Procedure: Informed consent was obtained and the patient positioned supine in the ICU. A timeout was performed, followed by preliminary ultrasound of the right internal jugular vein (see findings below). The right neck and chest were prepped and draped in standard fashion. Using real-time ultrasound guidance a 21 gauge vascular needle was used to access the high right internal jugular vein. An image was stored in the electronic medical record. A wire was advanced and the needle exchanged for a non-tunneled dialysis catheter using standard Salinger technique. At the end of the procedure the catheter was flushed, secured to the skin and a sterile dressing applied. The patient tolerated the procedure well and without immediate complication. Findings: Patent right internal jugular vein as demonstrated by normal ultrasound compressibility. The vein is small. Impression: Successful placement of a non-tunneled right internal jugular vein dialysis catheter using ultrasound guidance. This report was generated with voice-recognition technology. Errors in sustainability officer can occur. Please interpret accordingly and contact a radiologist if there are any questions regarding the report. Signed by: Dr. Danilo Hughes M.D. on 11/04/2017 11:01 AM
--- NOTE | 2017-11-04 11:04 | Diagnostic Imaging Report ---
Non-tunneled Dialysis Catheter Placement 11/04/2017 Pre-Procedure Diagnosis: Acute renal failure; hyperkalemia Post-procedure Diagnosis:Acute renal failure; hyperkalemia Industrial Therapist: Pippa Hughes Frontend Engineer: None Sedation: None. Heart rate and oxygen saturation were monitored in real-time. Blood pressure was measured in 5 minute increments. 1% lidocaine was used for local anesthesia. Estimate blood loss: <5 mL Blood administered: None Complications: None Implants/Grafts: 13 [place] 15 cm 3 lumen temporary dialysis catheter (Trialysis) Specimen: None Procedure: Informed consent was obtained and the patient positioned supine in the ICU. A timeout was performed, followed by preliminary ultrasound of the right internal jugular vein (see findings below). The right neck and chest were prepped and draped in standard fashion. Using real-time ultrasound guidance a 21 gauge vascular needle was used to access the high right internal jugular vein. An image was stored in the electronic medical record. A wire was advanced and the needle exchanged for a non-tunneled dialysis catheter using standard Salinger technique. At the end of the procedure the catheter was flushed, secured to the skin and a sterile dressing applied. The patient tolerated the procedure well and without immediate complication. Findings: Patent right internal jugular vein as demonstrated by normal ultrasound compressibility. The vein is small. Impression: Successful placement of a non-tunneled right internal jugular vein dialysis catheter using ultrasound guidance. This report was generated with voice-recognition technology. Errors in pre k teacher can occur. Please interpret accordingly and contact a radiologist if there are any questions regarding the report. Signed by: Dr. Danilo Hughes M.D. on 11/04/2017 11:01 AM
[2017-11-04] MEDS ORDERED: HEPARIN SOD (PORCINE) 1000 UNIT/ML SDV IV PRN (13:15)
[2017-11-04] MEDS ORDERED: SODIUM CHLORIDE 0.9% 1000ML 2,000 ML IV PRN (13:15)
[2017-11-04] MEDS ORDERED: MANNITOL 25% 12.5GM/50 ML VIAL IV PRN (13:15)
[2017-11-04] MEDS ORDERED: ALBUMIN HUMAN 12.5GM / 50ML IV PRN (13:15)
[2017-11-04] MEDS ORDERED: SODIUM CHLORIDE 0.9% 250ML 500 ML IV PRN (13:15)
[2017-11-04] MEDS: SIMVASTATIN 20 MG TAB PO SCH (22:45)
[2017-11-04] MEDS: FLUCONAZOLE 200 MG/100 ML 100 ML IV SCH (22:45)
[2017-11-05] VITALS (118 sets, daily range): BP systolic 73–199; BP diastolic 20–95
[2017-11-05] MEDS: INSULIN REGULAR, HUMAN 100 UNIT/1 ML 3ML VIAL SQ SCH ×4 (01:26→18:00)
[2017-11-05] MEDS: MEROPENEM 500 MG VIAL IV SCH ×2 (06:05→21:20)
[2017-11-05] MEDS: SODIUM CHLORIDE 0.9% 1000ML 1,000 ML IV SCH ×2 (06:05→13:06)
[2017-11-05 06:26] LABS: BASOPHILS # (AUTO) 0.1 (0.0-0.1); BASOPHILS % 0.3 % (0.0-1.0); LYMPHOCYTES # (AUTO) 2.5 (1.0-3.2); LYMPHOCYTES % 9.6 % (18.0-39.1); MEAN CORPUSCULAR HEMOGLOBIN 27.7 pg (28-32); MEAN CORPUSCULAR HGB CONC 31.7 g/dL (31-35); MEAN CORPUSCULAR VOLUME 87.6 fL (81-99); MONOCYTES # (AUTO) 1.1 (0.2-0.8); MONOCYTES % 4.2 % (4.4-11.3); NEUTROPHILS # (AUTO) 14.8 (2.1-6.9); NEUTROPHILS % 57.6 % (38.7-80.0); PLATELET COUNT 95 x10e3/uL (140-360); RED BLOOD COUNT 2.49 x10e6/uL (3.6-5.1)
[2017-11-05 06:30] LABS: HEMATOCRIT 21.8 % (34.2-44.1); HEMOGLOBIN 6.9 g/dL (12.0-16.0)
--- NOTE | 2017-11-05 06:30 | Diagnostic Imaging Report ---
EXAMINATION: CHEST SINGLE (PORTABLE) INDICATION: Intubated COMPARISON: 11/04/2017 FINDINGS: TUBES and LINES: Endotracheal, NG tube and right IJ dual-lumen and single lumen left IJ central line catheters LUNGS: Lungs are not well inflated. There are improving bibasilar atelectasis. Improving interstitial edema. PLEURA: Trace of left pleural effusion HEART AND MEDIASTINUM: The cardiomediastinal silhouette is unremarkable. There are atherosclerotic calcifications within the aorta. Midline sternotomy wires are intact. BONES AND SOFT TISSUES: No acute osseous lesion. Soft tissues are unremarkable. UPPER ABDOMEN: No free air under the diaphragm. IMPRESSION: Improving interstitial edema and bibasilar atelectasis. Signed by: Dr. Rico Daniels M.D. on 11/05/2017 6:27 AM
[2017-11-05 06:57] LABS: ALBUMIN 1.5 g/dL (3.5-5.0); ALBUMIN/GLOBULIN RATIO 0.8 (0.8-2.0); ANION GAP 20.2 mmol/L (8-16); CALCIUM 7.6 mg/dL (8.4-10.2); CREATININE, SERUM 2.6 mg/dL (0.57-1.11); POTASSIUM 4.2 mmol/L (3.5-5.1)
[2017-11-05] MEDS ORDERED: FUROSEMIDE INJ 10 MG/ML 2 ML VIAL IV PRN (07:15)
[2017-11-05] MEDS ORDERED: SODIUM CHLORIDE 0.9% 250ML 250 ML IV ONE ×2 (07:15→10:30)
[2017-11-05] MEDS: NOREPINEPHRINE INJ 4MG/4ML 8 MG in DEXTROSE 5% 250ML 242 ML IV SCH (07:30)
[2017-11-05] MEDS: BALSAM PERU/CASTOR OIL 60 GM OINT...G. TP SCH ×2 (09:00→17:00)
[2017-11-05] MEDS: FOLIC ACID 1 MG TAB PO SCH (09:58)
[2017-11-05] MEDS: MAGNESIUM OXIDE 400 MG TAB PO SCH ×2 (09:58→21:20)
[2017-11-05] MEDS: PANTOPRAZOLE SODIUM 40 MG SUSPDR.PKT PO SCH (09:58)
[2017-11-05] MEDS: LINEZOLID 600 MG/D5W 300ML 300 ML IV SCH ×2 (09:58→21:20)
[2017-11-05] MEDS ORDERED: VASOPRESSIN 100 UNIT in DEXTROSE 5% 100ML 100 ML IV PRN (10:30)
[2017-11-05] MEDS ORDERED: HEPARIN SOD (PORCINE) 1000 UNIT/ML SDV IV PRN (10:30)
[2017-11-05] MEDS ORDERED: ALBUMIN HUMAN 50 ML IV PRN (10:30)
[2017-11-05 11:52] LABS: BAND NEUTROPHILS % (MANUAL) 3 %; LYMPHOCYTES % (MANUAL) 4 % (19-48); METAMYELOCYTES % (MANUAL) 10 % (0-0); MONOCYTES % (MANUAL) 2 % (3.4-9.0); MYELOCYTES % (MANUAL) 5 % (0-0); NEUTROPHILS % (MANUAL) 75 % (40-74); NUCLEATED RED BLOOD CELLS 2
[2017-11-05 11:53] LABS: ANISOCYTOSIS SLIGHT; HYPOCHROMASIA MODERATE; PLATELET ESTIMATE SLIGHTLY DECREASED; RBC MORPHOLOGY COMMENT ABNORMAL
[2017-11-05 11:54] LABS: PLATELET MORPHOLOGY COMMENT MANY GIANT; VACUOLE,WBC MODERATE
--- NOTE | 2017-11-05 14:15 | Progress Note ---
DATE: November 05, 2017 CARDIOLOGY PROGRESS NOTE SUBJECTIVE: The patient remains intubated. She is unresponsive off sedation. She is on significant pressor support right now with Levophed 25 mcg per minute and vasopressin 0.02, currently receiving hemodialysis. OBJECTIVE VITALS: Temperature 98.3 degrees, pulse 80, respiratory rate 25, blood pressure 168/88, oxygen saturation 100% on mechanical ventilation. GENERAL: Intubated and unresponsive off sedation. No acute distress. LUNGS: Clear to auscultation bilaterally. No wheezes or crackles. CARDIOVASCULAR: Normal rate. Regular rhythm. No murmur. Normal S1 and S2. ABDOMEN: Soft and nontender. EXTREMITIES: 2+ pitting edema. Multiple ecchymoses across the body. Distal fingertips are cool and pale. Bilateral feet are likewise cool. There is noting of discoloration of the tip of the toes as well. CARDIAC MEDICATIONS 1. Levophed 25 mcg per minute. 2. Vasopressin 0.02. 3. Simvastatin 10 mg p.o. at bedtime. LABS: WBC 25.78, hemoglobin 6.9, hematocrit 21.8, platelets 95. Sodium 132, potassium 4.2, chloride 95, CO2 21, BUN 90, creatinine 2.6. TELEMETRY: Normal sinus rhythm. IMPRESSION 1. Acute hypoxic respiratory failure on mechanical ventilation. 2. Septic shock, suspect pneumonia. 3. Pluxj-cc-xryewga kidney disease, now initiated on hemodialysis. 4. Pancytopenia. 5. Coronary artery disease, status post 2-vessel coronary artery bypass graft. 6. Hypertension. 7. Hyperlipidemia. 8. History of deep venous thrombosis on chronic anticoagulation. 9. Left lower extremity wounds, status post fall with multiple skin tears. 10. Sacral decubitus ulcer. 11. Supratherapeutic international normalization ratio, status post vitamin K and fresh frozen plasma, now subtherapeutic. 12. Rheumatoid arthritis. 13. Altered mental status. 14. Electrolyte abnormalities with elevated brain natriuretic peptide. RECOMMENDATIONS: Echocardiogram demonstrated normal LV systolic function with impaired relaxation. Hold beta blockers, given continued pressor requirement, and volume management per nephrology. Wean Levophed as much as tolerated given changes in the distal fingertips and feet highly concerning for digital ischemia. Antibiotics per infectious disease. Ventilator management per pulmonary. Continue current cardiac medications. Her prognosis is poor. Heparin has been stopped due to drop in H and H and bleeding. Transfuse to keep hemoglobin above 7. Thank you for this consult. We will continue to follow. Job#: [id number] ROJELIO
[2017-11-05] MEDS: ALBUTEROL SULF 0.083% NEB SOLN 3 ML NEB NEB SCH ×3 (15:17→23:43)
[2017-11-05] MEDS: SIMVASTATIN 20 MG TAB PO SCH (21:20)
[2017-11-05] MEDS: FLUCONAZOLE 200 MG/100 ML 100 ML IV SCH (21:20)
[2017-11-06] VITALS (60 sets, daily range): BP systolic 105–147; BP diastolic 48–78
[2017-11-06] MEDS: SODIUM CHLORIDE 0.9% 1000ML 1,000 ML IV SCH (01:05)
[2017-11-06] MEDS: INSULIN REGULAR, HUMAN 100 UNIT/1 ML 3ML VIAL SQ SCH ×5 (06:00→23:06)
[2017-11-06 06:12] LABS: BASOPHILS # (AUTO) 0.1 (0.0-0.1); BASOPHILS % 0.3 % (0.0-1.0); HEMATOCRIT 24.3 % (34.2-44.1); HEMOGLOBIN 8.2 g/dL (12.0-16.0); LYMPHOCYTES # (AUTO) 1.3 (1.0-3.2); MEAN CORPUSCULAR HEMOGLOBIN 28.4 pg (28-32); MEAN CORPUSCULAR HGB CONC 33.7 g/dL (31-35); MEAN CORPUSCULAR VOLUME 84.1 fL (81-99); MONOCYTES # (AUTO) 1.3 (0.2-0.8); MONOCYTES % 5.9 % (4.4-11.3); NEUTROPHILS # (AUTO) 13.6 (2.1-6.9); PLATELET COUNT 53 x10e3/uL (140-360); RED BLOOD COUNT 2.89 x10e6/uL (3.6-5.1); RED CELL DISTRIBUTION WIDTH 17.6 % (11.7-14.4)
[2017-11-06 06:35] LABS: ALBUMIN 2.2 g/dL (3.5-5.0); ALBUMIN/GLOBULIN RATIO 1.7 (0.8-2.0); ANION GAP 13.7 mmol/L (8-16); CALCIUM 7.8 mg/dL (8.4-10.2); CREATININE, SERUM 1.67 mg/dL (0.57-1.11)
[2017-11-06 06:36] LABS: POTASSIUM 2.7 mmol/L (3.5-5.1)
--- NOTE | 2017-11-06 06:56 | Diagnostic Imaging Report ---
EXAMINATION: CHEST SINGLE (PORTABLE) INDICATION: Intubation COMPARISON: 11/05/2017 FINDINGS: TUBES and LINES: Endotracheal, NG tube, and bilateral IJ central line catheters are stable LUNGS: Worsening lung volumes . Worsening airspace opacities in the lung bases compatible with infection and atelectasis PLEURA: Small right pleural effusion. HEART AND MEDIASTINUM: Cardiac size is mildly enlarged. There are atherosclerotic calcifications within the aorta. BONES AND SOFT TISSUES: No acute osseous lesion. Partial right shoulder arthroplasty. Soft tissues are unremarkable. UPPER ABDOMEN: No free air under the diaphragm. IMPRESSION: Worsening airspace disease and interlobular septi thickening. Tubes and lines are stable Signed by: Dr. Rico Daniels M.D. on 11/06/2017 6:52 AM
[2017-11-06] MEDS ORDERED: POTASSIUM CHLORIDE 20MEQ/100ML 200 ML IV ONE (07:15)
[2017-11-06] MEDS: ALBUTEROL SULF 0.083% NEB SOLN 3 ML NEB NEB SCH ×3 (07:30→23:15)
[2017-11-06] MEDS: FOLIC ACID 1 MG TAB PO SCH (08:58)
[2017-11-06] MEDS: PANTOPRAZOLE SODIUM 40 MG SUSPDR.PKT PO SCH (08:58)
[2017-11-06] MEDS: MAGNESIUM OXIDE 400 MG TAB PO SCH ×2 (08:58→18:36)
[2017-11-06 09:22] LABS: BAND NEUTROPHILS % (MANUAL) 5 %; LYMPHOCYTES % (MANUAL) 5 % (19-48); METAMYELOCYTES % (MANUAL) 6 % (0-0); MONOCYTES % (MANUAL) 5 % (3.4-9.0); MYELOCYTES % (MANUAL) 6 % (0-0); NEUTROPHILS % (MANUAL) 69 % (40-74); NUCLEATED RED BLOOD CELLS 2
[2017-11-06 09:23] LABS: ANISOCYTOSIS SLIGHT; HYPOCHROMASIA MODERATE; PLATELET ESTIMATE MODERATELY DECREASED; PLATELET MORPHOLOGY COMMENT FEW GIANT; RBC MORPHOLOGY COMMENT NORMAL
[2017-11-06] MEDS: LINEZOLID 600 MG/D5W 300ML 300 ML IV SCH ×2 (10:40→21:30)
--- NOTE | 2017-11-06 17:57 | Diagnostic Imaging Report ---
Exam: Head CT without contrast History: Unresponsive, encephalopathy Comparison studies: Head CT 10/28/2017 Technique: Axial images were obtained from the skull base to the vertex. Coronal and sagittal images reconstructed from the axial data. Intravenous contrast: None Findings: Scalp: No abnormalities. Bones: No fractures, blastic or lytic lesions. Brain sulci: Mildly prominent. Ventricles: Mild compensatory dilatation. No hydrocephalus. Extra-axial spaces: No masses, no fluid collection. Parenchyma: No mass, acute hemorrhage or acute cortical vascular insult. 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 Additional smaller chronic cortical insults with encephalomalacia in the precuneus gyrus of the left parietal lobe and within the right middle frontal gyrus. A few scattered hypodensities in the supratentorial white matter are nonspecific but most compatible with chronic small vessel ischemic changes. Focal hypodensity in the right centrum semiovale is unchanged from the previous head CTs which date to 10/18/2017 compatible with chronic ischemic changes. Unchanged incidental punctate calcification in the left tiki without surrounding edema or mass effect is most likely sequela previous infection/inflammation. Sellar/suprasellar region: No abnormalities. Craniocervical junction: Patent foramen magnum. No Chiari one malformation. Incidental findings: Left sphenoid sinus is opacified. Atherosclerotic calcifications in the carotid siphons and intradural vertebral arteries. Bilateral lens replacements related to previous cataract surgery. IMPRESSION: No acute intracranial abnormalities. No changes from the previous head CT of 10/28/2017. Persistent findings: 1. Mild generalized volume loss. 2. Mild chronic microvascular ischemic changes. 3. Multifocal chronic insults with encephalomalacia as described. 4. Inflammatory changes in the left sphenoid sinus. Signed by: Dr. Jorge Villaseñor M.D. on 11/06/2017 5:54 PM
--- NOTE | 2017-11-06 19:19 | Progress Note ---
DATE: November 06, 2017 CARDIOLOGY PROGRESS NOTE SUBJECTIVE: The patient remains intubated. She has been weaned off pressors. She remains unresponsive. OBJECTIVE VITALS: Temperature 98.4 degrees, pulse 93, respiratory rate 12, blood pressure 132/56, oxygen saturation 99% on mechanical ventilation. GENERAL: Intubated and unresponsive off sedation. No acute distress. LUNGS: Clear to auscultation bilaterally. No wheezes or crackles. CARDIOVASCULAR: Normal rate. Regular rhythm. No murmur. Normal S1 and S2. ABDOMEN: Soft and nontender. EXTREMITIES: 2+ pitting edema with multiple ecchymoses across the body. Distal fingertips remain pale. CARDIAC MEDICATION: Simvastatin 10 mg p.o. at bedtime. LABS: WBC 21.94, hemoglobin 8.2, hematocrit 24.3, platelets 53,000. Sodium 137, potassium 2.7, chloride 97, CO2 29, BUN 54, creatinine 1.67. TELEMETRY: Normal sinus rhythm. IMPRESSION 1. Acute hypoxic respiratory failure, on mechanical ventilation. 2. Septic shock, suspect pneumonia. 3. Xmsyw-hs-eajgndi kidney disease, now initiated on hemodialysis. 4. Pancytopenia. 5. Coronary artery disease, status post 2-vessel coronary artery bypass graft. 6. Hypertension. 7. Hyperlipidemia. 8. History of deep venous thrombosis, on chronic anticoagulation. 9. Left lower extremity wounds, status post fall with multiple skin tears. 10. Sacral decubitus ulcer. 11. Supratherapeutic international normalization ratio, status post vitamin K and fresh frozen plasma, now subtherapeutic. 12. Rheumatoid arthritis. 13. Altered mental status. 14. Electrolyte abnormalities. 15. Elevated brain natriuretic peptide. RECOMMENDATIONS: Echocardiogram show normal LV systolic function with impaired relaxation. Hold beta blockers, given recent pressor requirement. Volume management per nephrology. Antibiotics per infectious disease. Ventilator management per pulmonary. Changes in the distal fingertips are highly concerning for digital ischemia. Her prognosis is poor. She is not able to tolerate anticoagulation due to drop in H and H and bleeding on anticoagulation. Transfuse to keep hemoglobin above 7. Continue current cardiac medications. Thank you for this consult. We will continue to follow. Job#: [id number] [facility]
[2017-11-06] MEDS: FLUCONAZOLE 200 MG/100 ML 100 ML IV SCH (19:52)
[2017-11-06] MEDS: SIMVASTATIN 20 MG TAB PO SCH (20:15)
[2017-11-06] MEDS: NOREPINEPHRINE INJ 4MG/4ML 8 MG in DEXTROSE 5% 250ML 242 ML IV SCH (22:38)
[2017-11-07] VITALS (25 sets, daily range): BP systolic 115–149; BP diastolic 58–86
[2017-11-07] MEDS: INSULIN REGULAR, HUMAN 100 UNIT/1 ML 3ML VIAL SQ SCH ×3 (06:00→18:00)
[2017-11-07] MEDS: LINEZOLID 600 MG/D5W 300ML 300 ML IV SCH ×2 (06:15→17:30)
[2017-11-07 06:36] LABS: ALBUMIN 2.1 g/dL (3.5-5.0); ALBUMIN/GLOBULIN RATIO 1.4 (0.8-2.0); ANION GAP 14.7 mmol/L (8-16); CALCIUM 8.4 mg/dL (8.4-10.2); CREATININE, SERUM 1.69 mg/dL (0.57-1.11); POTASSIUM 3.7 mmol/L (3.5-5.1)
--- NOTE | 2017-11-07 06:52 | Diagnostic Imaging Report ---
EXAMINATION: CHEST SINGLE (PORTABLE) INDICATION: Intubation COMPARISON: 11/05/2017 and 11/06/2017 FINDINGS: TUBES and LINES: Endotracheal, NG tube, and bilateral IJ central line catheters are stable LUNGS: Low lung volumes . Interval improvement in airspace opacities in the lung bases compatible with infection and atelectasis PLEURA: Small right pleural effusion. HEART AND MEDIASTINUM: Cardiac size is mildly enlarged. There are atherosclerotic calcifications within the aorta. BONES AND SOFT TISSUES: No acute osseous lesion. Partial right shoulder arthroplasty. Soft tissues are unremarkable. UPPER ABDOMEN: No free air under the diaphragm. IMPRESSION: Interval improvement in airspace disease and interlobular septi thickening. Tubes and lines are stable Signed by: Dr. Rico Daniels M.D. on 11/07/2017 6:49 AM
[2017-11-07] MEDS: ALBUTEROL SULF 0.083% NEB SOLN 3 ML NEB NEB SCH ×2 (07:10→23:25)
[2017-11-07] MEDS: PANTOPRAZOLE SODIUM 40 MG SUSPDR.PKT PO SCH (07:30)
[2017-11-07] MEDS ORDERED: MEROPENEM 500MG 500 MG in SODIUM CHLORIDE 0.9% 50ML 50 ML IV SCH (09:00)
[2017-11-07] MEDS ORDERED: MEROPENEM 500 MG VIAL IV SCH (09:00)
[2017-11-07] MEDS: FOLIC ACID 1 MG TAB PO SCH (09:59)
[2017-11-07] MEDS: MEROPENEM 500MG 500 MG in SODIUM CHLORIDE 0.9% 50ML 50 ML IV SCH ×2 (09:59→21:45)
[2017-11-07] MEDS: MAGNESIUM OXIDE 400 MG TAB PO SCH ×2 (09:59→17:30)
[2017-11-07] MEDS ORDERED: MEROPENEM 500 MG VIAL ONE (11:12)
--- NOTE | 2017-11-07 12:13 | Progress Note ---
DATE: November 07, 2017 CARDIOLOGY PROGRESS NOTE SUBJECTIVE: The patient remains intubated. She is awake and responds appropriately to questions. She denied chest pain or shortness of breath. OBJECTIVE VITALS: Temperature 96.1 degrees, pulse 97, respiratory rate 7, blood pressure 147/78, oxygen saturation 100% on mechanical ventilation. GENERAL: Intubated, responds appropriately to questions. LUNGS: Clear to auscultation bilaterally. No wheezes or crackles. CARDIOVASCULAR: Normal rate. Regular rhythm. No murmur. Normal S1 and S2. ABDOMEN: Soft and nontender. EXTREMITIES: 2+ pitting edema with multiple ecchymoses across the body. CARDIAC MEDICATION: Simvastatin 10 mg p.o. at bedtime. LABS: Sodium 134, potassium 3.7, chloride 97, CO2 26, BUN 55, creatinine 1.65. TELEMETRY: Sinus tachycardia. IMPRESSION 1. Acute hypoxic respiratory failure, on mechanical ventilation. 2. Septic shock, suspect pneumonia. 3. Iypca-xv-ovlbssr kidney disease, now initiated on hemodialysis. 4. Pancytopenia. 5. Sinus tachycardia. 6. Coronary artery disease, status post 2-vessel coronary artery bypass graft. 7. Hypertension. 8. Hyperlipidemia. 9. History of deep venous thrombosis on chronic anticoagulation. 10. Left lower extremity wounds, status post falls with multiple skin tears. 11. Sacral decubitus ulcer. 12. Supratherapeutic international normalization ratio, status post vitamin K and fresh frozen plasma, now subtherapeutic. 13. Rheumatoid arthritis. 14. Altered mental status. 15. Electrolyte abnormalities. 16. Elevated brain natriuretic peptide. RECOMMENDATIONS: Echocardiogram demonstrated normal LV systolic function with impaired relaxation. The patient's hemodynamics are acceptable. We will hold beta juan alberto for now, given her recent pressor requirement. Volume management per nephrology. Antibiotics per infectious disease. Her prognosis is poor. She was unable to tolerate anticoagulation due to drop in H and H and bleeding. Continue current cardiac medications. Thank you for this consult. We will continue to follow. Job#: [id number]
[2017-11-07 12:54] LABS: ABG PH 7.51 (7.31-7.41)
[2017-11-07 12:55] LABS: ABG HCO3 27 mmol/L (23-28); ABG PCO2 34 mmHg (41-51); ABG PO2 148 mmHg (80-105)
[2017-11-07] MEDS: FLUCONAZOLE 200 MG/100 ML 100 ML IV SCH (21:25)
[2017-11-07] MEDS: SIMVASTATIN 20 MG TAB PO SCH (21:25)
[2017-11-08] VITALS (25 sets, daily range): BP systolic 114–175; BP diastolic 68–106
[2017-11-08] MEDS: INSULIN REGULAR, HUMAN 100 UNIT/1 ML 3ML VIAL SQ SCH ×4 (00:24→18:00)
[2017-11-08] MEDS: NOREPINEPHRINE INJ 4MG/4ML 8 MG in DEXTROSE 5% 250ML 242 ML IV SCH (00:31)
[2017-11-08] MEDS: LINEZOLID 600 MG/D5W 300ML 300 ML IV SCH ×2 (05:36→18:00)
[2017-11-08 05:54] LABS: BASOPHILS # (AUTO) 0.2 (0.0-0.1); BASOPHILS % 0.6 % (0.0-1.0); EOSINOPHILS % 0.1 % (0.0-6.0); HEMATOCRIT 27.4 % (34.2-44.1); HEMOGLOBIN 9.2 g/dL (12.0-16.0); LYMPHOCYTES # (AUTO) 1.5 (1.0-3.2); LYMPHOCYTES % 5.6 % (18.0-39.1); MEAN CORPUSCULAR HEMOGLOBIN 29.1 pg (28-32); MEAN CORPUSCULAR HGB CONC 33.6 g/dL (31-35); MEAN CORPUSCULAR VOLUME 86.7 fL (81-99); MONOCYTES # (AUTO) 1.1 (0.2-0.8); MONOCYTES % 3.9 % (4.4-11.3); NEUTROPHILS % 73.6 % (38.7-80.0); PLATELET COUNT 61 x10e3/uL (140-360); RED BLOOD COUNT 3.16 x10e6/uL (3.6-5.1); RED CELL DISTRIBUTION WIDTH 17.2 % (11.7-14.4)
[2017-11-08 06:18] LABS: ALBUMIN 2.1 g/dL (3.5-5.0); ALBUMIN/GLOBULIN RATIO 1.2 (0.8-2.0); CALCIUM 8.6 mg/dL (8.4-10.2); CREATININE, SERUM 1.63 mg/dL (0.57-1.11)
[2017-11-08] MEDS: ALBUTEROL SULF 0.083% NEB SOLN 3 ML NEB NEB SCH (07:15)
[2017-11-08] MEDS: PANTOPRAZOLE SODIUM 40 MG SUSPDR.PKT PO SCH (07:30)
[2017-11-08 08:07] LABS: LYMPHOCYTES % (MANUAL) 2 % (19-48); METAMYELOCYTES % (MANUAL) 2 % (0-0); MONOCYTES % (MANUAL) 2 % (3.4-9.0); NEUTROPHILS % (MANUAL) 91 % (40-74); NUCLEATED RED BLOOD CELLS 2
[2017-11-08 08:09] LABS: RBC MORPHOLOGY COMMENT NORMAL
[2017-11-08 08:10] LABS: ANISOCYTOSIS SLIGHT; HYPERSEGMENTED NEUTROPHILS FEW; HYPOCHROMASIA SLIGHT; PLATELET ESTIMATE SLIGHTLY DECREASED; PLATELET MORPHOLOGY COMMENT FEW LARGE
[2017-11-08] MEDS: MAGNESIUM OXIDE 400 MG TAB PO SCH ×2 (09:00→17:00)
[2017-11-08] MEDS: FOLIC ACID 1 MG TAB PO SCH (09:00)
[2017-11-08] MEDS: MEROPENEM 500MG 500 MG in SODIUM CHLORIDE 0.9% 50ML 50 ML IV SCH ×2 (09:00→22:23)
[2017-11-08] MEDS ORDERED: METOPROLOL TARTRATE INJ 1 MG/ML VIAL IV ONE (10:00)
[2017-11-08] MEDS ORDERED: AMIODARONE HCL 150MG 100 ML IV ONE (10:00)
[2017-11-08 10:54] LABS: ABG HCO3 26 mmol/L (23-28); ABG PCO2 27 mmHg (41-51); ABG PH 7.59 (7.31-7.41); ABG PO2 144 mmHg (80-105)
[2017-11-08] MEDS: LEVALBUTEROL HCL SOLN NEBU 0.63 MG/3 ML NEB INH SCH ×2 (14:30→20:00)
[2017-11-08] MEDS ORDERED: BUMETANIDE 10 MG in SODIUM CHLORIDE 0.9% 100 ML 60 ML IV SCH (21:00)
[2017-11-08] MEDS: SIMVASTATIN 20 MG TAB PO SCH (22:23)
[2017-11-08] MEDS: FLUCONAZOLE 200 MG/100 ML 100 ML IV SCH (22:23)
--- NOTE | 2017-11-08 23:18 | Progress Note ---
DATE: November 08, 2017 CARDIOLOGY PROGRESS NOTE SUBJECTIVE: Patient was extubated to comfort care yesterday. She is awake. Denies chest pain or shortness of breath. OBJECTIVE VITALS: Temperature 97.6 degrees, pulse 115, respiratory rate 18, blood pressure 157/92, oxygen saturation 100% on 4 L nasal cannula. GENERAL: Awake, responds appropriately to questions, now extubated. LUNGS: Clear to auscultation bilaterally. No wheezes or crackles. CARDIOVASCULAR: Tachycardic, but regular. No murmur. Normal S1/S2. ABDOMEN: Soft, nontender. EXTREMITIES: 2+ pitting edema throughout with multiple ecchymoses across the body. CARDIAC MEDICATION: Simvastatin 10 mg p.o. nightly. LABS: WBC 27.17, hemoglobin 9.2, hematocrit 27.4, platelets 61,000. Sodium 131, potassium 4, chloride 94, CO2 26, BUN 56, creatinine 1.63. Sputum growing Crystal albicans. TELEMETRY: Sinus tachycardia. IMPRESSIONS 1. Acute hypoxic respiratory failure, now extubated. 2. Septic shock, suspect pneumonia. 3. Ezlce-pg-ksazrsh kidney disease, now initiated on hemodialysis. 4. Pancytopenia. 5. Sinus tachycardia. 6. Coronary artery disease, status post 2-vessel coronary artery bypass graft. 7. Hypertension. 8. Hyperlipidemia. 9. History of deep venous thrombosis, on chronic anticoagulation. 10. Left lower extremity wounds, status post falls with multiple skin tears. 11. Sacral decubitus ulcer. 12. Supratherapeutic international normalization ratio, status post vitamin K and fresh frozen plasma, now subtherapeutic. 13. Rheumatoid arthritis. RECOMMENDATIONS: Echocardiogram demonstrated normal LV systolic function with impaired relaxation. Patient was given metoprolol due to her sinus tachycardia. Recommend watching patient on telemetry. The patient's sinus tachycardia is likely a physiologic response to her current illness. Will not add scheduled beta-blockade unless heart rate climbs further. Volume management per nephrology. Antibiotics per infectious disease. Her prognosis is poor. She was unable to tolerate anticoagulation due to drop in H and H and bleeding. Continue current cardiac medications. Family is discussing their wishes, how the patient has been made DNR. Thank you for this consult. We will continue to follow. Job#: [id number] CQ
[2017-11-09] VITALS (23 sets, daily range): BP systolic 119–154; BP diastolic 59–85
[2017-11-09] MEDS: NOREPINEPHRINE INJ 4MG/4ML 8 MG in DEXTROSE 5% 250ML 242 ML IV SCH (00:06)
[2017-11-09] MEDS: LEVALBUTEROL HCL SOLN NEBU 0.63 MG/3 ML NEB INH SCH ×4 (00:40→19:20)
[2017-11-09] MEDS: INSULIN REGULAR, HUMAN 100 UNIT/1 ML 3ML VIAL SQ SCH ×4 (06:00→18:00)
[2017-11-09] MEDS: LINEZOLID 600 MG/D5W 300ML 300 ML IV SCH ×2 (06:04→17:45)
[2017-11-09] MEDS: PANTOPRAZOLE SODIUM 40 MG SUSPDR.PKT PO SCH (07:30)
[2017-11-09] MEDS: FOLIC ACID 1 MG TAB PO SCH (09:00)
[2017-11-09] MEDS: MEROPENEM 500MG 500 MG in SODIUM CHLORIDE 0.9% 50ML 50 ML IV SCH (09:00)
[2017-11-09] MEDS: MAGNESIUM OXIDE 400 MG TAB PO SCH ×2 (09:00→17:00)
[2017-11-09] MEDS: FUROSEMIDE INJ 10 MG/ML 4 ML VIAL IV SCH (11:30)
--- NOTE | 2017-11-09 13:46 | Progress Note ---
DATE: CARDIOLOGY PROGRESS NOTE SUBJECTIVE: The patient states that she has no complaints. OBJECTIVE VITAL SIGNS: Temperature 98.3, pulse 112, respiratory rate 16, blood pressure 132/73, oxygen saturation 100% on 2 L nasal cannula. CARDIOVASCULAR MEDICATIONS 1. Simvastatin 10 mg p.o. at bedtime. 2. Furosemide 40 mg IV daily. LABS: WBC 27.17, hemoglobin 9.2, hematocrit 27.4, platelets 61. Sodium 131, potassium 4.0, BUN 56, creatinine 1.63, glucose 125, AST 50, ALT 28, alkaline phosphatase 258 GENERAL: Drowsy, but responds appropriately to questions. Now extubated and on nasal cannula. LUNGS: Clear to auscultation bilaterally. No wheezing, rhonchi or crackles. CARDIOVASCULAR: Tachycardic, but regular rhythm. Normal S1 and S2. ABDOMEN: Soft and nontender. LOWER EXTREMITIES: Two-plus pitting edema throughout with multiple areas of ecchymosis across the whole body. TELEMETRY: Sinus tachycardia. IMPRESSION 1. Acute hypoxic respiratory failure, now extubated. 2. Septic shock, status post pneumonia. 3. Bftrk-id-wfqdyha kidney disease, now initiated on hemodialysis. However, it is reported the family would like to discontinue that. 4. Pancytopenia. 5. Sinus tachycardia. 6. Coronary artery disease, status post 2-vessel coronary artery bypass graft. 7. Hyperlipidemia. 8. Hypertension. 9. History of deep venous thrombosis on chronic anticoagulation. 10. Lower extremity wound status post fall with multiple skin tears. 11. Decubitus ulcer, sacral. 12. Supratherapeutic international normalization ratio, status post vitamin K and frozen plasma, now subtherapeutic. 13. Rheumatoid arthritis. RECOMMENDATIONS: Continue comfort care per family's request. The patient is now DNR. Continue the above list of cardiac medications. Maintain on telemetry. Consider transition to hospice. However, the patient's family would like to wait until Dr. Larson returns. Will continue to monitor closely and follow with them. Dictated by: Meron Bhardwaj NP Job#: [id number]
[2017-11-09] MEDS: SIMVASTATIN 20 MG TAB PO SCH (21:00)
[2017-11-09] MEDS ORDERED: MEROPENEM 500 MG VIAL ONE (22:50)
[2017-11-10] VITALS (7 sets, daily range): BP systolic 124–173; BP diastolic 63–86
[2017-11-10] MEDS: FLUCONAZOLE 200 MG/100 ML 100 ML IV SCH (00:16)
[2017-11-10] MEDS: MEROPENEM 500MG 500 MG in SODIUM CHLORIDE 0.9% 50ML 50 ML IV SCH ×3 (00:17→20:55)
[2017-11-10] MEDS: NOREPINEPHRINE INJ 4MG/4ML 8 MG in DEXTROSE 5% 250ML 242 ML IV SCH (00:45)
[2017-11-10] MEDS: LEVALBUTEROL HCL SOLN NEBU 0.63 MG/3 ML NEB INH SCH ×4 (03:05→22:40)
[2017-11-10] MEDS: INSULIN REGULAR, HUMAN 100 UNIT/1 ML 3ML VIAL SQ SCH ×4 (06:00→17:04)
[2017-11-10] MEDS: LINEZOLID 600 MG/D5W 300ML 300 ML IV SCH ×2 (06:12→17:03)
[2017-11-10] MEDS: PANTOPRAZOLE SODIUM 40 MG SUSPDR.PKT PO SCH (07:30)
[2017-11-10] MEDS: MAGNESIUM OXIDE 400 MG TAB PO SCH ×2 (08:19→17:00)
[2017-11-10] MEDS: FOLIC ACID 1 MG TAB PO SCH (08:19)
[2017-11-10] MEDS ORDERED: MEROPENEM 500 MG VIAL ONE ×2 (08:37→20:50)
[2017-11-10] MEDS: FUROSEMIDE INJ 10 MG/ML 4 ML VIAL IV SCH (09:29)
[2017-11-10 09:54] LABS: ANION GAP 12.2 mmol/L (8-16); CALCIUM 8.2 mg/dL (8.4-10.2); CREATININE, SERUM 1.47 mg/dL (0.57-1.11); POTASSIUM 4.2 mmol/L (3.5-5.1)
[2017-11-10] MEDS ORDERED: METOPROLOL TARTRATE INJ 1 MG/ML VIAL IV ONE (12:45)
[2017-11-10] MEDS ORDERED: DEXTROSE 5%/0.9% SOD CHL 1,000 ML IV ONE ×2 (12:45)
[2017-11-10] MEDS ORDERED: SODIUM CHLORIDE 0.9% 50ML 50 ML ONE (20:52)
[2017-11-10] MEDS: SIMVASTATIN 20 MG TAB PO SCH (20:55)
[2017-11-11] MEDS: NOREPINEPHRINE INJ 4MG/4ML 8 MG in DEXTROSE 5% 250ML 242 ML IV SCH ×2 (00:45→21:05)
[2017-11-11 00:58] VITALS: BP 136/64
[2017-11-11] MEDS: LEVALBUTEROL HCL SOLN NEBU 0.63 MG/3 ML NEB INH SCH ×4 (01:00→19:05)
[2017-11-11] MEDS: INSULIN REGULAR, HUMAN 100 UNIT/1 ML 3ML VIAL SQ SCH ×5 (01:59→20:51)
[2017-11-11] MEDS ORDERED: SODIUM CHLORIDE 0.9% 250ML 250 ML ONE (05:21)
[2017-11-11] MEDS: LINEZOLID 600 MG/D5W 300ML 300 ML IV SCH ×2 (05:24→16:47)
[2017-11-11 06:09] VITALS: BP 142/66
[2017-11-11] MEDS: PANTOPRAZOLE SODIUM 40 MG SUSPDR.PKT PO SCH (07:30)
[2017-11-11 07:32] LABS: BASOPHILS % 0.2 % (0.0-1.0); EOSINOPHILS # (AUTO) 0.2 (0.0-0.4); EOSINOPHILS % 1.1 % (0.0-6.0); HEMATOCRIT 23.3 % (34.2-44.1); LYMPHOCYTES % 4.8 % (18.0-39.1); MEAN CORPUSCULAR HEMOGLOBIN 28.7 pg (28-32); MEAN CORPUSCULAR VOLUME 86.9 fL (81-99); MONOCYTES # (AUTO) 0.8 (0.2-0.8); MONOCYTES % 3.6 % (4.4-11.3); NEUTROPHILS % 82.5 % (38.7-80.0); PLATELET COUNT 62 x10e3/uL (140-360); RED BLOOD COUNT 2.68 x10e6/uL (3.6-5.1)
[2017-11-11 07:54] LABS: HEMOGLOBIN 7.7 g/dL (12.0-16.0)
[2017-11-11] MEDS ORDERED: MEROPENEM 500 MG VIAL ONE ×2 (07:59→20:19)
[2017-11-11 08:00] VITALS: BP 132/63
[2017-11-11 08:19] LABS: ALBUMIN 1.7 g/dL (3.5-5.0); ALBUMIN/GLOBULIN RATIO 0.9 (0.8-2.0); ANION GAP 11.1 mmol/L (8-16); CREATININE, SERUM 1.29 mg/dL (0.57-1.11); POTASSIUM 4.1 mmol/L (3.5-5.1)
[2017-11-11] MEDS: MEROPENEM 500MG 500 MG in SODIUM CHLORIDE 0.9% 50ML 50 ML IV SCH ×2 (08:44→21:00)
[2017-11-11] MEDS: FUROSEMIDE INJ 10 MG/ML 4 ML VIAL IV SCH (08:44)
[2017-11-11] MEDS: MAGNESIUM OXIDE 400 MG TAB PO SCH ×2 (08:45→16:47)
[2017-11-11] MEDS: FOLIC ACID 1 MG TAB PO SCH (08:45)
[2017-11-11 10:31] LABS: BAND NEUTROPHILS % (MANUAL) 4 %; EOSINOPHILS % (MANUAL) 1 % (0-7); LYMPHOCYTES % (MANUAL) 7 % (19-48); METAMYELOCYTES % (MANUAL) 3 % (0-0); MONOCYTES % (MANUAL) 4 % (3.4-9.0); MYELOCYTES % (MANUAL) 2 % (0-0); NEUTROPHILS % (MANUAL) 79 % (40-74)
[2017-11-11 10:34] LABS: ANISOCYTOSIS SLIGHT; HYPOCHROMASIA MODERATE; PLATELET ESTIMATE MARKEDLY DECREASED; PLATELET MORPHOLOGY COMMENT FEW GIANT; POIKILOCYTOSIS SLIGHT; RBC MORPHOLOGY COMMENT NORMAL
[2017-11-11 12:00] VITALS: BP 127/60
--- NOTE | 2017-11-11 13:21 | Progress Note ---
DATE: November 11, 2017 CARDIOLOGY PROGRESS NOTE SUBJECTIVE: The patient denies chest pain or shortness of breath. OBJECTIVE VITAL SIGNS: Temperature 97.5 degrees, pulse 95, respiratory 18, blood pressure 132/63. Oxygen saturation 96% on 4 liters nasal cannula. GENERAL: Awake, responds appropriately to questions although appears quite weak. LUNGS: Clear to auscultation bilaterally. No wheezes or crackles. CARDIOVASCULAR: Normal rate, regular rhythm. No murmur. Normal S1, S2. ABDOMEN: Soft, nontender. EXTREMITIES: 2+ pitting edema throughout with multiple ecchymoses and dressing across the body. CARDIAC MEDICATIONS 1. Furosemide 40 mg IV daily. 2. Simvastatin 10 mg p.o. nightly. LABS: WBC 20.57, hemoglobin 7.7, hematocrit 23.3, platelets 62. Sodium 130, potassium 4.1, chloride 95, CO2 28, BUN 52, creatinine 1.29. IMPRESSION 1. Acute hypoxic respiratory failure now extubated. 2. Septic shock, suspect pneumonia. 3. Dfmqr-fc-buzypor kidney disease now initiated on hemodialysis. 4. Pancytopenia. 5. Sinus tachycardia. 6. Coronary artery disease status post 2-vessel coronary artery bypass graft. 7. Hypertension. 8. Hyperlipidemia. 9. History of deep vein thrombosis, on chronic anticoagulation. 10. Left lower extremity wound status post fall plus multiple skin tears. 11. Sacral decubitus ulcer. 12. Supratherapeutic international normalization ratio, status post vitamin K and fresh frozen plasma, now subtherapeutic. 13. Rheumatoid arthritis. RECOMMENDATIONS: Echocardiogram done showed normal LV systolic function with impaired LV relaxation. Sinus tachycardia has resolved. Volume management per nephrology given initiation on hemodialysis. Antibiotics per infectious disease. Patient was unable to tolerate anticoagulation due to drop in H and H and bleeding and she has had further drop in H and H even off anticoagulation. Continue current cardiac medications. Her prognosis is poor. Family plans to discuss possible transition to hospice with Dr. Larson. Thank you for this consult. We will continue to follow. Job#: [id number] JAYLEN
[2017-11-11 16:00] VITALS: BP 130/66
[2017-11-11 20:27] VITALS: BP 156/62
[2017-11-11] MEDS: SIMVASTATIN 20 MG TAB PO SCH (21:00)
[2017-11-12] VITALS (7 sets, daily range): BP systolic 102–177; BP diastolic 61–81
[2017-11-12] MEDS: LEVALBUTEROL HCL SOLN NEBU 0.63 MG/3 ML NEB INH SCH ×3 (01:25→19:20)
[2017-11-12] MEDS: LINEZOLID 600 MG/D5W 300ML 300 ML IV SCH ×2 (05:35→16:29)
[2017-11-12] MEDS: INSULIN REGULAR, HUMAN 100 UNIT/1 ML 3ML VIAL SQ SCH ×3 (05:36→17:12)
[2017-11-12 06:14] LABS: BASOPHILS # (AUTO) 0.1 (0.0-0.1); BASOPHILS % 0.4 % (0.0-1.0); EOSINOPHILS # (AUTO) 0.3 (0.0-0.4); EOSINOPHILS % 1.6 % (0.0-6.0); HEMATOCRIT 24.1 % (34.2-44.1); HEMOGLOBIN 7.9 g/dL (12.0-16.0); LYMPHOCYTES % 5.2 % (18.0-39.1); MEAN CORPUSCULAR HEMOGLOBIN 28.5 pg (28-32); MEAN CORPUSCULAR HGB CONC 32.8 g/dL (31-35); MONOCYTES # (AUTO) 0.7 (0.2-0.8); MONOCYTES % 3.8 % (4.4-11.3); NEUTROPHILS # (AUTO) 15.7 (2.1-6.9); NEUTROPHILS % 81.7 % (38.7-80.0); PLATELET COUNT 78 x10e3/uL (140-360); RED BLOOD COUNT 2.77 x10e6/uL (3.6-5.1); RED CELL DISTRIBUTION WIDTH 16.9 % (11.7-14.4)
[2017-11-12 06:38] LABS: ALBUMIN 1.9 g/dL (3.5-5.0); ALBUMIN/GLOBULIN RATIO 1.1 (0.8-2.0); ANION GAP 14.2 mmol/L (8-16); CALCIUM 8.3 mg/dL (8.4-10.2); CREATININE, SERUM 1.21 mg/dL (0.57-1.11); POTASSIUM 4.2 mmol/L (3.5-5.1)
[2017-11-12] MEDS: PANTOPRAZOLE SODIUM 40 MG SUSPDR.PKT PO SCH (07:30)
[2017-11-12] MEDS ORDERED: MEROPENEM 500 MG VIAL ONE ×2 (07:33→20:29)
[2017-11-12] MEDS: MAGNESIUM OXIDE 400 MG TAB PO SCH ×2 (07:36→16:29)
[2017-11-12] MEDS: FOLIC ACID 1 MG TAB PO SCH (07:36)
[2017-11-12] MEDS: FUROSEMIDE INJ 10 MG/ML 4 ML VIAL IV SCH (08:21)
[2017-11-12] MEDS: MEROPENEM 500MG 500 MG in SODIUM CHLORIDE 0.9% 50ML 50 ML IV SCH ×2 (08:21→21:20)
--- NOTE | 2017-11-12 09:49 | Consultation ---
DATE OF CONSULTATION: October 21, 2017 Cayla Araiza is an 87-year-old white female who was referred to me for coagulopathy. INR of 11.86, and also for anemia, thrombocytopenia and neutropenia. SOCIAL HISTORY: Noncontributory. FAMILY HISTORY: Noncontributory. ALLERGIES: REPORTED MORPHINE. MEDICATIONS: At this time: 1. Zosyn. 2. Sodium bicarbonate. 3. Ondansetron. 4. Duloxetine. 5. Folic acid. 6. Tylenol with hydrocodone. 7. Coreg. 8. Prednisone. 9. Protonix. 10. Simvastatin. 12. Methotrexate. REVIEW OF SYSTEMS HEENT: Normal. CARDIAC: History of hypertension. RESPIRATORY: Normal. GI: Normal. : Normal. MUSCULOSKELETAL: Normal except for history of DVT and rheumatoid arthritis, being treated with methotrexate 12.5 mg every week. PHYSICAL EXAMINATION GENERAL: Moderately built female shows bruising. Alert. HEART: Within normal limits. LUNGS: Clear. ABDOMEN: Obese. There is no hepatosplenomegaly. RECTAL: Vaginal examination deferred. CENTRAL NERVOUS SYSTEM: Essentially normal. EXTREMITIES: Severe rheumatoid arthritis with bruising. LABS: Shows a hemoglobin of 8.7, hematocrit 26.9, white count of 4116, and platelets 109,000. INR now is 2.63. Bilirubin 0.7, SGOT 20, SGPT 18, alkaline phosphatase 79, sodium 139, potassium 2.9, chloride 92, CO2 37, BUN 43, creatinine 1.9. IMPRESSION 1. Acquired coagulopathy. 2. Multiple skin tears because of fall. 3. Multiple leg ulcers. 4. Hypertension. 5. Chronic renal failure. 6. Rheumatoid arthritis. 7. Deep venous thrombosis. 8. Coronary artery disease. 9. Hyperlipidemia. 10. Anemia of blood loss. 11. Hypokalemia. 11. Hypoproteinemia. 12. Hypoalbuminemia. 13. Bilateral bronchopneumonia. 14. Right 10th and 11th ribs fractures. 15. T12 compression fracture. 16. Right renal cyst. 17. Pancytopenia because of methotrexate. PLAN, COMMENTS AND SUGGESTIONS: Will manage the coagulopathy. Stop the methotrexate. The patient during the course of hospitalization became very pancytopenic. Subsequently, Neupogen was given. Prognosis of this patient remains extremely guarded with multiple comorbidities. I will confine myself to hematology only. Job#: [id number] RI cc:MD TYLER THOMAS MD KARAN BHALLA, MD DAVID STEIN, MD
[2017-11-12 11:36] LABS: BAND NEUTROPHILS % (MANUAL) 2 %; EOSINOPHILS % (MANUAL) 1 % (0-7); LYMPHOCYTES % (MANUAL) 4 % (19-48); MONOCYTES % (MANUAL) 1 % (3.4-9.0); NEUTROPHILS % (MANUAL) 91 % (40-74)
[2017-11-12 11:37] LABS: ANISOCYTOSIS SLIGHT; HYPOCHROMASIA SLIGHT; PLATELET ESTIMATE SLIGHTLY DECREASED; PLATELET MORPHOLOGY COMMENT FEW LARGE; POIKILOCYTOSIS SLIGHT; RBC MORPHOLOGY COMMENT NORMAL
--- NOTE | 2017-11-12 12:46 | Progress Note ---
DATE: November 12, 2017 CARDIOLOGY PROGRESS NOTE SUBJECTIVE: Patient denies chest pain or shortness of breath. OBJECTIVE VITAL SIGNS: Temperature 97.7 degrees, pulse 111, respiratory rate 19, blood pressure 151/68, oxygen saturation 98% on 2 liters nasal cannula. GENERAL: Awake. Responds appropriately to questions although appears quite weak. In no acute distress. LUNGS: Clear to auscultation bilaterally. No wheezes or crackles. CARDIOVASCULAR: Normal rate, regular rhythm. No murmur. Normal S1 and S2. ABDOMEN: Soft, nontender. EXTREMITIES: 2+ pitting edema throughout with multiple ecchymoses and dressings across the body. CARDIAC MEDICATIONS 1. Furosemide 40 mg IV daily. 2. Simvastatin 10 mg p.o. nightly. LABS: WBC 19.17, hemoglobin 7.9, hematocrit 24.1, platelets 78. Sodium 135, potassium 4.2, chloride 97, CO2 28, BUN 50, creatinine 1.21. IMPRESSION 1. Acute hypoxic respiratory failure, now extubated. 2. Septic shock, suspect pneumonia. 3. Swehz-xc-awsbksf kidney disease, now initiated on hemodialysis. 4. Pancytopenia. 5. Sinus tachycardia. 6. Coronary artery disease status post 2-vessel coronary artery bypass graft. 7. Hypertension. 8. Hyperlipidemia. 9. History of deep vein thrombosis on chronic anticoagulation. 10. Left lower extremity wounds status post fall with multiple skin tears. 11. Sacral decubitus ulcer. 12. Supratherapeutic international normalized ratio status post vitamin K and fresh frozen plasma, now subtherapeutic. 13. Rheumatoid arthritis. RECOMMENDATIONS: Echocardiogram showed normal LV systolic function with impaired LV relaxation. Volume management per Nephrology given initiation on hemodialysis. Antibiotics per Infectious Disease. No anticoagulation at this time as patient could not tolerate anticoagulation due to drop in H/H with bleeding. Even off anticoagulation, she has continued to have worsening anemia. Continue current cardiac medications. Her prognosis is poor. Thank you for this consult. We will continue to follow. Job#: [id number] EV MTDJohn
--- NOTE | 2017-11-12 15:00 | Diagnostic Imaging Report ---
PROCEDURE:X-RAY MODIFIED BARIUM SWALLOW COMPARISON:None. INDICATIONS:Cough when eating DISCUSSION:Fluoroscopic examination was performed in conjunction with speech pathology, during swallowing of a variety of thin and thick liquid consistencies. Radiologist was not present during the study. Fluoroscopy time: 1.4 min Fluoroscopy Dose: 6.64 mGy CONCLUSION: Penetration and aspiration visualized during the exam. Please see the report from speech pathology for complete details. Dictated by: Nate Becerra M.D. on 11/12/2017 at 15:01 Electronically approved by: Nate Becerra M.D. on 11/12/2017 at 15:01
[2017-11-12] MEDS: SIMVASTATIN 20 MG TAB PO SCH (21:00)
[2017-11-13] VITALS (8 sets, daily range): BP systolic 119–149; BP diastolic 56–95
[2017-11-13] MEDS: NOREPINEPHRINE INJ 4MG/4ML 8 MG in DEXTROSE 5% 250ML 242 ML IV SCH (00:03)
[2017-11-13] MEDS: LEVALBUTEROL HCL SOLN NEBU 0.63 MG/3 ML NEB INH SCH ×2 (00:58→20:25)
[2017-11-13] MEDS: LINEZOLID 600 MG/D5W 300ML 300 ML IV SCH ×2 (05:50→17:59)
[2017-11-13] MEDS: INSULIN REGULAR, HUMAN 100 UNIT/1 ML 3ML VIAL SQ SCH ×5 (06:00→23:49)
[2017-11-13 06:42] LABS: ANION GAP 14.1 mmol/L (8-16); CALCIUM 8.3 mg/dL (8.4-10.2); CREATININE, SERUM 1.15 mg/dL (0.57-1.11); PHOSPHORUS 3.6 MG/DL (2.3-4.7); POTASSIUM 4.1 mmol/L (3.5-5.1)
[2017-11-13 07:05] LABS: MAGNESIUM 1.1 MG/DL (1.3-2.1)
[2017-11-13] MEDS: PANTOPRAZOLE SODIUM 40 MG SUSPDR.PKT PO SCH (07:30)
[2017-11-13] MEDS ORDERED: MEROPENEM 500 MG VIAL ONE ×2 (08:01→20:34)
[2017-11-13] MEDS ORDERED: MAGNESIUM SULFATE 2GM/50ML 50 ML IV ONE (08:45)
[2017-11-13] MEDS: MAGNESIUM OXIDE 400 MG TAB PO SCH ×2 (08:55→12:07)
[2017-11-13] MEDS: FUROSEMIDE INJ 10 MG/ML 4 ML VIAL IV SCH (08:55)
[2017-11-13] MEDS: FOLIC ACID 1 MG TAB PO SCH (08:55)
[2017-11-13] MEDS: MEROPENEM 500MG 500 MG in SODIUM CHLORIDE 0.9% 50ML 50 ML IV SCH ×2 (08:55→21:10)
--- NOTE | 2017-11-13 12:26 | Progress Note ---
DATE: November 13, 2017 SUBJECTIVE: Drowsy, but easily awakens. Remains swollen. PHYSICAL EXAMINATION VITALS: Temperature 98, pulse 113, blood pressure 120/95. HEENT: Facial puffiness. NEUROLOGIC: Awake, generalized weakness. SKIN: Scattered ecchymosis. CHEST: Decreased breath sounds at the bases. LABS: Creatinine 1.15, K is 4.1, serum CO2 28. ASSESSMENT: Status post acute kidney injury, probably chronic kidney disease stage 3, fluid overload, mostly third spacing at this point. PLAN: Low-dose Lasix and a.m. chemistries. No emergent need for dialysis. Consider palliative care. We will follow along. Job#: [id number] YARELI
--- NOTE | 2017-11-13 18:05 | Progress Note ---
DATE: November 13, 2017 CARDIOLOGY PROGRESS NOTE SUBJECTIVE: The patient denies chest pain or shortness of breath. Referral for hospice has been placed per family request. OBJECTIVE VITAL SIGNS: Temperature 97.5 degrees, pulse 113, respiratory rate 20, blood pressure 119/56, oxygen saturation 95% on 4 liters nasal cannula. GENERAL: Awake. Appears quite weak but responds appropriately to questions, in no acute distress. LUNGS: Clear to auscultation bilaterally. No wheezes or crackles. CARDIOVASCULAR: Normal rate, regular rhythm. No murmur. Normal S1 and S2. ABDOMEN: Soft, nontender. EXTREMITIES: 2+ pitting edema throughout with multiple ecchymoses and wounds across the body. CARDIAC MEDICATIONS 1. Lasix 40 mg IV daily. 2. Simvastatin 10 mg p.o. nightly. LABS: Sodium 134, potassium 4.1, chloride 96, CO2 of 28, BUN 48, creatinine 1.15. IMPRESSION 1. Acute hypoxic respiratory failure, now extubated. 2. Septic shock, suspect pneumonia. 3. Wfrcc-mg-sgrzssq kidney disease, recovering. 4. Pancytopenia. 5. Sinus tachycardia. 6. Coronary artery disease status post 2-vessel coronary artery bypass graft. 7. Hypertension. 8. Hyperlipidemia. 9. History of deep vein thrombosis on chronic anticoagulation. 10. Left lower extremity wounds, status post fall with multiple skin tears. 11. Sacral decubitus ulcer. 12. Supratherapeutic international normalized ratio status post vitamin K and fresh frozen plasma, now subtherapeutic. 13. Rheumatoid arthritis. RECOMMENDATIONS: Echocardiogram demonstrated normal LV systolic function with impaired LV relaxation. Volume management per nephrology. Antibiotics per infectious disease. No anticoagulation at this time as the patient could not tolerate anticoagulation due to drop in hemoglobin and hematocrit and bleeding. Continue current cardiac medications. Her prognosis is poor. Family has requested hospice evaluation. Thank you for this consult. We will continue to follow. Job#: [id number]
[2017-11-13] MEDS: SIMVASTATIN 20 MG TAB PO SCH (21:00)
[2017-11-14] VITALS (8 sets, daily range): BP systolic 120–142; BP diastolic 57–75
[2017-11-14] MEDS: LEVALBUTEROL HCL SOLN NEBU 0.63 MG/3 ML NEB INH SCH ×3 (02:35→19:12)
[2017-11-14] MEDS: INSULIN REGULAR, HUMAN 100 UNIT/1 ML 3ML VIAL SQ SCH ×3 (06:00→17:26)
[2017-11-14] MEDS: PANTOPRAZOLE SODIUM 40 MG SUSPDR.PKT PO SCH (07:30)
[2017-11-14] MEDS: FUROSEMIDE INJ 10 MG/ML 4 ML VIAL IV SCH (08:38)
[2017-11-14] MEDS: MAGNESIUM OXIDE 400 MG TAB PO SCH ×2 (08:38→17:00)
[2017-11-14] MEDS: FOLIC ACID 1 MG TAB PO SCH (08:38)
--- NOTE | 2017-11-14 14:49 | Progress Note ---
DATE: November 14, 2017 CARDIOLOGY PROGRESS NOTE SUBJECTIVE: Patient denies chest pain or shortness of breath. Hospice evaluation is pending. OBJECTIVE VITAL SIGNS: Temperature 97.6 degrees, pulse 114, respiratory rate 20, blood pressure 121/69, oxygen saturation 94% on 2 liters nasal cannula. GENERAL: Elderly woman, frail, no acute distress. Appears quite weak but does respond appropriately to questions. LUNGS: Clear to auscultation bilaterally. No wheezes or crackles. CARDIOVASCULAR: Normal rate, regular rhythm. No murmur. Normal S1 and S2. ABDOMEN: Soft, nontender. EXTREMITIES: 2+ pitting edema throughout with multiple ecchymoses and skin tears across the body. CARDIAC MEDICATIONS 1. Lasix 40 mg IV daily. 2. Simvastatin 10 mg p.o. nightly. LABS: None today. IMPRESSION 1. Acute hypoxic respiratory failure, now extubated. 2. Septic shock, suspect pneumonia. 3. Hvydc-ud-ecksqep kidney disease, recovering. 4. Pancytopenia. 5. Sinus tachycardia. 6. Coronary artery disease, status post 2-vessel coronary artery bypass graft. 7. Hypertension. 8. Hyperlipidemia. 9. History of deep vein thrombosis, on chronic anticoagulation. 10. Left lower extremity wound, status post fall, with multiple skin tears. 11. Sacral decubitus ulcer. 12. Supratherapeutic international normalized ratio, status post vitamin K and fresh frozen plasma, now subtherapeutic. 13. Rheumatoid arthritis. RECOMMENDATIONS: Echocardiogram demonstrated normal LV systolic function with impaired LV relaxation. Volume management per Nephrology. Antibiotics per Infectious Disease. No anticoagulation at this time as patient could not tolerate prior anticoagulation secondary to bleeding and irwgm-js-efoeuru anemia. Continue current cardiac medications otherwise. The patient is being evaluated for hospice. Thank you for this consult. We will continue to follow. Job#: [id number] EV
[2017-11-14] MEDS: SIMVASTATIN 20 MG TAB PO SCH (19:20)
[2017-11-15] VITALS (8 sets, daily range): BP systolic 129–157; BP diastolic 59–75
[2017-11-15] MEDS: LEVALBUTEROL HCL SOLN NEBU 0.63 MG/3 ML NEB INH SCH ×4 (01:15→19:38)
[2017-11-15] MEDS: INSULIN REGULAR, HUMAN 100 UNIT/1 ML 3ML VIAL SQ SCH ×4 (06:00→16:08)
[2017-11-15 06:54] LABS: CALCIUM 8.6 mg/dL (8.4-10.2); CREATININE, SERUM 1.23 mg/dL (0.57-1.11)
[2017-11-15] MEDS: PANTOPRAZOLE SODIUM 40 MG SUSPDR.PKT PO SCH (07:30)
[2017-11-15] MEDS: MAGNESIUM OXIDE 400 MG TAB PO SCH ×2 (09:00→16:08)
[2017-11-15] MEDS: FOLIC ACID 1 MG TAB PO SCH (09:00)
--- NOTE | 2017-11-15 10:46 | Progress Note ---
DATE: November 15, 2017 Remains weak. Occasionally wakes up. Denies dyspnea. PHYSICAL EXAMINATION VITALS: Temperature is 96.9, pulse 126, blood pressure 137/75. CHEST: Decreased breath sounds at the bases. EXTREMITIES: Trace edema. SKIN: Various bruises. NEURO: Generalized weakness. Creatinine is stable around 1.2. Estimated GFR of 41. Sodium is dropping at 132. She does have some history of swelling and some fluid overload in the past. ASSESSMENT 1. Hyponatremia. 2. Chronic kidney disease. 3. Free fluid overload. PLAN: Increase Lasix to 20 mg b.i.d. IV. Will follow along. Job#: [id number] TONYA
[2017-11-15] MEDS: FUROSEMIDE INJ 10 MG/ML 4 ML VIAL IV SCH (16:08)
--- NOTE | 2017-11-15 17:00 | Progress Note ---
DATE: November 15, 2017 CARDIOLOGY PROGRESS NOTE SUBJECTIVE: Patient denies chest pain or shortness of breath. OBJECTIVE VITAL SIGNS: Temperature 96.9 degrees, pulse 126, respiratory rate 18, blood pressure 137/75, oxygen saturation 98% on 2 liters nasal cannula. GENERAL: Awake, alert, in no acute distress. Elderly woman, frail. Appears quite weak. LUNGS: Clear to auscultation bilaterally. No wheezes or crackles. CARDIOVASCULAR: Normal rate, regular rhythm. No murmur. Normal S1 and S2. ABDOMEN: Soft, nontender. EXTREMITIES: 2+ pitting edema throughout with multiple ecchymoses and skin tears across the body. CARDIAC MEDICATIONS 1. Furosemide 40 mg IV b.i.d. 2. Simvastatin 10 mg p.o. nightly. LABS: WBC 19.17, hemoglobin 7.9, hematocrit 24.1, platelets 78. Sodium 132, potassium 4, chloride 93, CO2 25, BUN 48, creatinine 1.23. IMPRESSION 1. Acute hypoxic respiratory failure, now extubated. 2. Septic shock, suspect pneumonia. 3. Zvnde-xf-okmgmqr kidney disease, recovering. 4. Pancytopenia. 5. Sinus tachycardia. 6. Coronary artery disease, status post 2-vessel coronary artery bypass graft. 7. Hypertension. 8. Hyperlipidemia. 9. History of deep vein thrombosis, on chronic anticoagulation. 10. Lower extremity wounds, status post fall with multiple skin tears. 11. Sacral decubitus ulcer. 12. Supratherapeutic international normalized ratio, status post vitamin K and fresh frozen plasma, now subtherapeutic. 13. Rheumatoid arthritis. RECOMMENDATIONS: Echocardiogram demonstrated normal LV systolic function, impaired LV relaxation. Volume management per Nephrology. Antibiotics per Infectious Disease. No anticoagulation at this time as patient could not tolerate prior anticoagulation secondary to bleeding and waecx-ea-[id number] anemia. Continue current cardiac medications otherwise. Sinus tachycardia is likely a physiologic response to her current illness. As patient is being evaluated for hospice, would not start metoprolol for rate control unless heart rate climbs further. Thank you for this consult. We will continue to follow. Job#: [id number] EV
[2017-11-15] MEDS: SIMVASTATIN 20 MG TAB PO SCH (21:00)
[2017-11-16] VITALS: BP 152/77
[2017-11-16] MEDS: LEVALBUTEROL HCL SOLN NEBU 0.63 MG/3 ML NEB INH SCH ×3 (01:10→12:36)
[2017-11-16 04:00] VITALS: BP 132/62
[2017-11-16] MEDS: INSULIN REGULAR, HUMAN 100 UNIT/1 ML 3ML VIAL SQ SCH ×3 (06:00→12:00)
[2017-11-16] MEDS: PANTOPRAZOLE SODIUM 40 MG SUSPDR.PKT PO SCH (07:30)
[2017-11-16] MEDS: FUROSEMIDE INJ 10 MG/ML 4 ML VIAL IV SCH (08:30)
[2017-11-16] MEDS: MAGNESIUM OXIDE 400 MG TAB PO SCH (09:00)
[2017-11-16] MEDS: FOLIC ACID 1 MG TAB PO SCH (09:00)
[2017-11-16 09:55] LABS: CALCIUM 8.5 mg/dL (8.4-10.2); CREATININE, SERUM 1.34 mg/dL (0.57-1.11); MAGNESIUM 1.5 MG/DL (1.3-2.1); PHOSPHORUS 4.6 MG/DL (2.3-4.7)
--- NOTE | 2017-11-16 14:37 | Progress Note ---
DATE: INFECTIOUS DISEASE PROGRESS NOTE SUBJECTIVE: Ms. Araiza is nonverbal. The family decided to make her DNR and to go with hospice, which I totally agree with. The patient is currently ill. PHYSICAL EXAMINATION GENERAL: She is nonverbal. VITAL SIGNS: Stable. Currently afebrile. HEENT: She does not appear icteric. NECK: Supple. CHEST: A few rhonchi. HEART: S1 and S2. No S3 or S4, no murmur. ABDOMEN: Soft. IMPRESSION 1. Respiratory failure. 2. Status post sepsis, status post septic shock. 3. Acute tubular necrosis. 4. Pancytopenia. 5. Coronary artery disease. 6. Hyperlipidemia. 7. Obesity. Patient is extremely ill. Agree with comfort care and hospice. Infectious Disease will sign off. Job#: [id number] CHRISTINE
--- NOTE | 2017-11-16 14:46 | Progress Note ---
DATE: November 16, 2017 CARDIOLOGY PROGRESS NOTE SUBJECTIVE: Patient denies chest pain or shortness of breath. OBJECTIVE VITAL SIGNS: Temperature 96.3 degrees, pulse 123, respiratory rate 18, blood pressure 132/62, oxygen saturation 100% on 2 liters nasal cannula. GENERAL: Elderly woman, frail, no acute distress. Awake and alert. Appears quite weak. LUNGS: Clear to auscultation bilaterally. No wheezes or crackles. CARDIOVASCULAR: Normal rate, regular rhythm. No murmur. Normal S1 and S2. ABDOMEN: Soft, nontender. EXTREMITIES: 2+ pitting edema throughout with multiple ecchymoses and skin tears across the body. CARDIAC MEDICATIONS 1. Furosemide 40 mg IV b.i.d. 2. Simvastatin 10 mg p.o. nightly. LABS: Sodium 135, potassium 4, chloride 96, CO2 25, BUN 55, creatinine 1.34. IMPRESSION 1. Acute hypoxic respiratory failure, now extubated. 2. Septic shock, suspect pneumonia. 3. Tubtg-rx-nbdvubc kidney disease, recovering. 4. Pancytopenia. 5. Sinus tachycardia. 6. Coronary artery disease, status post 2-vessel coronary artery bypass graft. 7. Hypertension. 8. Hyperlipidemia. 9. History of deep vein thrombosis, on chronic anticoagulation. 10. Left lower extremity wounds, status post fall with multiple skin tears. 11. Sacral decubitus ulcer. 12. Supratherapeutic international normalized ratio, status post warfarin and fresh frozen plasma, now subtherapeutic. 13. Rheumatoid arthritis. RECOMMENDATIONS: Echocardiogram demonstrated normal LV systolic function and impaired relaxation. Volume management per nephrology. Antibiotics per Infectious Disease. No anticoagulation at this time as the patient could not tolerate anticoagulation secondary to bleeding and lxnhx-ny-trwnugi anemia. Continue the current cardiac medications. Sinus tachycardia is a physiologic response to the patient's current illness. The patient is planned to transition to hospice today. Thank you for this consult. We will continue to follow. Job#: [id number] CHRISTINE
== END 2017-11-16 15:22 | DRG 291 ==
LOC: ER 11:05 → EDBEDREQ 12:36 → ERHOLD 12:57 → MED/SURG3 13:52 → ICU 10-28 18:43 → MED/SURG2 11-09 22:28
PROVIDERS: ADMIT Internal Medicine; ATTEND Internal Medicine
PROC: 30233L1 Transfusion of Nonautologous Fresh Plasma into Peripheral Vein, Percutaneous Approach (ICD-10-PCS; 2017-10-19)
PROC: 30233N1 Transfusion of Nonautologous Red Blood Cells into Peripheral Vein, Percutaneous Approach (ICD-10-PCS; 2017-10-19)
PROC: 0BH17EZ Insertion of Endotracheal Airway into Trachea, Via Natural or Artificial Opening (ICD-10-PCS; principal; 2017-10-29)
PROC: 5A1955Z Respiratory Ventilation, Greater than 96 Consecutive Hours (ICD-10-PCS; 2017-10-29)
PROC: 02HV33Z Insertion of Infusion Device into Superior Vena Cava, Percutaneous Approach (ICD-10-PCS; 2017-11-04)
PROC: B5181ZA Fluoroscopy of Superior Vena Cava using Low Osmolar Contrast, Guidance (ICD-10-PCS; 2017-11-04)
PROC: 5A1D70Z Performance of Urinary Filtration, Intermittent, Less than 6 Hours Per Day (ICD-10-PCS; 2017-11-04)
PROC: 5A1D70Z Performance of Urinary Filtration, Intermittent, Less than 6 Hours Per Day (ICD-10-PCS; 2017-11-05)
DX: I13.0 Hypertensive heart and chronic kidney disease with heart failure and stage 1 through stage 4 chronic kidney disease, or unspecified chronic kidney disease (principal); N17.0 Acute kidney failure with tubular necrosis; J96.01 Acute respiratory failure with hypoxia; R65.21 Severe sepsis with septic shock; A41.9 Sepsis, unspecified organism; G93.41 Metabolic encephalopathy; J18.9 Pneumonia, unspecified organism; L89.150 Pressure ulcer of sacral region, unstageable; I50.33 Acute on chronic diastolic (congestive) heart failure; D61.818 Other pancytopenia; D62 Acute posthemorrhagic anemia; E87.1 Hypo-osmolality and hyponatremia; B37.49 Other urogenital candidiasis; I96 Gangrene, not elsewhere classified; S22.41XA Multiple fractures of ribs, right side, initial encounter for closed fracture; N17.9 Acute kidney failure, unspecified; W19.XXXA Unspecified fall, initial encounter; I25.10 Atherosclerotic heart disease of native coronary artery without angina pectoris; M06.9 Rheumatoid arthritis, unspecified; E66.9 Obesity, unspecified; Z68.29 Body mass index [BMI] 29.0-29.9, adult; N18.3 Chronic kidney disease, stage 3 (moderate); E87.6 Hypokalemia; S41.112A Laceration without foreign body of left upper arm, initial encounter; R79.1 Abnormal coagulation profile; T45.515A Adverse effect of anticoagulants, initial encounter; E87.5 Hyperkalemia; E87.8 Other disorders of electrolyte and fluid balance, not elsewhere classified; Z66 Do not resuscitate; L89.322 Pressure ulcer of left buttock, stage 2; N28.1 Cyst of kidney, acquired; M81.0 Age-related osteoporosis without current pathological fracture; L89.301 Pressure ulcer of unspecified buttock, stage 1; W01.0XXA Fall on same level from slipping, tripping and stumbling without subsequent striking against object, initial encounter; E83.42 Hypomagnesemia; S41.101A Unspecified open wound of right upper arm, initial encounter; D63.1 Anemia in chronic kidney disease; Z79.4 Long term (current) use of insulin; Z95.1 Presence of aortocoronary bypass graft; Z79.01 Long term (current) use of anticoagulants; Z86.718 Personal history of other venous thrombosis and embolism; Z23 Encounter for immunization; D70.9 Neutropenia, unspecified; E77.8 Other disorders of glycoprotein metabolism
CPT/HCPCS: 36415; 36556; 36600; 51700; 70450; 71045; 71250; 72125; 74018; 74176; 74230; 74470; 76770; 76937; 80048; 80053; 81001; 82140; 82270; 82550; 82553; 82607; 82728; 82746; 82805; 82948; 83540; 83690; 83735; 83880; 84100; 84132; 84439; 84443; 84466; 84484; 85007; 85014; 85018; 85025; 85027; 85610; 85730; 86704; 86706; 86850; 86900; 86920; 87040; 87070; 87071; 87086; 87205; 87340; 87493; 90714; 93005; 93306; 94002; 94003; 94640; 96360; 96361; 96365; 96366; 96367; 96372; 96376; 97139; 99284; J0330; J1442; J1450; J1644; J1940; J2020; J2150; J2185; J2250; J2543; J3370; J3430; J3480; J7030; J7042; J7050; J7070; J8610; P9016; P9017